=== PATIENT | male | born 1935 | race Caucasian/White ===

== ENCOUNTER 2016-12-10 09:38 | Observation (INO) ==
[2016-12-10] MEDS ORDERED: methylPREDNISolone 125 MG/2 ML VIAL IVP ONE (10:28)
[2016-12-10] MEDS ORDERED: Ipratropium/Albuterol Neb 3 ML IH ONE (10:29)
[2016-12-10] MEDS ORDERED: Ipratropium/Albuterol Neb 3 ML ONE (10:45)
[2016-12-10 11:00] LABS: Basophils % 0.2 %; Eosinophils # 0.2 K/mcL (0.0-0.6); Eosinophils % 2.2 %; Hematocrit 35.9 % (37.5-50.1); Immature Granulocytes % 0.2 % (0-4); Lymphocytes # 1.4 K/mcL (0.6-4.6); Lymphocytes % 15.9 %; Mean Corpuscular HGB Conc 30.6 g/dL (31.6-35.5); Mean Corpuscular Hemoglobin 25.8 pg (28.0-33.3); Mean Corpuscular Volume 84.1 fL (83.0-100.0); Mean Platelet Volume 10.1 fL (9.4-12.4); Monocytes # 0.9 K/mcL (0.0-1.3); Monocytes % 10.9 %; Platelet Count 250 K/mcL (140-400); Red Blood Count 4.27 M/mcL (4.19-5.50); Red Cell Distribution Width 15.4 % (11.5-14.5); Segmented Neutrophils % 70.6 %
[2016-12-10 11:14] LABS: BUN/Creatinine Ratio 16 (6-26); Blood Urea Nitrogen 20 mg/dL (8-26); Calcium 9.1 mg/dL (8.6-10.8); Carbon Dioxide 26 mEq/L (19-29); Chloride 107 mEq/L (98-109); Glucose 90 mg/dL (70-99); Osmolality,Calculated 292 (280-300); Potassium 4.1 mEq/L (3.5-4.5); Sodium 140 mEq/L (136-145); eGFR For African Americans > 60 (> 60); eGFR For Non-African Americans 57 (> 60)
[2016-12-10] MEDS ORDERED: Furosemide 40 MG/4 ML VIAL IVP ONE (13:14)
[2016-12-10] MEDS ORDERED: Acetaminophen 325 MG TABLET PO PRN (14:21)
[2016-12-10] MEDS ORDERED: Naloxone 0.4 MG/ML INJ IVP PRN (14:21)
--- NOTE | 2016-12-10 14:27 | Internal Med History&Physical ---
Date of Encounter: 12/10/16 Time of Encounter: 14:25 Assessment and Plan (1) Acute exacerbation of CHF (congestive heart failure) Current visit: No Status: Acute IV lasix, I/Os Qualifiers: Congestive heart failure type: diastolic Qualified Code(s): I50.33 - Acute on chronic diastolic (congestive) heart failure (2) Atrial fibrillation Current visit: No Status: Chronic on eliquis, continue rate agent. Paroxysmal Qualifiers: Atrial fibrillation type: paroxysmal Qualified Code(s): I48.0 - Paroxysmal atrial fibrillation (3) COPD (chronic obstructive pulmonary disease) Current visit: No Status: Chronic stable. duonebs Qualifiers: COPD type: emphysema Emphysema type: unspecified Qualified Code(s): J43.9 - Emphysema, unspecified (4) CKD (chronic kidney disease) Current visit: No Status: Chronic Qualifiers: Chronic kidney disease stage: stage 3 (moderate) Qualified Code(s): N18.3 - Chronic kidney disease, stage 3 (moderate) Internal Medicine - H&P: HPI Chief complaint: SOB History of present illness: Mr. Abraham is a 81 year old male with hx of P.AFib opon eliquis, CHF, CKD, emphysema who presents with acute onset SOB. SOB reported onset in the last few days. Unable to perform house hold chores such as feeding the chicken or walking around the neighborhood. At baseline, he is on RA. He uses prn lasix as he gain weights. EKG personally reviewed with rate 50, sinus guillaume HISTORY: ORDERING SYSTEM PROVIDED HISTORY: dyspnea Additional tech notes: 1...LAB/IV/RN @[id number] TREATMENT FINDINGS: Cardiac silhouette is enlarged. Small bilateral pleural effusions, greater on the left. Interstitial prominence in the mid and lower lungs. No pneumothorax. Mild wedge compression deformities of the mid thoracic spine. XR/XR chest 2V IMPRESSION: Findings as above likely related to congestive heart failure and mild edema. Past Med Surg Social Fam HX - Past Medical History Medical history: atrial fibrillation, CHF, COPD, GERD, renal disease Psychiatric history: no psych history - Past Surgical History Surgical History: no surgical history - Social History Smoking Status: Former smoker Smokeless Tobacco Status: No Alcohol use: none Drug use: none - Family History Brother Hx Family Cardiac Disorders: Yes (multiple family members with atrial fibrillation) Internal Medicine - H&P: Meds Acetaminophen [Tylenol] 650 mg PO Q6HR PRN 11/10/16 [History] Aspirin [Lo-Dose Aspirin EC] 81 mg PO DAILY 11/10/16 [History] Ergocalciferol (VITAMIN D2) [Vitamin D2] 50,000 unit PO QWEEK 11/10/16 [History] Metoprolol [Lopressor] 50 mg PO BID 11/10/16 [History] Montelukast [Singulair] 10 mg PO DAILY 11/10/16 [History] Ranitidine HCl [Zantac] 150 mg PO BID 11/10/16 [History] Tamsulosin [Flomax] 0.4 mg PO DAILY 11/10/16 [History] Tiotropium Br/Olodaterol HCl [Stiolto Respimat Inhal [place]] 2 puff IH DAILY 11/18 [History] Apixaban [Eliquis] 2.5 mg PO BID #30 tab 11/12/16 [Rx] Furosemide [Lasix] 20 mg PO DAILY #30 tab 11/12/16 [Rx] 3 Allergy/AdvReac Type Severity Reaction Status Date / Time prednisone Allergy See Verified 11/10/16 08:53 Comments All Systems PM: A 10-system review of systems was performed and is negative for pertinent findings except as documented above in the HPI. Review of systems: ROS 14 point review of systems reviewed as best as possible given presentation. Pertinent positive or negative as per HPI or otherwise reviewed as negative - Constitutional Vitals: Temp Pulse Resp BP Pulse Ox 97.9 F 123 15 126/67 95 12/10/16 09:58 12/10/16 13:57 12/10/16 14:21 12/10/16 14:21 12/10/16 13:57 Exam: General - AAO x 3 Psych - Appropriate affect/speech. No agitation Eyes - LOU. Eye lids intact. No scleral icterus Heart - Sinus. RRR. S1 and S2 present. No added HS/murmurs appreciated. No elevated JVD appreciated. Lung - Adequate air entry b/l, and crackles throughout GI - Soft, non-tender. No hepatosplenomegaly/ascites. BS+ - No CVA/suprapubic tenderness or palpable bladder distension Skin - Intact. No rash/petechiae/ecchymosis. Warm extremities. Trace lower extremity edema Internal Med - H&P Results - Labs CBC & Chem 7: 12/10/16 10:50 12/10/16 10:50
--- NOTE | 2016-12-10 14:29 | Emergency Department Note ---
Disposition Clinical Impression: Congestive heart failure Qualifiers: Congestive heart failure type: unspecified congestive heart failure type Congestive heart failure chronicity: acute on chronic Qualified Code(s): I50.9 - Heart failure, unspecified COPD (chronic obstructive pulmonary disease) Qualifiers: COPD type: emphysema Emphysema type: unspecified Qualified Code(s): J43.9 - Emphysema, unspecified Disposition: Admitted As Inpatient Condition: Good Referrals: Jadiel Almodovar MD [Primary Care Provider] - Time of Disposition: 14:35 SOB HPI - General Chief Complaint: ED Shortness of Breath/Dyspnea Stated Complaint: ROGELIO Time Seen by Provider: 12/10/16 10:06 Source: patient Mode of arrival: ambulatory Limitations: no limitations Nursing Notes Reviewed: Yes Vital Signs Reviewed: Yes - History of Present Illness Patient presents to emergency room with increased work of breathing chest heaviness and shortness of breath. He has a history congestive heart failure, paroxysmal A. fib, emphysema. He denies any trauma or injuries. He denies any chest pain fevers chills nausea vomiting or diarrhea. His main complaint is chest pressure. He follows up closely with his housefellow and takes eliquis at home. His atrial fibrillation Pt Subjective Complaint: shortness of breath Onset (ago): day(s) Severity: moderate Consistency/Duration: constant Improves with: rest Worsens with: lying flat, exertion Known history of: COPD, congestive heart failure Associated symptoms: Reports: denies other symptoms Treatment prior to arrival: oxygen Cough present: No Cough Frequency: Intermittent Sputum production: No - Related Data Home oxygen amount: none Home Medications Medication Instructions Recorded Confirmed Acetaminophen [Tylenol] 650 mg PO Q6HR PRN 11/10/16 12/10/16 Aspirin [Lo-Dose Aspirin EC] 81 mg PO DAILY 11/10/16 12/10/16 Ergocalciferol (VITAMIN D2) 50,000 unit PO QWEEK 11/10/16 12/10/16 [Vitamin D2] Metoprolol [Lopressor] 50 mg PO BID 11/10/16 12/10/16 Montelukast [Singulair] 10 mg PO DAILY 11/10/16 12/10/16 Ranitidine HCl [Zantac] 150 mg PO BID 11/10/16 12/10/16 Tamsulosin [Flomax] 0.4 mg PO DAILY 11/10/16 12/10/16 Tiotropium Br/Olodaterol HCl 2 puff IH DAILY 11/10/16 12/10/16 [Stiolto Respimat Inhal [place]] Previous Rx's Medication Instructions Recorded Apixaban [Eliquis] 2.5 mg PO BID #30 tab 11/12/16 Furosemide [Lasix] 20 mg PO DAILY #30 tab 11/12/16 Allergies Allergy/AdvReac Type Severity Reaction Status Date / Time prednisone Allergy See Verified 11/10/16 08:53 Comments All systems ED: reviewed and negative except as stated. Review of Systems: As Per HPI Constitutional: Denies: fever, chills, weakness Cardiovascular: Reports: dyspnea on exertion, orthopnea. Denies: chest pain, palpitations, edema Respiratory: Reports: dyspnea. Denies: cough, wheezes, hemoptysis Gastrointestinal: Denies: abdominal pain, nausea, vomiting, diarrhea Genitourinary: Denies: dysuria, frequency Musculoskeletal: Denies: back pain, neck pain Neurological: Denies: headache, weakness Past Medical History - Past Medical History Attestation: Yes The following information was validated with the patient. Source: patient Medical history: Reports: atrial fibrillation, CHF, COPD, GERD, renal disease Surgical history: Reports: no surgical history Psychiatric history: Reports: no psych history - Social History Smoking Status: Former smoker Smokeless Tobacco Status: No Alcohol use: Reports: none Drug use: Reports: none Physical Exam - General Limitations: no limitations General appearance: alert, in no apparent distress - Head Head exam: atraumatic, normocephalic, normal inspection - ENT ENT exam: normal exam, normal oropharynx, mucous membranes moist - Neck Neck exam: Present: normal inspection, full ROM, trachea midline - Chest Chest inspection: Present: normal inspection, symmetric chest wall rise - Respiratory Respiratory exam: Present: respiratory distress, wheezes, accessory muscle use. Absent: stridor - Cardiovascular Cardiovascular exam: Present: regular rate, normal rhythm, normal heart sounds - Abdominal Exam Abdominal exam: Present: soft, Non-Tender, normal bowel sounds. Absent: tenderness, distention, guarding, rebound, rigidity - Extremities Exam Extremities exam: Present: normal inspection, full ROM, normal capillary refill. Absent: tenderness - Back Exam Back exam: Present: normal inspection, full ROM. Absent: tenderness - Neurological Exam Neurological exam: Present: alert, oriented X3, CN II-XII intact, normal gait - Skin Skin exam: Present: warm, dry, intact, normal color Course Course Narrative: Patient seen and examined the time of arrival. See history of present illness. 81-year-old male presents emergency room for evaluation of chest heaviness and shortness of breath. Has a long-standing history of emphysema, congestive heart failure, paroxysmal atrial fibrillation. Denies any recent medication changes, denies any fevers or chills nausea vomiting or diarrhea. Denies chest pain shortness of breath headache or vision change. No other new symptoms at this time excess for the chest heaviness and feeling like he cannot get a full breath in. Physical exam is relatively unremarkable. Patient has no acute signs of infectious etiology. Trach is midline no stridor noted. Lungs are clear but he does have accessory muscle use and does not take full inspiration. Heart rate is regular with no other issues. Abdomen is soft nontender nondistended. No signs of pitting edema and evaluation. Patient speaking in full sentences alert oriented and in no apparent distress. Vital signs reviewed on presentation patient is otherwise stable. Evaluation be completed for cardiac related issues as well as congestive heart failure presentation. Patient will have present treatments and steroids given here as needed for symptom control of what appears to be emphysema. Lasix to be provided as needed. EKG and troponin labs otherwise going to be ordered. Symptom control will be provided. She will most likely need admission for further evaluate - Reevaluation(s) Reevaluation #1: Patient has negative laboratory workup this time except for elevated BNP. Kidney function is stable at this time. Laboratory workup was otherwise unremarkable. First dose of Lasix given here secondary to what appears to be congestive presentation on chest x-ray. Patient's symptoms have resolved since being provided with a breathing treatment. EKG showed sinus rhythm bradycardia with normal intervals and normal axis. No acute signs of ST segment elevation or concern. Patient to be admitted for what appears to be congestive heart failure. Detailed conversation with the accepting physician Dr. junior was completed. No other recommendations or concerns noted at this time. Patient is otherwise stable and in no distress at the time of admission. Time: 14:34 Vital Signs Temperature 97.9 F 12/10/16 09:58 Pulse Rate 60 12/10/16 09:58 Respiratory Rate 18 12/10/16 09:58 Blood Pressure 142/51 12/10/16 09:58 O2 Sat by Pulse Oximetry 94 12/10/16 09:58 Temperature 97.9 F 12/10/16 09:58 Pulse Rate 123 12/10/16 13:57 Respiratory Rate 15 12/10/16 14:21 Blood Pressure 126/67 12/10/16 14:21 O2 Sat by Pulse Oximetry 95 12/10/16 13:57 Oxygen Delivery Oxygen Delivery Nasal Cannula Shortness of Breath/Dyspnea - MDM Narrative Medical decision making narrative: Congestive heart failure, exertional dyspnea, chest pressure - Medical Records Medical records reviewed: Yes I reviewed the patient's medical records. - Lab Data Lab results reviewed: Yes I reviewed the patient's lab results. Result diagrams: 12/10/16 10:50 12/10/16 10:50 Lab Results 12/10/16 12/10/16 12/10/16 Range/Units 10:50 10:50 10:50 WBC 8.5 (4.3-11.1) K/mcL RBC 4.27 (4.19-5.50) M/mcL Hgb 11.0 L (12.9-16.9) g/dL Hct 35.9 L (37.5-50.1) % MCV 84.1 (83.0-100.0) fL MCH 25.8 L (28.0-33.3) pg MCHC 30.6 L (31.6-35.5) g/dL RDW 15.4 H (11.5-14.5) % Plt Count 250 (140-400) K/mcL MPV 10.1 (9.4-12.4) fL Immature Gran % 0.2 (0-4) % Seg Neutrophils % 70.6 % Lymphocytes % 15.9 % Monocytes % 10.9 % Eosinophils % 2.2 % Basophils % 0.2 % Neutrophils # 6.0 (1.6-8.9) K/mcL Lymphocytes # 1.4 (0.6-4.6) K/mcL Monocytes # 0.9 (0.0-1.3) K/mcL Eosinophils # 0.2 (0.0-0.6) K/mcL Basophils # 0.0 (0.0-0.2) K/mcL Sodium 140 (136-145) mEq/L Potassium 4.1 (3.5-4.5) mEq/L Chloride 107 (98-109) mEq/L Carbon Dioxide 26 (19-29) mEq/L BUN 20 (8-26) mg/dL Creatinine 1.23 (0.72-1.25) mg/dL Est GFR ( Amer) > 60 (> 60) Est GFR (Non-Af Amer) 57 L (> 60) BUN/Creatinine Ratio 16 (6-26) Glucose 90 (70-99) mg/dL Calculated Osmolality 292 (280-300) Lactic Acid 0.7 (0.5-2.2) mmol/L Calcium 9.1 (8.6-10.8) mg/dL Troponin I (0-0.03) ng/mL B-Natriuretic Peptide (0-100) pg/mL 12/10/16 12/10/16 Range/Units 10:50 10:50 WBC (4.3-11.1) K/mcL RBC (4.19-5.50) M/mcL Hgb (12.9-16.9) g/dL Hct (37.5-50.1) % MCV (83.0-100.0) fL MCH (28.0-33.3) pg MCHC (31.6-35.5) g/dL RDW (11.5-14.5) % Plt Count (140-400) K/mcL MPV (9.4-12.4) fL Immature Gran % (0-4) % Seg Neutrophils % % Lymphocytes % % Monocytes % % Eosinophils % % Basophils % % Neutrophils # (1.6-8.9) K/mcL Lymphocytes # (0.6-4.6) K/mcL Monocytes # (0.0-1.3) K/mcL Eosinophils # (0.0-0.6) K/mcL Basophils # (0.0-0.2) K/mcL Sodium (136-145) mEq/L Potassium (3.5-4.5) mEq/L Chloride (98-109) mEq/L Carbon Dioxide (19-29) mEq/L BUN (8-26) mg/dL Creatinine (0.72-1.25) mg/dL Est GFR ( Amer) (> 60) Est GFR (Non-Af Amer) (> 60) BUN/Creatinine Ratio (6-26) Glucose (70-99) mg/dL Calculated Osmolality (280-300) Lactic Acid (0.5-2.2) mmol/L Calcium (8.6-10.8) mg/dL Troponin I 0.01 (0-0.03) ng/mL B-Natriuretic Peptide 1718 H (0-100) pg/mL - Radiology Data Radiology results reviewed: Yes I reviewed the patient's radiology results. Chest x-ray shows pulmonary congestion otherwise no signs of infiltrate - EKG Data EKG attestation: Yes I reviewed and interpreted this EKG. EKG shows normal: Reports: sinus rhythm, axis, intervals, QRS complexes, ST-T waves Rate: Reports: bradycardia Rhythm: Reports: NSR When compared to previous EKG there are: no significant changes Interpretation: Reports: no acute changes, unchanged when compared to prior tracing (date)
[2016-12-10] MEDS: Furosemide 40 MG/4 ML VIAL IVP SCH (18:26)
[2016-12-10] MEDS: APIXABAN 5 MG TABLET PO SCH (20:33)
[2016-12-10] MEDS: Famotidine 20 MG TABLET PO SCH (20:33)
[2016-12-11 05:05] LABS: Calcium 9.1 mg/dL (8.6-10.8); Magnesium 1.7 mg/dL (1.6-2.6); Potassium 3.6 mEq/L (3.5-4.5)
[2016-12-11] MEDS: Aspirin Enteric Coated 81 MG Tablet PO SCH (08:30)
[2016-12-11] MEDS: APIXABAN 5 MG TABLET PO SCH ×2 (08:30→22:28)
[2016-12-11] MEDS: Furosemide 40 MG/4 ML VIAL IVP SCH (08:31)
[2016-12-11] MEDS: Famotidine 20 MG TABLET PO SCH (08:31)
[2016-12-11] MEDS ORDERED: Tiotropium Br/Olodaterol Hcl [Stiolto Respimat Inhal IH SCH (09:00)
[2016-12-11] MEDS ORDERED: Potassium Chloride Elixir 20 MEQ/15 ML UDC PO ONE (09:38)
[2016-12-11] MEDS ORDERED: Magnesium Sulfate 2 GM in D5% in Water 100 ML IVPB ONE (09:39)
[2016-12-11] MEDS ORDERED: Levalbuterol Neb 0.63 MG/3 ML IH PRN (11:57)
--- NOTE | 2016-12-11 14:03 | Internal Med Progress Note ---
<RocaelflowerKanchan - Last Filed: 12/11/16 13:59> Date of Encounter: 12/11/16 Time of Encounter: 09:45 - Assessment and plan (1) Acute exacerbation of CHF (congestive heart failure) Current Visit: Yes Status: Acute Assessment and plan: Patient with physical exam findings, chest x-ray, and BNP value of 1700 also suggestive of acute exacerbation of congestive heart failure. -Monitor I's and O's. -IV Lasix was dropped to 20 mg a day today as patient had a bump in his creatinine overnight from 1.23-1.41. -Echocardiogram on 08-18-16 shows an ejection fraction of 60%. Mild to moderate mitral regurgitation and moderate to severe aortic stenosis. Qualifiers: Congestive heart failure type: diastolic Qualified Code(s): I50.33 - Acute on chronic diastolic (congestive) heart failure (2) COPD (chronic obstructive pulmonary disease) Current Visit: No Status: Chronic Assessment and plan: Patient has been tachycardic overnight to the low 100s. -We will give him Xopenex instead of albuterol containing meds. -Spiriva inhaler once a day. -This does not appear to be a COPD exacerbation as patient does not have any wheezes on physical exam. Qualifiers: COPD type: emphysema Emphysema type: unspecified Qualified Code(s): J43.9 - Emphysema, unspecified (3) Atrial fibrillation Current Visit: No Status: Chronic Assessment and plan: Patient on Eliquis for anticoagulation and metoprolol for rate control. Qualifiers: Atrial fibrillation type: paroxysmal Qualified Code(s): I48.0 - Paroxysmal atrial fibrillation (4) CKD (chronic kidney disease) Current Visit: No Status: Chronic Assessment and plan: Patient's creatinine elevated to 1.41 from 1.23 yesterday which is his baseline. -We will continue to encourage oral intake. Decrease the amount of Lasix to 20 mg IV daily. -Avoid nephrotoxic agents. - Qualifiers: Chronic kidney disease stage: stage 3 (moderate) Qualified Code(s): N18.3 - Chronic kidney disease, stage 3 (moderate) (5) Aortic stenosis Current Visit: No Status: Chronic Assessment and plan: Patient has close cardiology follow-up for his aortic stenosis which is moderate to severe. Qualifiers: Cardiac valve disease etiology: etiology unspecified Qualified Code(s): I35.0 - Nonrheumatic aortic (valve) stenosis (6) DVT prophylaxis Current Visit: Yes Status: Acute Assessment and plan: Patient taking Eliquis. - Subjective Interval history: Mr. Eric Rushing is a 81-year-old male with past medical history of atrial fibrillation on request, CHF, CAD and COPD who presented to the emergency department with acute onset of shortness of breath. Patient said chest x-ray and physical exam suggestive of congestive heart failure acute exacerbation. Patient was started on Lasix upon admission to the hospital. This morning, patient says he feels great and he is ready to be discharged from the hospital. He denies any shortness of breath, dizziness, or lightheadedness. He does state he has orthopnea for the first 5 minutes of laying down at night. This is normally resolved by sitting in his chair. He stated he was able to sleep laying flat last night. Patient's is next to him at the bedside and is able to fill in on all of his history. She is very inquisitive and involved in his medical decision making. - Constitutional Vitals: Temp Pulse Resp BP Pulse Ox 97.4 F L 81 14 115/54 92 12/11/16 11:33 12/11/16 11:33 12/11/16 11:33 12/11/16 11:33 12/11/16 11:33 General appearance: Present: cooperative, A&O X 3, pleasant, answers questions appropriately - Respiratory Respiratory exam: Present: rales (Bilateral lower lobes.). Absent: respiratory distress, rhonchi, wheezes, tachypnea - Cardiovascular Cardiovascular exam: Present: RRR, +S1, +S2. Absent: diastolic murmur, systolic murmur - GI/Abdominal GI/Abdominal exam: Present: normal bowel sounds, soft, no peritoneal signs. Absent: distended, tenderness - Extremities Exam Extremities exam: Present: warm, radial pulses palpable and symmetrical. Absent : calf tenderness, cyanotic, pedal edema Internal Medicine: Result - Labs CBC & Chem 7: 12/10/16 10:50 12/11/16 04:22 Labs: BMP 12/11/16 04:22 Sodium 138 Potassium 3.6 Chloride 103 Carbon Dioxide 26 BUN 27 H Creatinine 1.41 H Glucose 152 H Calcium 9.1 Cardiac Enzymes 12/10/16 12/10/16 12/11/16 Range/Units 15:00 19:41 04:22 Troponin I 0.01 0.00 0.02 (0-0.03) ng/mL Consult Discharge Plan - Plan Referrals: Jadiel Almodovar MD [Primary Care Provider] - <Marianna Mcbride - Last Filed: 12/11/16 15:52> Date of Encounter: 12/11/16 - Constitutional Vitals: Temp Pulse Resp BP Pulse Ox 97.4 F L 81 14 115/54 92 12/11/16 11:33 12/11/16 11:33 12/11/16 11:33 12/11/16 11:33 12/11/16 11:33 Internal Medicine: Result - Labs CBC & Chem 7: 12/10/16 10:50 12/11/16 04:22 Labs: BMP 12/11/16 04:22 Sodium 138 Potassium 3.6 Chloride 103 Carbon Dioxide 26 BUN 27 H Creatinine 1.41 H Glucose 152 H Calcium 9.1 Cardiac Enzymes 12/10/16 12/11/16 Range/Units 19:41 04:22 Troponin I 0.00 0.02 (0-0.03) ng/mL - Attending Attestation I saw and examined patient independently. I have discussed with the resident Dr Hernandez regarding management plan. I agree with the documentation. Patient has history of multiple valve disease and CHF. Has limitation of using diuretics because of CKD. Presented with shortness of breath, elevated BNP, and chest x-ray shows pulmonary edema. Diagnosed as CHF exacerbation. Patient said shortness of breath as improved. Cumulative I/O -1815ml. We will continue diuretics but to decrease the dose with consent of kidney injury. Closely follow up renal function
[2016-12-12 05:50] LABS: Basophils % 0.1 %; Eosinophils % 0.1 %; Hematocrit 36.5 % (37.5-50.1); Hemoglobin 11.6 g/dL (12.9-16.9); Immature Granulocytes % 0.4 % (0-4); Lymphocytes # 2.6 K/mcL (0.6-4.6); Lymphocytes % 16.3 %; Mean Corpuscular HGB Conc 31.8 g/dL (31.6-35.5); Mean Corpuscular Hemoglobin 27.2 pg (28.0-33.3); Mean Corpuscular Volume 85.5 fL (83.0-100.0); Mean Platelet Volume 10.8 fL (9.4-12.4); Monocytes # 1.3 K/mcL (0.0-1.3); Platelet Count 316 K/mcL (140-400); Red Blood Count 4.27 M/mcL (4.19-5.50); Red Cell Distribution Width 15.9 % (11.5-14.5); Segmented Neutrophils % 75.1 %
[2016-12-12 06:04] LABS: Calcium 8.7 mg/dL (8.6-10.8); Magnesium 2.2 mg/dL (1.6-2.6); Potassium 3.8 mEq/L (3.5-4.5)
[2016-12-12] MEDS: Tiotropium 18 MCG inhalation IH SCH (08:09)
[2016-12-12] MEDS: APIXABAN 5 MG TABLET PO SCH ×2 (08:46→20:00)
[2016-12-12] MEDS: Aspirin Enteric Coated 81 MG Tablet PO SCH (08:47)
[2016-12-12] MEDS ORDERED: Furosemide 20 MG/2 ML VIAL IVP SCH (09:00)
[2016-12-12] MEDS ORDERED: Furosemide 40 MG/4 ML VIAL IVP SCH (09:00)
[2016-12-12] MEDS ORDERED: Famotidine 20 MG TABLET PO SCH (09:00)
[2016-12-12] MEDS ORDERED: Furosemide 20 MG TABLET PO SCH (10:30)
--- NOTE | 2016-12-12 11:20 | Electrocardiograph Report ---
[facility] Test Date: 2016-12-10 Pat Name: Jaspreet Abraham Department: 103 Room: 3A36 Gender: M Salon Coordinator: JAYRO : 1935 Requested By: Willie Durant Order Number: [id number] Reading MD: Norman Powell MD Measurements Intervals [place] Rate: 50 P: 28 HI: 156 QRS: -15 QRSD: 88 T: 15 QT: 457 QTc: 432 Interpretive Statements SINUS BRADYCARDIA Electronically Signed On 12-12-2016 11:19:19 EDT by Norman Powell MD
--- NOTE | 2016-12-12 16:09 | Internal Med Progress Note ---
<RocaeljonathanKanchan pozo - Last Filed: 12/12/16 16:06> Date of Encounter: 12/12/16 Time of Encounter: 11:00 - Assessment and plan (1) Leukocytosis Current Visit: Yes Status: Acute Assessment and plan: Patient with a white blood cell count from 8.5-16 overnight. -Patient received steroids in the emergency department. This is likely secondary to steroid. -Repeat chest x-ray normal. -We will monitor to make sure trending down tomorrow. -If trending down, we will discharge the patient home with follow-up with Dr. Carr and Dr. Rausch. Qualifiers: Leukocytosis type: unspecified Qualified Code(s): D72.829 - Elevated white blood cell count, unspecified (2) Acute exacerbation of CHF (congestive heart failure) Current Visit: Yes Status: Acute Assessment and plan: Patient with physical exam findings, chest x-ray, and BNP value of 1700 also suggestive of acute exacerbation of congestive heart failure. -Monitor I's and O's. -IV Lasix was held today as his creatinine continues to trend up from 1.4 yesterday to 1.54 today. -Echocardiogram on 08-18-16 shows an ejection fraction of 60%. Mild to moderate mitral regurgitation and moderate to severe aortic stenosis. -Patient will follow up with Dr. Carr in cardiology within 3 days being discharge from hospital. Qualifiers: Congestive heart failure type: diastolic Qualified Code(s): I50.33 - Acute on chronic diastolic (congestive) heart failure (3) COPD (chronic obstructive pulmonary disease) Current Visit: No Status: Chronic Assessment and plan: Patient's tachycardia has resolved. We will continue current treatment for COPD. -We will give him Xopenex instead of albuterol containing meds. -Spiriva inhaler once a day. -This does not appear to be a COPD exacerbation as patient does not have any wheezes on physical exam. Qualifiers: COPD type: emphysema Emphysema type: unspecified Qualified Code(s): J43.9 - Emphysema, unspecified (4) Atrial fibrillation Current Visit: No Status: Chronic Assessment and plan: Patient on Eliquis for anticoagulation and metoprolol for rate control. Qualifiers: Atrial fibrillation type: paroxysmal Qualified Code(s): I48.0 - Paroxysmal atrial fibrillation (5) CKD (chronic kidney disease) Current Visit: No Status: Chronic Assessment and plan: Patient's creatinine trending upwards. -We will continue to encourage oral intake. Hold Lasix today. -Avoid nephrotoxic agents. -Follow-up with Dr. Martell in nephrology upon discharge. - Qualifiers: Chronic kidney disease stage: stage 3 (moderate) Qualified Code(s): N18.3 - Chronic kidney disease, stage 3 (moderate) (6) Aortic stenosis Current Visit: No Status: Chronic Qualifiers: Cardiac valve disease etiology: etiology unspecified Qualified Code(s): I35.0 - Nonrheumatic aortic (valve) stenosis (7) DVT prophylaxis Current Visit: Yes Status: Acute Assessment and plan: Patient taking Eliquis. - Subjective Interval history: Mr. Eric Rushing is a 81-year-old male with past medical history of atrial fibrillation on request, CHF, CAD and COPD who presented to the emergency department with acute onset of shortness of breath. Patient said chest x-ray and physical exam suggestive of congestive heart failure acute exacerbation. Patient was started on Lasix upon admission to the hospital. He denies any shortness of breath, dizziness, or lightheadedness. He does state he has orthopnea for the first 5 minutes of laying down at night. This is normally resolved by sitting in his chair. He stated he was able to sleep laying flat last night. Patient's is next to him at the bedside and is able to fill in on all of his history. She is very inquisitive and involved in his medical decision making. Patient feels comfortable to be discharged as he is feeling well with no complaints. - Constitutional Vitals: Temp Pulse Resp BP Pulse Ox 97.6 F 63 16 138/57 94 12/12/16 14:42 12/12/16 14:42 12/12/16 14:42 12/12/16 14:42 12/12/16 14:42 General appearance: Present: cooperative, A&O X 3, pleasant, answers questions appropriately - Respiratory Respiratory exam: Present: CTAB, rales (mild and improved from yesterday), rhonchi (mild). Absent: accessory muscle use, respiratory distress, wheezes - Cardiovascular Cardiovascular exam: Present: RRR, +S1, +S2. Absent: diastolic murmur, gallop, rubs, systolic murmur - GI/Abdominal GI/Abdominal exam: Present: normal bowel sounds, soft, no peritoneal signs. Absent: distended, tenderness - Extremities Exam Extremities exam: Present: warm, radial pulses palpable and symmetrical. Absent : calf tenderness, cyanotic, pedal edema Internal Medicine: Result - Labs CBC & Chem 7: 12/12/16 04:40 12/12/16 04:40 Labs: Short CBC 12/12/16 Range/Units 04:40 WBC 16.0 H D (4.3-11.1) K/mcL Hgb 11.6 L (12.9-16.9) g/dL Hct 36.5 L (37.5-50.1) % Plt Count 316 (140-400) K/mcL Neutrophils # 12.0 H (1.6-8.9) K/mcL BMP 12/12/16 04:40 Sodium 140 Potassium 3.8 Chloride 104 Carbon Dioxide 28 BUN 39 H D Creatinine 1.54 H Glucose 125 H Calcium 8.7 - Impressions Impressions Chest X-Ray 12/12/16 10:28 IMPRESSION: COPD. No acute cardiopulmonary process. D/ / 12/12/2016 11:38:03 Vianney Soriano MD / [email or web address] Interpreting Provider: Vianney Soriano MD Consult Discharge Plan - Plan Referrals: Jadiel Almodovar MD [Primary Care Provider] - 12/17/16 11:15 am <ReedRayhernán - Last Filed: 12/12/16 16:38> Date of Encounter: 12/12/16 - Constitutional Vitals: Temp Pulse Resp BP Pulse Ox 97.6 F 63 16 138/57 94 12/12/16 14:42 12/12/16 14:42 12/12/16 14:42 12/12/16 14:42 12/12/16 14:42 Internal Medicine: Result - Labs CBC & Chem 7: 12/12/16 04:40 12/12/16 04:40 Labs: Short CBC 12/12/16 Range/Units 04:40 WBC 16.0 H D (4.3-11.1) K/mcL Hgb 11.6 L (12.9-16.9) g/dL Hct 36.5 L (37.5-50.1) % Plt Count 316 (140-400) K/mcL Neutrophils # 12.0 H (1.6-8.9) K/mcL BMP 12/12/16 04:40 Sodium 140 Potassium 3.8 Chloride 104 Carbon Dioxide 28 BUN 39 H D Creatinine 1.54 H Glucose 125 H Calcium 8.7 - Impressions Impressions Chest X-Ray 12/12/16 10:28 IMPRESSION: COPD. No acute cardiopulmonary process. D/ / 12/12/2016 11:38:03 Vianney Soriano MD / bcarter Interpreting Provider: Vianney Soriano MD - Attending Attestation I saw and examined the patient independently. I have discussed with resident Dr Victoria regarding the management plan, agree with the documentation. Patient has elevated WBC. Denies sore throat, cough, abdominal pain, nausea vomiting, diarrhea, urination symptoms, any wound in body. No fever, no signs of infection. Review his medication, patient has received Solu-Medrol 125 mg IV once in emergency room, which probably contributed to leukocytosis. Patient has a mild elevated creatinine level. We will hold Lasix for today and a follow -up renal function and CBC in a.m.
[2016-12-13 03:54] LABS: Basophils % 0.2 %; Eosinophils # 0.2 K/mcL (0.0-0.6); Eosinophils % 1.6 %; Hematocrit 36.3 % (37.5-50.1); Hemoglobin 11.3 g/dL (12.9-16.9); Immature Granulocytes % 0.6 % (0-4); Lymphocytes # 2.7 K/mcL (0.6-4.6); Lymphocytes % 22.1 %; Mean Corpuscular HGB Conc 31.1 g/dL (31.6-35.5); Mean Corpuscular Hemoglobin 27.1 pg (28.0-33.3); Mean Corpuscular Volume 87.1 fL (83.0-100.0); Mean Platelet Volume 10.2 fL (9.4-12.4); Monocytes # 1.6 K/mcL (0.0-1.3); Monocytes % 12.8 %; Neutrophils # 7.6 K/mcL (1.6-8.9); Platelet Count 316 K/mcL (140-400); Red Blood Count 4.17 M/mcL (4.19-5.50); Red Cell Distribution Width 15.9 % (11.5-14.5); Segmented Neutrophils % 62.7 %
[2016-12-13 04:12] LABS: Calcium 8.6 mg/dL (8.6-10.8); Potassium 3.9 mEq/L (3.5-4.5)
[2016-12-13 06:54] VITALS: BP 146/55
[2016-12-13] MEDS: APIXABAN 5 MG TABLET PO SCH (08:52)
[2016-12-13] MEDS: Aspirin Enteric Coated 81 MG Tablet PO SCH (08:52)
[2016-12-13] MEDS: Tiotropium 18 MCG inhalation IH SCH (11:00)
--- NOTE | 2016-12-13 12:03 | Discharge Summary ---
Addendum entered and electronically signed by Kanchan Hernandez MD 12/13/16 16 :25: The first line of the hospital course was entered incorrectly. The patient was admitted for an acute exacerbation of CHF not COPD. Original Note: <Kanchan Hernandez - Last Filed: 12/13/16 16:10> Date of Encounter: 12/13/16 Time of Encounter: 11:00 - Discharge Diagnosis (1) Acute exacerbation of CHF (congestive heart failure) Priority: Primary Status: Acute Qualifiers: Congestive heart failure type: diastolic Qualified Code(s): I50.33 - Acute on chronic diastolic (congestive) heart failure (2) Leukocytosis Priority: Secondary Status: Acute Qualifiers: Leukocytosis type: unspecified Qualified Code(s): D72.829 - Elevated white blood cell count, unspecified (3) COPD (chronic obstructive pulmonary disease) Priority: Secondary Status: Chronic Qualifiers: COPD type: emphysema Emphysema type: unspecified Qualified Code(s): J43.9 - Emphysema, unspecified (4) Atrial fibrillation Priority: Secondary Status: Chronic Qualifiers: Atrial fibrillation type: paroxysmal Qualified Code(s): I48.0 - Paroxysmal atrial fibrillation (5) CKD (chronic kidney disease) Priority: Secondary Status: Chronic Qualifiers: Chronic kidney disease stage: stage 3 (moderate) Qualified Code(s): N18.3 - Chronic kidney disease, stage 3 (moderate) (6) Aortic stenosis Priority: Secondary Status: Chronic Qualifiers: Cardiac valve disease etiology: etiology unspecified Qualified Code(s): I35.0 - Nonrheumatic aortic (valve) stenosis (7) DVT prophylaxis Priority: Secondary Status: Acute - Discharge Medications Home Medications: Acetaminophen [Tylenol] 650 mg PO Q6HR PRN 11/10/16 [History] Aspirin [Lo-Dose Aspirin EC] 81 mg PO DAILY 11/10/16 [History] Ergocalciferol (VITAMIN D2) [Vitamin D2] 50,000 unit PO QWEEK 11/10/16 [History] Metoprolol [Lopressor] 50 mg PO BID 11/10/16 [History] Montelukast [Singulair] 10 mg PO DAILY 11/10/16 [History] Ranitidine HCl [Zantac] 150 mg PO BID 11/10/16 [History] Tamsulosin [Flomax] 0.4 mg PO DAILY 11/10/16 [History] Tiotropium Br/Olodaterol HCl [Stiolto Respimat Inhal [place]] 2 puff IH DAILY 11/18 [History] Apixaban [Eliquis] 2.5 mg PO BID #30 tab 11/12/16 [Rx] Furosemide [Lasix] 20 mg PO DAILY #30 tab 11/12/16 [Rx] Allergies/Adverse Reactions: 3 Allergy/AdvReac Type Severity Reaction Status Date / Time prednisone Allergy See Verified 11/10/16 08:53 Comments Date of admission: 12/10/16 13:54 Primary care physician: Jadiel Almodovar, Consults: 12/10/16 15:33 Consult to Nutrition [CONS] Routine Comment: Consulting Provider: NUTRITION Reason for Dietary Consult: MST Score - Patient Status Disposition: Home, Self-Care Condition: Good Functional capacity at discharge: independent ambulation Overall status at discharge: patient is back to baseline - Discharge Instructions Instructions: Heart Failure (DC) Follow Up With: Crow Hinkle DO [Partnered Physician] - 01/03/17 2:40 pm Jadiel Almodovar MD [Primary Care Provider] - 12/17/16 11:15 am Edgar Carr MD [Partnered Physician] - (Office will call patient at home with appointment.) Forms: ED Satisfaction Letter Additional Instructions: Please follow-up with Dr. Carr your resistor coater within the next week. You also need to follow-up with Dr. Hinkle, a face cleaner, at the above provided information. Also, please follow up with your PCP in the next 1-2 weeks. - Diet and Activity Activity: increase activity as tolerated Diet: low fat, low cholesterol, low salt diet Hospital course: Mr. Abraham is a 81 year old male wiht PMHX of afib on eliquis, CHF, CKD, and COPD admitted for acute COPD exacerbation. Patient was started on IV Lasix and strict I&O monitoring. Patient's IV Lasix was initially started at 40 mg a day however the patient had a bump in his creatinine from 1.23-1.41, therefore, we decreased it initially to 20 mg a day. Patient was very sensitive to IV lasix. We held his dose yesterday altogether as his symptoms had fully resolved, and we wanted to reduce the nephrotoxic affects to the kidney. Patient had some tachycardia during his stay for which we treated him with Xopenex instead of albuterol. This was different from his at-home medication. Patient's physical exam findings, chest x-ray and BNP were suggestive of an acute exacerbation. There were no wheezes heard on exam, therefore, we had minimal suspicion of a COPD exacerbation. Patient received his home medications of eliquis for anticoagulation for atrial fibrillation, as well as metoprolol for rate control. Patient did receive a dose of Solu-Medrol in the emergency department , which we believe led to a transient leukocytosis on hospital day 2. Patient had a white blood cell count elevation from 8.5-16 overnight. This trended down to 12.2 today. Patient was very eager to be discharged home. Patient and his were very engaged in the patient's medical care. They expressed explicit understanding of all of the findings and plan for discharge. Patient will have follow-up with Dr. Carr in cardiology within the next week as well as Dr. Hinkle in nephrology within the next 2 weeks. We have discharged the patient home with instructions to take his Lasix at his already prescribed regimen which is 20 mg twice a week. He has follow-up with his resistor coater already scheduled to make whatever adjustments are recommended at that time. Patient was counseled on dietary modifications including low salt and watching his fluid intake for management of his congestive heart failure. All questions were answered. - Time Spent with Patient Total time spent providing and/or coordinating discharge services: - Constitutional Vitals: Temp Pulse Resp BP Pulse Ox 98.1 F 57 16 146/55 96 12/13/16 06:50 12/13/16 06:50 12/13/16 11:01 12/13/16 06:50 12/13/16 11:01 General appearance: Present: cooperative, A&O X 3, pleasant, answers questions appropriately - Respiratory Respiratory exam: Present: CTAB. Absent: accessory muscle use, rales, respiratory distress, rhonchi, wheezes - Cardiovascular Cardiovascular exam: Present: RRR, +S1, +S2. Absent: diastolic murmur, gallop, rubs, systolic murmur - GI/Abdominal GI/Abdominal exam: Present: normal bowel sounds, soft, no peritoneal signs. Absent: distended, tenderness - Extremities Exam Extremities exam: Present: warm, radial pulses palpable and symmetrical. Absent : calf tenderness, cyanotic, pedal edema <Marianna Mcbride - Last Filed: 12/13/16 16:29> Date of Encounter: 12/13/16 Date of admission: 12/10/16 13:54 Primary care physician: Jadiel Almodovar, Consults: 12/10/16 15:33 Consult to Nutrition [CONS] Routine Comment: Consulting Provider: NUTRITION Reason for Dietary Consult: MST Score Hospital course: Mr. Abraham is a 81 year old male - Time Spent with Patient Total time spent providing and/or coordinating discharge services: - Constitutional Vitals: Temp Pulse Resp BP Pulse Ox 98.1 F 57 16 146/55 96 12/13/16 06:50 12/13/16 06:50 12/13/16 11:01 12/13/16 06:50 12/13/16 11:01 - Attending Attestation I have seen and examined the patient independently. I have discussed with the resident Dr Hernandez regarding the discharge plan, agreed with the documentation. Patient was admitted for CHF exacerbation. He was treated with IV Lasix. After treatment, his symptoms has improved, back to his baseline. Patient will discharge home, continue by mouth Lasix, closely follow up with PCP, cardiology , and the nephrology as outpatient. Patient will see PCP within one week.
== END 2016-12-13 12:17 | disposition home or self-care (01) ==
LOC: EMEROO 09:38 → 3ANU 09:38 → SUATTDRO 13:54 → 3ANU 14:30
PROVIDERS: ADMIT Internal Medicine; ATTEND Internal Medicine

== ENCOUNTER 2017-02-17 08:53 | Inpatient (IN) ==
--- NOTE | 2017-02-17 09:01 | Emergency Department Note ---
Disposition Clinical Impression: Acute exacerbation of chronic obstructive airways disease, Elevated troponin, Atrial fibrillation with rapid ventricular response, Influenza A, Hypoxia Acute exacerbation of CHF (congestive heart failure) Qualifiers: Congestive heart failure type: unspecified congestive heart failure type Qualified Code(s): I50.9 - Heart failure, unspecified Disposition: Admitted As Inpatient Condition: Fair Time of Disposition: 10:35 SOB HPI - General Chief Complaint: ED Shortness of Breath/Dyspnea Stated Complaint: ROGELIO Time Seen by Provider: 02/17/17 08:59 Source: patient, family () Limitations: no limitations Nursing Notes Reviewed: Yes Vital Signs Reviewed: Yes - History of Present Illness 81-year-old male history of congestive heart failure, atrial fibrillation on eloquence and metoprolol, COPD no oxygen supplementation presents to the ED for difficulty breathing. Why states earlier this morning around 330 patient woke up with increase worker breathing, shortness of breath with a chest tightness radiation up to the shoulder. This lasted about 30 minutes. Improved with rest. He denied any diaphoresis or nausea. He did a breathing treatment this morning with some minimal relief. He reports allergy to prednisone as it increases his heart rate. Since then he has had a hard time catching his breath and requested to be seen and evaluated. Reports over the past 5 days he has been having a nonproductive cough, no rhinorrhea. had similar symptoms. Denies any fever or chills. He recently saw his boat canvas maker installer Dr. Bernal and was reportedly only 40% lung function. They did a walk test and he did not require home oxygen supplementation. A few weeks ago he also saw his metal cnc operator Dr. Frias who adjusted his Metoprolol decreasing it down to 25 mg once a day instead of twice. Currently patient is in atrial fibrillation with a heart rate of 130. He denies any palpitations states in the past he never feels it. He does not know when he goes in and out. His last EKG 2 months ago shows sinus rhythm. Oxygen saturation 93%. At this time chest pain workup initiated. We will give him a dose of his home Lopressor to bring his heart rate down and treat them for possible COPD exacerbation. Also obtain flu swab. Pt Subjective Complaint: shortness of breath - Related Data Home Medications Medication Instructions Recorded Confirmed Acetaminophen [Tylenol] 650 mg PO Q6HR PRN 11/10/16 02/17/17 Aspirin [Lo-Dose Aspirin EC] 81 mg PO DAILY 11/10/16 02/17/17 Ergocalciferol (VITAMIN D2) 50,000 unit PO WE 11/10/16 02/17/17 [Vitamin D2] Montelukast [Singulair] 10 mg PO QAM 11/10/16 02/17/17 Tamsulosin [Flomax] 0.4 mg PO QPM 11/10/16 02/17/17 Albuterol Neb [Proventil Neb] 2.5 mg IH TID PRN 02/17/17 02/17/17 Albuterol Sulfate [Ventolin Hfa] 2 puff IH Q6H PRN 02/17/17 02/17/17 Budesonide/Formoterol 160/4.5 2 puff IH BIDR 02/17/17 02/17/17 [Symbicort 160/4.5] Furosemide [Lasix] 20 mg PO Q48H 02/17/17 02/17/17 Metoprolol Succinate 25 mg PO DAILY 02/17/17 02/17/17 Omeprazole [PriLOSEC] 40 mg PO QAM 02/17/17 02/17/17 Previous Rx's Medication Instructions Recorded Apixaban [Eliquis] 2.5 mg PO BID #30 tab 11/12/16 Allergies Allergy/AdvReac Type Severity Reaction Status Date / Time prednisone Allergy rash/sweats Verified 02/17/17 10:51 All systems ED: reviewed and negative except as stated. Review of Systems: As Per HPI Constitutional: Denies: fever, chills ENT ED: Reports: congestion. Denies: dysphagia Cardiovascular: Reports: chest pain, dyspnea on exertion. Denies: palpitations Respiratory: Reports: cough, dyspnea, wheezes Gastrointestinal: Denies: abdominal pain, nausea, vomiting Genitourinary: Denies: urgency, dysuria Musculoskeletal: Denies: back pain Integumentary: Denies: rash, abrasion, lesions Neurological: Denies: headache Past Medical History - Past Medical History Attestation: Yes The following information was validated with the patient. Source: patient Medical history: Reports: atrial fibrillation, CHF, COPD, GERD, renal disease Surgical history: Reports: no surgical history Psychiatric history: Reports: no psych history - Social History Smoking Status: Former smoker Smokeless Tobacco Status: No Alcohol use: Reports: none Drug use: Reports: none Physical Exam - General Limitations: no limitations General appearance: alert, in no apparent distress - Head Head exam: atraumatic, normocephalic, normal inspection - Eye Eye exam: Present: normal appearance, PERRL, EOMI - ENT ENT exam: normal exam, normal oropharynx, mucous membranes moist - Neck Neck exam: Present: normal inspection, full ROM, trachea midline - Chest Chest inspection: Present: normal inspection, symmetric chest wall rise. Absent : tenderness - Respiratory Respiratory exam: Present: wheezes, other (Tight with diminished aeration bilaterally). Absent: respiratory distress - Expanded Respiratory Exam Location: wheezes: Right, decreased breath sounds: Left, Right - Cardiovascular Cardiovascular exam: Present: tachycardia, irregular rhythm, normal heart sounds - Abdominal Exam Abdominal exam: Present: soft, Non-Tender, normal bowel sounds. Absent: tenderness, distention, guarding, rebound, rigidity - Extremities Exam Extremities exam: Present: normal inspection, full ROM, normal capillary refill. Absent: tenderness, pedal edema, calf tenderness - Back Exam Back exam: Present: normal inspection, full ROM. Absent: tenderness, CVA tenderness (R), CVA tenderness (L), vertebral tenderness - Neurological Exam Neurological exam: Present: alert, oriented X3 - Psychiatric Psychiatric exam: Present: normal affect, normal mood - Skin Skin exam: Present: warm, dry, intact, normal color. Absent: rash, cyanosis, diaphoresis Course - Reevaluation(s) Reevaluation #1: Patient does not have any pedal edema. He has diminished breath sounds bilaterally with some wheezing. Breathing treatment in progress with some minimal improvement he reports. His oxygen saturation is improving. He continues to be tachycardic he was given initial dose of 5 mg Lopressor. He had a critical lab troponin 0.34. His last troponin about a month or 2 were within normal limits. Patient has been given a dose of aspirin here. He had multiple other lab abnormalities including elevated BNP 2400. Chest x-ray does not show signs of pulmonary edema. He does take Lasix 20 mg every other day. His creatinine level appears at baseline as he has underlying chronic kidney disease stage III. His anemia is stable. It appears he also is influenza a positive. It is possible this is the reason for his atrial fibrillation. I spoke to the cardiologists he agrees with aspirin, since the patient is on Eliquis does not recommend starting heparin at this time. Despite the elevation in the BNP, his blood pressure remains stable systolic 130s, recommend a dose of Cardizem and placed on a maintenance. Patient will be admitted for his atrial fibrillation with rapid ventricular response, elevated troponin, CHF exacerbation, influenza infection. Time: 09:40 - Consultations Consultation #1: Spoke to the metal cnc operator Dr. Kraft. With the patient's presentation today there is concern possible ACS versus CHF exacerbation versus the atrial fibrillation possibly from his flu infection. Patient is non-septic appearing. His lactate was normal. At this time it appears he is likely fluid overloaded will give him a dose of 20 mg IV Lasix. To try to bring his heart rate down recommended Cardizem 10 mg bolus with the maintenance drip despite his elevation and BNP 2400. Since patient took Eliquis this morning will not need to heparinize at this moment. Will consult on the floor. Time: 10:26 Consultation #2: Spoke with on-call hospitalist tommy Paige to admit for afib c RVR, elevated trop, influenza A, CHF exacerbation. No further orders at this time. Patient's heart rate has come down to 94 after Cardizem. Time: 11:02 Vital Signs Temperature 98.1 F 02/17/17 08:55 Pulse Rate 121 02/17/17 08:55 Respiratory Rate 20 02/17/17 08:55 Blood Pressure 110/56 02/17/17 08:55 O2 Sat by Pulse Oximetry 92 02/17/17 08:55 Temperature 98.1 F 02/17/17 08:55 Pulse Rate 119 02/17/17 11:13 Respiratory Rate 18 02/17/17 11:13 Blood Pressure 107/68 02/17/17 11:13 O2 Sat by Pulse Oximetry 95 02/17/17 11:13 Oxygen Delivery Oxygen Delivery Nasal Cannula Shortness of Breath/Dyspnea - MDM Narrative Medical decision making narrative: Patient was discussed with my attending physician who agrees with ED management and final disposition. They independently evaluated the patient. Please refer to their attestation to this encounter for additional information. This note was generated by [employer] voice recognition software and as a result grammatical or spelling errors may occur using this program. - Medical Records Medical records reviewed: Yes I reviewed the patient's medical records. - Lab Data Lab results reviewed: Yes I reviewed the patient's lab results. Result diagrams: 02/17/17 09:18 02/17/17 09:18 Lab Results 02/17/17 02/17/17 02/17/17 Range/Units 09:18 09:18 09:18 WBC 8.1 (4.3-11.1) K/mcL RBC 4.01 L (4.19-5.50) M/mcL Hgb 10.9 L (12.9-16.9) g/dL Hct 34.5 L (37.5-50.1) % MCV 86.0 (83.0-100.0) fL MCH 27.2 L (28.0-33.3) pg MCHC 31.6 (31.6-35.5) g/dL RDW 15.7 H (11.5-14.5) % Plt Count 254 (140-400) K/mcL MPV 9.8 (9.4-12.4) fL Immature Gran % 0.4 (0-4) % Seg Neutrophils % 70.2 % Lymphocytes % 12.5 % Monocytes % 16.7 % Eosinophils % 0.1 % Basophils % 0.1 % Neutrophils # 5.7 (1.6-8.9) K/mcL Lymphocytes # 1.0 (0.6-4.6) K/mcL Monocytes # 1.4 H (0.0-1.3) K/mcL Eosinophils # 0.0 (0.0-0.6) K/mcL Basophils # 0.0 (0.0-0.2) K/mcL Immature Plt Fraction 2.2 (1.1-6.1) % Sodium 141 (136-145) mEq/L Potassium 3.7 (3.5-4.5) mEq/L Chloride 106 (98-109) mEq/L Carbon Dioxide 25 (19-29) mEq/L BUN 30 H (8-26) mg/dL Creatinine 1.42 H (0.72-1.25) mg/dL Est GFR ( Amer) 58 L (> 60) Est GFR (Non-Af Amer) 48 L (> 60) BUN/Creatinine Ratio 21 (6-26) Glucose 103 H (70-99) mg/dL Calculated Osmolality 298 (280-300) Lactic Acid (0.5-2.2) mmol/L Calcium 9.0 (8.6-10.8) mg/dL Troponin I 0.34 H* (0-0.03) ng/mL B-Natriuretic Peptide (0-100) pg/mL TSH 0.658 (0.350-4.840) mcIU/mL 02/17/17 02/17/17 02/17/17 Range/Units 09:18 09:18 11:01 WBC (4.3-11.1) K/mcL RBC (4.19-5.50) M/mcL Hgb (12.9-16.9) g/dL Hct (37.5-50.1) % MCV (83.0-100.0) fL MCH (28.0-33.3) pg MCHC (31.6-35.5) g/dL RDW (11.5-14.5) % Plt Count (140-400) K/mcL MPV (9.4-12.4) fL Immature Gran % (0-4) % Seg Neutrophils % % Lymphocytes % % Monocytes % % Eosinophils % % Basophils % % Neutrophils # (1.6-8.9) K/mcL Lymphocytes # (0.6-4.6) K/mcL Monocytes # (0.0-1.3) K/mcL Eosinophils # (0.0-0.6) K/mcL Basophils # (0.0-0.2) K/mcL Immature Plt Fraction (1.1-6.1) % Sodium (136-145) mEq/L Potassium (3.5-4.5) mEq/L Chloride (98-109) mEq/L Carbon Dioxide (19-29) mEq/L BUN (8-26) mg/dL Creatinine (0.72-1.25) mg/dL Est GFR ( Amer) (> 60) Est GFR (Non-Af Amer) (> 60) BUN/Creatinine Ratio (6-26) Glucose (70-99) mg/dL Calculated Osmolality (280-300) Lactic Acid 1.3 1.1 (0.5-2.2) mmol/L Calcium (8.6-10.8) mg/dL Troponin I (0-0.03) ng/mL B-Natriuretic Peptide 2404 H (0-100) pg/mL TSH (0.350-4.840) mcIU/mL - Radiology Data Radiology results reviewed: Yes I reviewed the patient's radiology results. Chest X-Ray 02/17/17 09:00 IMPRESSION: No acute process. D/ / 02/17/2017 09:39:13 Ant Haines MD / karie Interpreting Provider: Ant Haines MD - EKG Data EKG attestation: Yes I reviewed and interpreted this EKG. EKG results narrative: EKG performed 914 atrial fibrillation with rapid ventricular response 1 31 bpm , there is a PVC, QRS 84, normal axis, good R wave progression, no ST elevation, , there are ST depressions in V3 and V4 possibly related to rate. Compared to old EKG performed 12/10/2016 shows sinus bradycardia 50 bpm with a prominent P waves IN interval 156. Critical Care Time Critical Care Time: Yes Total Critical Care Time: 35 Attestation: Critical care time managing patient's elevated troponin 35 minutes. Attestation Statement - Attestation Attestation: Patient was seen with resident physician. I reviewed the history, physical, assessment and plan, and agree with the findings. I also personally evaluated this patient and had [id number] time with this patient. 81-year-old male presents to emergency department with chief complaint shortness of breath and rapid heart rate. Patient is a history of A. fib intermittently he does take an oral blood thinner for this. He has not had chest pain he said but that shortness of breath has gotten worse the last day or so. Denies swelling in his lower extremities. 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 He has gotten more short of breath with exertion over the last 24 -48 hours. He also has a history of respiratory problems including COPD On examination vital signs patient is tachycardic. He is mildly hypoxic with O2 sat 92. Blood pressure stable. ENT is unremarkable. Heart tachycardic regular rhythm. Lungs mild wheezing in the right side. Generalized poor air exchange. No accessory muscle use. Abdomen is soft and nontender. Extremities no swelling. Neurologically intact. ED course EKG shows A. fib with rapid ventricular response. Chest x-ray did not show ulnar edema. Influenza test was positive. Troponin ended up coming back positive as well. We discussed the case with cardiology. Treatments included Lasix and rate control as well as breathing treatments. Patient's Amelie blood thinner and no other blood thinners were started. We discussed case with the hospitalist service to arrange for admission. Critical care time 35 minutes. Agree with resident physician assessment and plan.
[2017-02-17] MEDS ORDERED: Ipratropium/Albuterol Neb 3 ML IH ONE (09:17)
[2017-02-17 09:25] LABS: Basophils % 0.1 %; Eosinophils % 0.1 %; Hematocrit 34.5 % (37.5-50.1); Hemoglobin 10.9 g/dL (12.9-16.9); Immature Granulocytes % 0.4 % (0-4); Immature Platelets 2.2 % (1.1-6.1); Lymphocytes % 12.5 %; Mean Corpuscular HGB Conc 31.6 g/dL (31.6-35.5); Mean Corpuscular Hemoglobin 27.2 pg (28.0-33.3); Mean Platelet Volume 9.8 fL (9.4-12.4); Monocytes # 1.4 K/mcL (0.0-1.3); Monocytes % 16.7 %; Neutrophils # 5.7 K/mcL (1.6-8.9); Platelet Count 254 K/mcL (140-400); Red Blood Count 4.01 M/mcL (4.19-5.50); Red Cell Distribution Width 15.7 % (11.5-14.5); Segmented Neutrophils % 70.2 %
[2017-02-17] MEDS ORDERED: *HR* Metoprolol 5 MG/5 ML VIAL IVP ONE (09:34)
[2017-02-17 09:37] LABS: Potassium 3.7 mEq/L (3.5-4.5)
[2017-02-17] MEDS ORDERED: Aspirin 81 MG TAB.CHEW PO STA (09:50)
[2017-02-17] MEDS ORDERED: Furosemide 20 MG/2 ML VIAL IVP ONE (10:28)
[2017-02-17] MEDS ORDERED: dilTIAZem HCl 100 MG in D5% in Water 50 ML IVC SCH (10:30)
[2017-02-17 11:26] LABS: Thyroid Stimulating Hormone 0.658 mcIU/mL (0.350-4.840)
[2017-02-17] MEDS ORDERED: Ondansetron 4 MG/2 ML VIAL IVP PRN (12:32)
[2017-02-17] MEDS ORDERED: *HR* Morphine 2 MG/ML SYRINGE IVP PRN (12:32)
[2017-02-17] MEDS ORDERED: *HR* HYDROcodone/Acet 5/325 mg TABLET PO PRN (12:32)
[2017-02-17] MEDS ORDERED: Naloxone 0.4 MG/ML INJ IVP PRN (12:32)
[2017-02-17] MEDS ORDERED: Acetaminophen 325 MG TABLET PO PRN (12:32)
[2017-02-17] MEDS ORDERED: Albuterol 2.5 MG/3 ML NEBULIZER IH PRN (12:39)
[2017-02-17 14:25] LABS: INR 1.4; Prothrombin Time 15.4 Seconds (9.4-12.1)
[2017-02-17 14:28] LABS: Activated Partial Thrombo Time 33.6 Seconds (26.0-36.0)
--- NOTE | 2017-02-17 14:53 | Internal Med History&Physical ---
<Malick Heredia - Last Filed: 02/17/17 15:17> Date of Encounter: 02/17/17 Time of Encounter: 11:30 Assessment and Plan (1) Acute exacerbation of CHF (congestive heart failure) Current visit: Yes Status: Acute Acute exacerbation of CHF. Pt. reports SOB/dyspnea since Saturday and which worsened this morning at 3:30 a.m. No pedal edema on exam. Diminished lung sounds and wheezes on auscultation. Pt. is also currently in Afib w/RVR. BNP 2404 on admission. Pt. takes PO lasix 20 mg Q48. Will hold PO and administer 20 mg IVP lasix BID. 1.5L daily fluid restriction. Monitor I&O and daily weight. Supplemental O2 w/titration and SpO2 monitoring. DuoNebs Q4 scheduled. Cardizem drip started for current Afib. Continuous cardiac telemetry. Pt. and f/u labs to be monitored closely. Pt. discussed w/Dr. Gary who agrees w/plan of care. Pt. is at high risk for respiratory distress and further morbidity based on current exacerbation of CHF, current Afib w/RVR, elevated troponin and hx. Inpatient. Qualifiers: Congestive heart failure type: unspecified congestive heart failure type Qualified Code(s): I50.9 - Heart failure, unspecified (2) Influenza A Current visit: Yes Status: Acute Pt. reports SOB since Saturday which worsened this morning at 3:30 a.m. Pt. swabbed for flu which showed positive for influenza A. Tamiflu ordered 30 mg. BID d/t pts. current renal dysfunction. Supplemental O2 w/titration and SpO2 monitoring. (3) Elevated troponin Current visit: Yes Status: Acute Acutely elevated troponin of 0.34 on admission. Pt. denies chest pain but states he had pressure accompanying his SOB this morning. Will continue pts. aspirin therapy, Eliquis, and HTN medications. Administer Lipitor 80 mg now. Cardiology consulted in ED who will see pt. Trend troponins x2. Echocardiogram ordered. (4) Atrial fibrillation with rapid ventricular response Current visit: Yes Status: Acute Acute atrial fibrillation with rapid ventricular response on admission. Continue patient's Eliquis. Continuous cardiac telemetry. Cardizem drip w/ titration. Repeat EKG. (5) Anemia Current visit: Yes Status: Chronic Hx of chronic anemia. Pts. current Hgb is 10.9 and Hct is 34.5 on admission which is at or near pts. recent baseline since November. Will monitor H/H in f/ u labs. Qualifiers: Anemia type: unspecified type Qualified Code(s): D64.9 - Anemia, unspecified (6) GERD (gastroesophageal reflux disease) Current visit: Yes Status: Chronic Hx of chronic GERD. IVP Zofran 4 mg Q8 for N/V. Continue pts. Prilosec. Qualifiers: Esophagitis presence: esophagitis presence not specified Qualified Code(s) : K21.9 - Gastro-esophageal reflux disease without esophagitis (7) CKD (chronic kidney disease) stage 3, GFR 30-59 ml/min Current visit: Yes Status: Chronic Chronic kidney disease, stage 3 w/current GFR of 48 and creatinine of 1.42 on admission. Will avoid IV fluids d/t pts. current acute exacerbation of CHF and order 1.5L daily fluid restriction. Monitor I&O and avoid nephrotoxins. (8) DVT prophylaxis Current visit: Yes Status: Acute Continue pts. Eliquis for DVT prophylaxis. Monitor pt. for signs of bleeding. Internal Medicine - H&P: HPI Chief complaint: SOB/Dyspnea Admitted From: Emergency Dept Plans for Post Hospital Care: Home History of present illness: Mr. Abraham is a 81 year old male with medical hx of chronic atrial fibrillation, CHF, COPD, GERD, and renal disease presents from the ED with chief complaint of shortness of breath and dyspnea which began Saturday and became much worse early this morning at 3:30 a.m. Pt. experienced chest tightness w/his SOB which radiated to his shoulder and lasted approximately 30 minutes. Pt. reports he did a breathing tx this morning w/o much relief. Pt. also reports non-productive cough and dizziness but denies recent illness, fever , chills, nausea, vomiting, palpitations, headache, changes in vision, abdominal pain, diarrhea, constipation, numbness, tingling, lightheadedness, pre -syncope, or syncope. Past Med Surg Social Fam HX - Past Medical History Source: patient, old records reviewed, obtained from family Medical history: atrial fibrillation, CHF, COPD, GERD, renal disease Psychiatric history: no psych history - Past Surgical History Surgical History: no surgical history - Social History Smoking Status: Former smoker Packs per day: 1 PPD - Reports quitting in 1992 Smokeless Tobacco Status: No Alcohol use: none Drug use: none Current living situation: Home, With Family Activity Level: Independent ambulation, Very active Recent Out of Country Travel Within the Last 8 Weeks: No Exposure or Possible Exposure to Illness During Travel: No - Family History Brother Race: Family Member Ethnicity: Non- Living Status: Still Living Hx Family Cardiac Disorders: Yes (Afib) Sister Race: Family Member Ethnicity: Non- Living Status: Still Living Hx Family Cardiac Disorders: Yes (Afib) Father Race: Family Member Ethnicity: Non- Living Status: Age at : 70 Cause of : HD Hx Family Cardiac Disorders: Yes (HD) Mother Race: Family Member Ethnicity: Non- Living Status: Age at : 91 Cause of : Old age Hx Family Medical Disorders: No Internal Medicine - H&P: Meds Acetaminophen [Tylenol] 650 mg PO Q6HR PRN 11/10/16 [History] Aspirin [Lo-Dose Aspirin EC] 81 mg PO DAILY 11/10/16 [History] Ergocalciferol (VITAMIN D2) [Vitamin D2] 50,000 unit PO WE 11/10/16 [History] Montelukast [Singulair] 10 mg PO QAM 11/10/16 [History] Tamsulosin [Flomax] 0.4 mg PO QPM 11/10/16 [History] Apixaban [Eliquis] 2.5 mg PO BID #30 tab 11/12/16 [Rx] Albuterol Neb [Proventil Neb] 2.5 mg IH TID PRN 02/17/17 [History] Albuterol Sulfate [Ventolin Hfa] 2 puff IH Q6H PRN 02/17/17 [History] Budesonide/Formoterol 160/4.5 [Symbicort 160/4.5] 2 puff IH BIDR 02/17/17 [ History] Furosemide [Lasix] 20 mg PO Q48H 02/17/17 [History] Metoprolol Succinate 25 mg PO DAILY 02/17/17 [History] Omeprazole [PriLOSEC] 40 mg PO QAM 02/17/17 [History] 3 Allergy/AdvReac Type Severity Reaction Status Date / Time prednisone Allergy rash/sweats Verified 02/17/17 10:51 All Systems PM: A 10-system review of systems was performed and is negative for pertinent findings except as documented above in the HPI. - Constitutional Constitutional: no chills, no fever(s), no night sweats - EENT Eyes: no change in vision, no discharge, no pain, no photophobia Ears: no ear discharge, no ear pain, no tinnitus Nose, mouth and throat: no dysphagia, no nasal discharge, no neck pain, no sore throat - Breasts Breasts: as per HPI - Cardiovascular Cardiovascular ROS IM: as per HPI, chest pain, dyspnea, dyspnea on exertion, irregular heart rhythm - Respiratory Respiratory: as per HPI, cough, dyspnea, dyspnea on exertion, no wheezing, no excessive phlegm production - Gastrointestinal Gastrointestinal: no abdominal pain, no diarrhea, no hematemesis, no hematochezia, no melena, no nausea, no vomiting - Genitourinary Genitourinary ROS male: as per HPI - Musculoskeletal Musculoskeletal ROS IM: no numbness, no tingling - Integumentary Integumentary IM: no rash, no unusual bruising - Neurological Neurological ROS: as per HPI, dizziness, no confusion, no convulsions, no focal weakness, no numbness, no tingling, no tremor(s) - Psychiatric Psychiatric: as per HPI - Endocrine Endocrine IM: as per HPI - Hematologic/Lymphatic Hematologic/Lymphatic: no easy bruising - Allergic/Immunologic Allergic/Immunologic: as per HPI - Constitutional Vitals: Temp Pulse Resp BP Pulse Ox 98.2 F 111 16 108/59 2 02/17/17 12:19 02/17/17 12:19 02/17/17 12:19 02/17/17 12:19 02/17/17 12:19 General appearance: Present: cooperative, A&O X 3, pleasant, no acute distress, answers questions appropriately - Head Head exam: Present: atraumatic, normal inspection, normocephalic - Eye Eye exam: Present: PERRL, conjuntiva pink, sclera anicteric Pupils: Present: PERRL - ENT ENT exam: Present: normal exam, normal external ear exam - Neck Neck exam general surgery: Present: normal inspection, supple, trachea midline. Absent: lymphadenopathy - Respiratory Respiratory exam: Present: accessory muscle use, decreased breath sounds. Absent: rales, rhonchi, wheezes - Cardiovascular Cardiovascular exam: Present: irregular rhythm - GI/Abdominal GI/Abdominal exam: Present: normal bowel sounds, soft, no peritoneal signs. Absent: distended, tenderness - Rectal Rectal exam: Present: deferred - Additional comments: exam deferred. - Extremities Exam Extremities exam: Present: warm, radial pulses palpable and symmetrical. Absent : calf tenderness, cyanotic, pedal edema - Back Exam Back exam: Present: normal inspection - Neurological Exam Neurological exam: Present: CN II-XII intact, oriented X3, no focal deficits. Absent: pronater drift, facial droop, speech deficit - Psychiatric Psychiatric exam: Present: normal affect, normal mood - Skin Skin exam: Present: dry, intact Internal Med - H&P Results - Labs CBC & Chem 7: 02/17/17 09:18 02/17/17 09:18 - EKG Data Prior EKG available for review: yes When compared to previous EKG: there are significant changes EKG comments: 02/17/17 14:57 EKG dated 12/10/16 shows sinus bradycardia. EKG dated 02/17/17 shows atrial fibrillation with rapid ventricular response with aberrant conduction or ventricular premature complexes and moderate ST depression. - Diagnostic Studies Chest x-ray Additional comments: Impressions Chest X-Ray 02/17/17 09:00 IMPRESSION: No acute process. D/ / 02/17/2017 09:39:13 Ant Haines MD / [facility] Interpreting Provider: Ant Haines MD <Yves Gary T - Last Filed: 02/17/17 15:29> Date of Encounter: 02/17/17 Internal Medicine - H&P: HPI History of present illness: Mr. Abraham is a 81 year old male All Systems PM: A 10-system review of systems was performed and is negative for pertinent findings except as documented above in the HPI. - Constitutional Vitals: Temp Pulse Resp BP Pulse Ox 98.2 F 111 16 108/59 2 02/17/17 12:19 02/17/17 12:19 02/17/17 12:19 02/17/17 12:19 02/17/17 12:19 Internal Med - H&P Results - Labs CBC & Chem 7: 02/17/17 09:18 02/17/17 09:18 - Attending Attestation Seen and examined independently and discussed with patient at the bedside Plan of care discussed with LETICIA Heredia, whose documentation reflect our plan of care. 81 M with Influ A URI, CHFE, Afib with RVR, Elevated trops. Patient denies any chest pain, but did experience some chest tightness VSS, NAD at time of review, Chest is CTAB without wheezing or rhonchi, HS S1, S2 , Fib, Murmur, Abdomen is soft and not tender, no pedal edema Labs and Imaging reviewed. Agree with lasix/tamiflu/Cycle trops, obtain ECHO. Cardio eval Rest of plan isl as detailed in documentation as above
[2017-02-17] MEDS: Furosemide 20 MG/2 ML VIAL IVP SCH (16:27)
[2017-02-17] MEDS: Ipratropium/Albuterol Neb 3 ML IH SCH ×3 (16:39→23:48)
[2017-02-17] MEDS: APIXABAN 5 MG TABLET PO SCH (20:41)
[2017-02-17] MEDS: dilTIAZem HCl 100 MG in D5% in Water 50 ML IVC SCH (20:49)
[2017-02-17] MEDS: Oseltamivir Phosphate 30 MG CAPSULE PO SCH (21:32)
[2017-02-18] MEDS: dilTIAZem HCl 100 MG in D5% in Water 50 ML IVC SCH ×2 (00:29→12:03)
[2017-02-18] MEDS: Ipratropium/Albuterol Neb 3 ML IH SCH ×3 (03:36→11:01)
[2017-02-18 04:15] LABS: Hematocrit 32.2 % (37.5-50.1); Hemoglobin 10.2 g/dL (12.9-16.9); Immature Granulocytes % 0.3 % (0-4); Lymphocytes # 0.6 K/mcL (0.6-4.6); Lymphocytes % 10.2 %; Mean Corpuscular HGB Conc 31.7 g/dL (31.6-35.5); Mean Corpuscular Hemoglobin 26.8 pg (28.0-33.3); Mean Corpuscular Volume 84.5 fL (83.0-100.0); Mean Platelet Volume 10.5 fL (9.4-12.4); Monocytes # 0.9 K/mcL (0.0-1.3); Monocytes % 14.1 %; Neutrophils # 4.7 K/mcL (1.6-8.9); Platelet Count 245 K/mcL (140-400); Red Blood Count 3.81 M/mcL (4.19-5.50); Red Cell Distribution Width 15.7 % (11.5-14.5); Segmented Neutrophils % 75.4 %
[2017-02-18 04:29] LABS: Alanine Aminotransferase 21 Units/L (0-55); Albumin 2.7 g/dL (3.5-5.0); Albumin/Globulin Ratio 0.7 (1.1-2.2); Alkaline Phosphatase 73 Units/L (38-126); Aspartate Amino Transferase 23 Units/L (5-34); BUN/Creatinine Ratio 22 (6-26); Bilirubin,Total 0.4 mg/dL (0.2-1.2); Blood Urea Nitrogen 29 mg/dL (8-26); Calcium 8.4 mg/dL (8.6-10.8); Carbon Dioxide 24 mEq/L (19-29); Chloride 103 mEq/L (98-109); Chol/HDL Ratio 4.9 (0-4.9); Cholesterol 142 mg/dL (< 200); Globulin 3.8 g/dL (2.4-3.5); Glucose 115 mg/dL (70-99); HDL Cholesterol 29 mg/dL (40-59); LDL Cholesterol,Calculated 102 mg/dL (0-99); Magnesium 1.7 mg/dL (1.6-2.6); Osmolality,Calculated 297 (280-300); Potassium 3.2 mEq/L (3.5-4.5); Sodium 140 mEq/L (136-145); Total Protein 6.5 g/dL (6.0-8.3); Triglycerides 56 mg/dL (< 150); eGFR For African Americans > 60 (> 60); eGFR For Non-African Americans 53 (> 60)
[2017-02-18] MEDS: Aspirin Enteric Coated 81 MG Tablet PO SCH (08:45)
[2017-02-18] MEDS: Metoprolol XL (24 HR) Succ 50 MG TAB.ER.24H PO SCH (08:45)
[2017-02-18] MEDS: Furosemide 20 MG/2 ML VIAL IVP SCH (08:45)
[2017-02-18] MEDS: Oseltamivir Phosphate 30 MG CAPSULE PO SCH ×2 (08:46→20:35)
[2017-02-18] MEDS: APIXABAN 5 MG TABLET PO SCH ×2 (08:46→20:34)
[2017-02-18] MEDS ORDERED: Metoprolol XL (24 HR) Succ 25 MG TAB.ER.24H PO SCH (09:00)
--- NOTE | 2017-02-18 09:43 | Internal Med Progress Note ---
Date of Encounter: 02/18/17 Time of Encounter: 09:00 - Assessment and plan (1) Atrial fibrillation with rapid ventricular response Current Visit: Yes Status: Acute Assessment and plan: HR mostly controlled Increase toprol to 50mg po daily and wean off cardizem drip Continue Apixaban (2) Urinary retention Current Visit: Yes Status: Acute Assessment and plan: Patient has known history of benign prostatic hyperplasia and is on Flomax. Spouse reports previous incidents in April dysuria. We will keep the Jane catheter in for now, we will attempt a voiding after patient has become more stable. Consider urology evaluation, patient is unable to void after catheter removal. Continue Flomax. (3) Acute exacerbation of CHF (congestive heart failure) Current Visit: Yes Status: Acute Assessment and plan: Patient with known CHF with preserved ejection fraction. Echocardiogram noted from August 2015. Continue Lasix IV twice a day. Continue 1.5 L daily fluid restriction. Monitor intake and output. Today patient is -4.3 L. Monitor daily weight. Qualifiers: Congestive heart failure type: unspecified congestive heart failure type Qualified Code(s): I50.9 - Heart failure, unspecified (4) Elevated troponin Current Visit: Yes Status: Acute Assessment and plan: Possibly secondary to demand ischemia from atrial fibrillation with rapid ventricular response. Troponin is down trending. Follow echocardiogram. Cardiology was consulted by the ED, awaiting review. Patient denied and still denies chest pain. Continue ASA, Eliquis, Lipitor (5) COPD (chronic obstructive pulmonary disease) Current Visit: Yes Status: Chronic Assessment and plan: Not in exacerbation at this time Qualifiers: COPD type: emphysema Emphysema type: unspecified Qualified Code(s): J43.9 - Emphysema, unspecified (6) CKD (chronic kidney disease) Current Visit: Yes Status: Chronic Assessment and plan: Renal function is stable and at baseline, continue to monitor Qualifiers: Chronic kidney disease stage: stage 3 (moderate) Qualified Code(s): N18.3 - Chronic kidney disease, stage 3 (moderate) (7) Influenza A Current Visit: Yes Status: Acute Assessment and plan: Continue Tamilfu-Day 2/5 - Subjective Interval history: 81-year-old male admitted being managed for acute exacerbation of CHF, influenza A infection, atrial fibrillation with rapid ventricular response. Patient is seen and evaluated at the bedside with his spouse. Overnight, patient developed acute urinary retention, necessitating placement of a urinary catheter with 900 mL of urine output. His heart rate has remained uncontrolled, he is otherwise denying any new complaints. Troponin peaked at 0.34, troponin is 0.7 this morning. He is awaiting cardiology review, and echocardiogram. - Constitutional Vitals: Temp Pulse Resp BP Pulse Ox 97.7 F 72 16 102/49 96 02/18/17 07:42 02/18/17 07:42 02/18/17 07:52 02/18/17 07:42 02/18/17 07:52 General appearance: Present: cooperative, A&O X 3, pleasant, no acute distress, answers questions appropriately - Head Head exam: Present: atraumatic, normocephalic - Eye Eye exam: Present: PERRL, conjuntiva pink, sclera anicteric Pupils: Present: PERRL - Neck Neck exam general surgery: Present: supple, trachea midline. Absent: lymphadenopathy - Respiratory Respiratory exam: Present: CTAB. Absent: accessory muscle use, rales, rhonchi, wheezes - Cardiovascular Cardiovascular exam: Present: irregular rhythm, +S1, +S2. Absent: diastolic murmur, gallop, rubs, systolic murmur - GI/Abdominal GI/Abdominal exam: Present: normal bowel sounds, soft, no peritoneal signs. Absent: distended, tenderness - Rectal Additional comments: Jane catheter with clear urine. - Extremities Exam Extremities exam: Present: warm, radial pulses palpable and symmetrical. Absent : calf tenderness, cyanotic, pedal edema - Neurological Exam Neurological exam: Present: alert, CN II-XII intact, oriented X3, no focal deficits. Absent: pronater drift, facial droop, speech deficit - Skin Skin exam: Present: dry, intact Internal Medicine: Result - Labs CBC & Chem 7: 02/18/17 03:23 02/18/17 03:23 Labs: Short CBC 02/18/17 Range/Units 03:23 WBC 6.3 (4.3-11.1) K/mcL Hgb 10.2 L (12.9-16.9) g/dL Hct 32.2 L (37.5-50.1) % Plt Count 245 (140-400) K/mcL Neutrophils # 4.7 (1.6-8.9) K/mcL BMP 02/18/17 03:23 Sodium 140 Potassium 3.2 L Chloride 103 Carbon Dioxide 24 BUN 29 H Creatinine 1.31 H Glucose 115 H Calcium 8.4 L Cardiac Enzymes 02/17/17 12 Range/Units 15:03 21:17 Troponin I 0.34 H* 0.27 H* (0-0.03) ng/mL Liver Function 02/18/17 Range/Units 03:23 Total Bilirubin 0.4 (0.2-1.2) mg/dL AST 23 (5-34) Units/L ALT 21 (0-55) Units/L Alkaline Phosphatase 73 (38-126) Units/L Albumin 2.7 L (3.5-5.0) g/dL - ABG Interpretation ABG results: PT/INR, D-dimer PT 15.4 Seconds (9.4-12.1) H 02/17/17 13:17 Consult Discharge Plan - Plan Referrals: Jadiel Almodovar MD [Primary Care Provider] -
--- NOTE | 2017-02-18 10:43 | Electrocardiograph Report ---
[place] [id number] Test Date: 2017-02-17 Pat Name: Jaspreet Abraham Department: 103 Room: 2A24 Gender: M Grazing Aide: : 1935 Requested By: Chano Rios Order Number: [id number] Reading MD: Narinder Guaman MD Measurements Intervals Inez Rate: 131 P: MN: 0 QRS: -4 QRSD: 84 T: 2 QT: 300 QTc: 377 Interpretive Statements ATRIAL FIBRILLATION WITH RAPID VENTRICULAR RESPONSE WITH ABERRANT CONDUCTION OR VENTRICULAR PREMATURE COMPLEXES Electronically Signed On 02-18-2017 10:41:51 EST by Narinder Guaman MD
[2017-02-18] MEDS ORDERED: Albuterol 2.5 MG/3 ML NEBULIZER IH PRN (11:13)
[2017-02-18] MEDS ORDERED: *HR* HYDROcodone/Acet 5/325 mg TABLET PO PRN (11:14)
--- NOTE | 2017-02-18 12:30 | Cardiology Consult Note ---
<Winsome Pearl - Last Filed: 02/18/17 12:24> Date of Encounter: 02/18/17 Time of Encounter: 09:30 Assessment and Plan (1) Influenza A Current Visit: Yes Status: Acute Per cardiology: -Influenza A positive. -On tamiflu. -Management per primary service. (2) Acute exacerbation of CHF (congestive heart failure) Current Visit: Yes Status: Acute Per cardiology: -Known history of CHF, presumes diastolic. -BNP on admission 2404. -Chest x-ray with no acute process. -Baseline weight 66kg, weight today 66. -Euvolemic on exam. -On lasix 20mg IV BID. -Strict i/os, fluid restriction, daily weights. -Will switch lasix to po. Qualifiers: Congestive heart failure type: diastolic Qualified Code(s): I50.33 - Acute on chronic diastolic (congestive) heart failure (3) Elevated troponin Current Visit: Yes Status: Acute Per cardiology: -Troponins 0.34, 0.34, 0.27. -Troponins flat and adynamic in the setting of CHF, a.fib RVR, influenza A. -Denies chest pain. -ECG with no acute ishcemic changes. -TTE with LVEF 55%, no segmental wall motion abnormalities. -On asa, beta mariel. -Do not suspect NSTEMI, suspect demand ischemia related to above. No cardiac rehab warranted. (4) Atrial fibrillation Current Visit: No Status: Chronic Per cardiology: -Known history of PAF. -A.fib RVR on admission. -Currently on cardizem drip at 10mg/hour. -Average HR previous 12 hours noted to be 106, atrial fibrillation. -On eliquis for anticoagulation. -Will continue to monitor. Qualifiers: Atrial fibrillation type: paroxysmal Qualified Code(s): I48.0 - Paroxysmal atrial fibrillation (5) Aortic stenosis Current Visit: No Status: Chronic Per cardiology: -Known aortic stenosis. -TTE 08/2016 with moderate-severe . -TTE this admission with moderate with peak velocity 3.17m/s, mean gradiant 22mmHG. -Will continue to monitor. Qualifiers: Cardiac valve disease etiology: etiology unspecified Qualified Code(s): I35.0 - Nonrheumatic aortic (valve) stenosis Discussion w patient/family: The assessment and plan as outlined above was discussed with the patient and/or family members who expressed understanding and agreement. All questions were answered. Thank you for involving us in the care of your patient. Please call with any questions. Discussed and reviewed with . History of Present Illness Consult date: 02/17/17 Requesting physician: Chano Rios Consult reason: a.fib, CHF, elevated troponin Chief complaint: shortness of breath History of present illness: Mr. Abraham is a 81 year old male with a relevant past medical history of COPD , GERD, PAF, moderate , chronic diastolic CHF. Patient presented to [facility] with complaints of difficulty in breathing. Patient reports his had been sick also. Patient denies chest pain, however states had some bilateral chest pressure when coughing. Reports increased shortness of breath. Denies palpitations or fluttering. Patient denies increased edema, denies weight gain. Past Med Surg Social Fam HX - Past Medical History Attestation: Yes The following information was validated with the patient. Source: patient, old records reviewed Medical history: atrial fibrillation, CHF, COPD, GERD, renal disease Psychiatric history: no psych history - Past Surgical History Surgical History: no surgical history - Social History Smoking Status: Former smoker Packs per day: 1 PPD - Reports quitting in 1992 Smokeless Tobacco Status: No Alcohol use: none Drug use: none - Family History Brother Race: Family Member Ethnicity: Non- Living Status: Still Living Hx Family Cardiac Disorders: Yes (Afib) Sister Race: Family Member Ethnicity: Non- Living Status: Still Living Hx Family Cardiac Disorders: Yes (Afib) Father Race: Family Member Ethnicity: Non- Living Status: Age at : 70 Cause of : HD Hx Family Cardiac Disorders: Yes (HD) Mother Race: Family Member Ethnicity: Non- Living Status: Age at : 91 Cause of : Old age Hx Family Medical Disorders: No Medications and Allergies Acetaminophen [Tylenol] 650 mg PO Q6HR PRN 11/10/16 [History] Aspirin [Lo-Dose Aspirin EC] 81 mg PO DAILY 11/10/16 [History] Ergocalciferol (VITAMIN D2) [Vitamin D2] 50,000 unit PO WE 11/10/16 [History] Montelukast [Singulair] 10 mg PO QAM 11/10/16 [History] Tamsulosin [Flomax] 0.4 mg PO QPM 11/10/16 [History] Apixaban [Eliquis] 2.5 mg PO BID #30 tab 11/12/16 [Rx] Albuterol Neb [Proventil Neb] 2.5 mg IH TID PRN 02/17/17 [History] Albuterol Sulfate [Ventolin Hfa] 2 puff IH Q6H PRN 02/17/17 [History] Budesonide/Formoterol 160/4.5 [Symbicort 160/4.5] 2 puff IH BIDR 02/17/17 [ History] Furosemide [Lasix] 20 mg PO Q48H 02/17/17 [History] Metoprolol Succinate 25 mg PO DAILY 02/17/17 [History] Omeprazole [PriLOSEC] 40 mg PO QAM 02/17/17 [History] 3 Allergy/AdvReac Type Severity Reaction Status Date / Time prednisone Allergy rash/sweats Verified 02/17/17 10:51 All Systems Review: A 10-system review of systems was performed and is negative for pertinent findings except as documented above in the HPI. - Cardiovascular Cardiovascular: as per HPI, dyspnea at rest, dyspnea on exertion - Respiratory Respiratory: cough, dyspnea Physical Examination Vital Signs, Last 4 Hours Temp Pulse Resp BP Pulse Ox 02/18/17 12:03 98.1 F 91 17 115/47 90 02/18/17 11:01 16 90 General: Conversant, No Apparent Distress HEENT: Atraumatic, Normocephaly, Mucus Membranes Moist Neck: No JVD, Normal carotid pulses Cardiac: Other (Irregularly irregular. Systolic mumur noted. ) Lungs: Other (Lung sounds diminished to bilateral bases. ) Neuro: Alert and responsive, No focal deficits noted Abdomen: Soft, Non-Tender Skin: No rashes noted on visualized skin Musculoskeletal: No Chest Wall Tenderness Extremities: No Clubbing, No Cyanosis, No Edema, Normal Pulses Results 02/18/17 03:23 02/18/17 03:23 Lab Results Impressions Chest X-Ray 02/17/17 09:00 IMPRESSION: No acute process. D/ / 02/17/2017 09:39:13 Ant Haines MD / karie Interpreting Provider: Ant Haines MD Echocardiogram 02/17/17 12:47 Impressions: LVEF 55%. Normal LV chamber size and function. Mild concentric left ventricular hypertrophy. Indeterminate diastolic function. Normal right ventricular structure and function. Severely dilated left atrium. Severely calcified aortic valve leaflets. The number of leaflets cannot be determined. Mild aortic regurgitation. Moderate aortic stenosis by Doppler. Peak velocity 3.17 m/s. Mean gradient 22 mmHg. Mild-moderate mitral regurgitation. Mild tricuspid regurgitation. Mild pulmonary hypertension. Left Ventricular Wall Motion: Rest Echo Findings All wall segments showed normal motion. Findings: Study Quality * Technically adequate exam. ECG Findings * Atrial fibrillation. Left Ventricle * LVEF 55%. * Normal LV chamber size and function. * Mild concentric left ventricular hypertrophy. * Indeterminate diastolic function. Right Ventricle * Normal right ventricular structure and function. Left Atrium * Severely dilated left atrium. Right Atrium * Moderately dilated right atrium. Aortic Valve * Severely calcified aortic valve leaflets. The number of leaflets cannot be determined. * Mild aortic regurgitation. * Moderate aortic stenosis by Doppler. Peak velocity 3.17 m/s. Mean gradient 22 mmHg. Mitral Valve * Mildly thickened mitral valve leaflets. * Mild mitral annular calcification * Mild-moderate mitral regurgitation. * No mitral stenosis. Tricuspid Valve * Normal tricuspid valve structure. * Mild tricuspid regurgitation. * Mild pulmonary hypertension. Pulmonic Valve * Normal pulmonic valve structure and function. * No pulmonic regurgitation. Aorta * Normally sized aortic root. Pericardium * The pericardium appears normal. IVC * The IVC is not well evaluated. Pulmonary Artery * Normal visualized portions of the main pulmonary artery. Active Medications Acetaminophen (Tylenol) 650 mg PO Q6HR PRN PRN Reason: Mild Pain (1-3) Stop: 08/19/17 12:33 Hydrocodone Bitart/Acetaminophen (Camino 5-325 Mg) 1 tab PO Q4HR PRN PRN Reason: Moderate to Severe Pain (4-10) Stop: 08/19/17 12:33 Albuterol Sulfate (Proventil Neb) 2.5 mg IH Q2HR PRN; Protocol PRN Reason: Shortness Of Breath Stop: 08/19/17 12:40 Apixaban (Eliquis) 2.5 mg PO BID EDUIN Stop: 08/19/17 21:01 Last Admin: 02/18/17 08:46 Dose: 2.5 mg Aspirin (Aspirin Ec) 81 mg PO DAILY [facility] Stop: 08/20/17 09:01 Last Admin: 02/18/17 08:45 Dose: 81 mg Budesonide/Formoterol Fumarate (Symbicort) 2 puff IH BIDR EDUIN PRN Reason: Protocol Stop: 08/20/17 22:01 Furosemide (Lasix) 20 mg IVP BIDDIURETIC [facility] Stop: 08/19/17 17:01 Last Admin: 02/18/17 08:45 Dose: 20 mg Diltiazem HCl 100 mg/ Dextrose 50 mls @ 2.5 mls/hr IVC .Q20H EDUIN; 5 MG/HR PRN Reason: Protocol Stop: 08/19/17 10:31 Last Admin: 02/18/17 12:03 Dose: 10 mg/hr, 5 mls/hr Metoprolol Succinate (Toprol Xl) 50 mg PO DAILY [facility] Stop: 08/20/17 09:01 Last Admin: 02/18/17 08:45 Dose: 50 mg Montelukast Sodium (Singulair) 10 mg PO QAM [facility] Stop: 08/20/17 09:01 Last Admin: 02/18/17 08:45 Dose: 10 mg Naloxone HCl (Narcan) 0.4 mg IVP Q2MIN PRN PRN Reason: Opioid Reversal Stop: 08/19/17 12:33 Omeprazole (Prilosec) 40 mg PO QAM@0630 [facility] Stop: 08/20/17 06:31 Last Admin: 02/18/17 05:28 Dose: 40 mg Ondansetron HCl (Zofran) 4 mg IVP Q8HR PRN PRN Reason: Nausea And Vomiting Stop: 08/19/17 12:33 Oseltamivir Phosphate (Tamiflu) 30 mg PO BID [facility] Stop: 02/22/17 09:01 Last Admin: 02/18/17 08:46 Dose: 30 mg Tamsulosin HCl (Flomax) 0.4 mg PO QPM EDUIN PRN Reason: Protocol Stop: 08/19/17 18:01 Last Admin: 02/17/17 16:26 Dose: 0.4 mg Laboratory Tests 02/17/17 02/17/17 02/17/17 09:18 09:18 09:18 Hgb Potassium Creatinine Magnesium Troponin I 0.34 H* B-Natriuretic Peptide 2404 H TSH 0.658 02/17/17 02/17/17 02/18/17 15:03 21:17 03:23 Hgb 10.2 L Potassium Creatinine Magnesium Troponin I 0.34 H* 0.27 H* B-Natriuretic Peptide TSH 02/18/17 03:23 Hgb Potassium 3.2 L Creatinine 1.31 H Magnesium 1.7 Troponin I B-Natriuretic Peptide TSH - Imaging and Cardiology Chest Xray: report reviewed Echo: report reviewed - EKG Interpretation EKG results cardiology: personally reviewed (ECG with atrial fibrillation with RVR, HR 131.), other (Telemetry reviewed with average HR previous 12 hours noted to be 106, atrial fibrillation. PVCs and couplets noted.) Consult Discharge Plan - Plan Referrals: Jadiel Almodovar MD [Primary Care Provider] - 02/27/17 11:15 am <Roseanne Askew - Last Filed: 02/18/17 14:34> Date of Encounter: 02/18/17 - Attending Attestation I have personally performed a face to face evaluation on this patient. I have reviewed and agree with the care plan, history and exam by SECURITY COMPLIANCE ENGINEER: Mr. Abraham presents with complaints of difficulty breathing. He was found to be positive for Influenza A. Incidentally discovered were elevated troponins in the setting of CKD and Flu suspicious for demand ischemia. Echo was performed demonstrating no new wall motion abnormalities and normal LVEF. We did discuss consideration for LHC. However, patient is interested in recovering from Flu and expressed interest in going home. He declines invasive workup at this time. Recommend outpatient follow up. Continue asa, statin BB. He is on low dose Eliquis for history of AF. Recommend stopping cardizem and continuing Toprol which can be uptitrated. Assessment and Plan Discussion w patient/family: The assessment and plan as outlined above was discussed with the patient and/or family members who expressed understanding and agreement. All questions were answered. Thank you for involving us in the care of your patient. Please call with any questions. History of Present Illness History of present illness: Mr. Abraham is a 81 year old male All Systems Review: A 10-system review of systems was performed and is negative for pertinent findings except as documented above in the HPI. Physical Examination Vital Signs, Last 4 Hours Temp Pulse Resp BP Pulse Ox 02/18/17 12:03 98.1 F 91 17 115/47 90 02/18/17 11:01 16 90 Results 02/18/17 03:23 02/18/17 03:23 Lab Results 02/17/17 02/17/17 02/18/17 15:03 21:17 03:23 WBC 6.3 Hgb 10.2 L Hct 32.2 L Plt Count 245 Sodium Potassium Chloride Carbon Dioxide BUN Creatinine Glucose Calcium Magnesium Total Bilirubin AST ALT Alkaline Phosphatase Troponin I 0.34 H* 0.27 H* 02/18/17 03:23 WBC Hgb Hct Plt Count Sodium 140 Potassium 3.2 L Chloride 103 Carbon Dioxide 24 BUN 29 H Creatinine 1.31 H Glucose 115 H Calcium 8.4 L Magnesium 1.7 Total Bilirubin 0.4 AST 23 ALT 21 Alkaline Phosphatase 73 Troponin I
[2017-02-18] MEDS ORDERED: Furosemide 20 MG TABLET PO SCH (17:00)
[2017-02-18] MEDS: Budesonide/Formoterol 160/4.5 MDI IH SCH (20:41)
[2017-02-19] MEDS: dilTIAZem HCl 100 MG in D5% in Water 50 ML IVC SCH (00:03)
[2017-02-19 05:05] LABS: Basophils % 0.1 %; Eosinophils % 0.1 %; Hematocrit 32.9 % (37.5-50.1); Hemoglobin 10.4 g/dL (12.9-16.9); Immature Granulocytes % 0.4 % (0-4); Lymphocytes # 1.8 K/mcL (0.6-4.6); Lymphocytes % 23.9 %; Mean Corpuscular HGB Conc 31.6 g/dL (31.6-35.5); Mean Corpuscular Hemoglobin 26.7 pg (28.0-33.3); Mean Corpuscular Volume 84.4 fL (83.0-100.0); Mean Platelet Volume 10.6 fL (9.4-12.4); Monocytes # 1.1 K/mcL (0.0-1.3); Monocytes % 15.3 %; Neutrophils # 4.4 K/mcL (1.6-8.9); Platelet Count 268 K/mcL (140-400); Red Cell Distribution Width 15.6 % (11.5-14.5); Segmented Neutrophils % 60.2 %
[2017-02-19 05:08] LABS: Alanine Aminotransferase 15 Units/L (0-55); Albumin 2.5 g/dL (3.5-5.0); Albumin/Globulin Ratio 0.7 (1.1-2.2); Alkaline Phosphatase 66 Units/L (38-126); Aspartate Amino Transferase 19 Units/L (5-34); BUN/Creatinine Ratio 19 (6-26); Bilirubin,Total 0.5 mg/dL (0.2-1.2); Blood Urea Nitrogen 26 mg/dL (8-26); Calcium 8.3 mg/dL (8.6-10.8); Carbon Dioxide 25 mEq/L (19-29); Chloride 103 mEq/L (98-109); Globulin 3.6 g/dL (2.4-3.5); Glucose 98 mg/dL (70-99); Osmolality,Calculated 289 (280-300); Potassium 3.8 mEq/L (3.5-4.5); Sodium 137 mEq/L (136-145); Total Protein 6.1 g/dL (6.0-8.3); eGFR For African Americans > 60 (> 60); eGFR For Non-African Americans 51 (> 60)
[2017-02-19] MEDS: Furosemide 40 MG TABLET PO SCH (09:22)
[2017-02-19] MEDS: Aspirin Enteric Coated 81 MG Tablet PO SCH (09:22)
[2017-02-19] MEDS: APIXABAN 5 MG TABLET PO SCH ×2 (09:22→21:13)
[2017-02-19] MEDS: Oseltamivir Phosphate 30 MG CAPSULE PO SCH ×2 (09:23→21:13)
[2017-02-19] MEDS: Metoprolol XL (24 HR) Succ 50 MG TAB.ER.24H PO SCH (09:23)
[2017-02-19] MEDS: Budesonide/Formoterol 160/4.5 MDI IH SCH ×2 (10:10→22:32)
--- NOTE | 2017-02-19 13:15 | Internal Med Progress Note ---
<Dontrell So - Last Filed: 02/19/17 13:12> Date of Encounter: 02/19/17 Time of Encounter: 13:12 - Assessment and plan (1) Acute respiratory failure with hypoxia Current Visit: Yes Status: Acute Assessment and plan: 2nd to acute CHF exacerbation in setting of influenza A patient has hx of COPD as well improving with supplemental oxygen, nebulizer treatments, lasix Plan: Wean off oxygen. Continue nebulizer treatments. Continue Lasix continue symbicort (2) Influenza A Current Visit: Yes Status: Acute Assessment and plan: Continue Tamilfu-Day 05/06 Patient denies body aches, fatigue, chills. Afebrile (3) Acute exacerbation of CHF (congestive heart failure) Current Visit: Yes Status: Acute Assessment and plan: Secondary to influenza. Agent has bibasilar crackles Report shortness of breath improved compared to admission. Echocardiogram shows moderate aortic stenosis which is stable. Daily weight has decreased by 2 kg since admission. Continue negative fluid balance. Continue Lasix 40 daily. Fluid restricted diet of 2000 mL. Salt restricted diet. Qualifiers: Congestive heart failure type: diastolic Qualified Code(s): I50.33 - Acute on chronic diastolic (congestive) heart failure (4) Atrial fibrillation Current Visit: Yes Status: Chronic Assessment and plan: Patient on Cardizem drip for atrial fibrillation with RVR. Anticoagulated on Eliquis Plan: Wean off Cardizem drip. Continue Toprol-XL 50 mg daily. If patient becomes tachycardic with an increase this dosage. Qualifiers: Atrial fibrillation type: paroxysmal Qualified Code(s): I48.0 - Paroxysmal atrial fibrillation (5) Aortic stenosis Current Visit: Yes Status: Chronic Assessment and plan: Patient has known aortic stenosis. According to echocardiogram is moderate to severe. Currently is followed by cardiology outpatient. Qualifiers: Cardiac valve disease etiology: etiology unspecified Qualified Code(s): I35.0 - Nonrheumatic aortic (valve) stenosis - Subjective Interval history: Reports shortness of breath but states it has improved. Denies chest pain, palpitations, abdominal pain, nausea, vomiting. Denies fatigue, chills, muscle aches. - Constitutional Vitals: Temp Pulse Resp BP Pulse Ox 97.6 F 56 18 97/49 93 02/19/17 11:44 02/19/17 11:44 02/19/17 11:44 02/19/17 11:44 02/19/17 11:44 General appearance: Present: cooperative, A&O X 3, pleasant, no acute distress, answers questions appropriately - Other Additional findings: General: Pleasant without distress Heart: Irregularly irregular Lungs: Bibasilar crackles otherwise clear Abdomen: Soft nontender, nondistended positive bowel sounds Skin: warm and dry Extremities: Absent pedal edema, Neuro: Alert oriented 3 Vascular: Pedal and radial pulses 2 out of 4 Internal Medicine: Result - Labs CBC & Chem 7: 02/19/17 04:28 02/19/17 04:28 Labs: Short CBC 02/19/17 Range/Units 04:28 WBC 7.3 (4.3-11.1) K/mcL Hgb 10.4 L (12.9-16.9) g/dL Hct 32.9 L (37.5-50.1) % Plt Count 268 (140-400) K/mcL Neutrophils # 4.4 (1.6-8.9) K/mcL BMP 02/19/17 04:28 Sodium 137 Potassium 3.8 Chloride 103 Carbon Dioxide 25 BUN 26 Creatinine 1.35 H Glucose 98 Calcium 8.3 L Liver Function 02/19/17 Range/Units 04:28 Total Bilirubin 0.5 (0.2-1.2) mg/dL AST 19 (5-34) Units/L ALT 15 (0-55) Units/L Alkaline Phosphatase 66 (38-126) Units/L Albumin 2.5 L (3.5-5.0) g/dL - ABG Interpretation ABG results: PT/INR, D-dimer PT 15.4 Seconds (9.4-12.1) H 02/17/17 13:17 Consult Discharge Plan - Plan Referrals: Jadiel Almodovar MD [Primary Care Provider] - 02/27/17 11:15 am <Pawel Mendez - Last Filed: 02/19/17 15:21> Date of Encounter: 02/19/17 - Constitutional Vitals: Temp Pulse Resp BP Pulse Ox 97.6 F 56 18 97/49 93 02/19/17 11:44 02/19/17 11:44 02/19/17 11:44 02/19/17 11:44 02/19/17 11:44 Internal Medicine: Result - Labs CBC & Chem 7: 02/19/17 04:28 02/19/17 04:28 Labs: Short CBC 02/19/17 Range/Units 04:28 WBC 7.3 (4.3-11.1) K/mcL Hgb 10.4 L (12.9-16.9) g/dL Hct 32.9 L (37.5-50.1) % Plt Count 268 (140-400) K/mcL Neutrophils # 4.4 (1.6-8.9) K/mcL BMP 02/19/17 04:28 Sodium 137 Potassium 3.8 Chloride 103 Carbon Dioxide 25 BUN 26 Creatinine 1.35 H Glucose 98 Calcium 8.3 L Liver Function 02/19/17 Range/Units 04:28 Total Bilirubin 0.5 (0.2-1.2) mg/dL AST 19 (5-34) Units/L ALT 15 (0-55) Units/L Alkaline Phosphatase 66 (38-126) Units/L Albumin 2.5 L (3.5-5.0) g/dL - ABG Interpretation ABG results: PT/INR, D-dimer PT 15.4 Seconds (9.4-12.1) H 02/17/17 13:17 - Attending Attestation I examined this patient and my medical decision-making was reviewed with the Resident Physician. I agree with the documented findings, disposition and treatment plan as described except to the extent set forth below. I have seen and examined the patient. Patient is a 81-year-old male with past medical history of atrial fibrillation, aortic stenosis, CHF, COPD and GERD. Admitted for CHF exacerbation. Patient also has elevated troponin. Also being treated for influenza. No other acute events or complaints.
[2017-02-19] MEDS: Ipratropium/Albuterol Neb 3 ML IH SCH ×2 (16:03→22:32)
[2017-02-20] MEDS ORDERED: *HR* Metoprolol 5 MG/5 ML VIAL IVP ONE ×2 (00:51→04:57)
[2017-02-20] MEDS: *HR* Metoprolol 5 MG/5 ML VIAL IVP ONE ×2 (00:54→00:58)
[2017-02-20] MEDS: Ipratropium/Albuterol Neb 3 ML IH SCH ×2 (03:20→10:45)
[2017-02-20 04:17] LABS: Basophils % 0.1 %; Eosinophils % 0.3 %; Immature Granulocytes % 0.5 % (0-4); Lymphocytes # 1.5 K/mcL (0.6-4.6); Lymphocytes % 19.4 %; Mean Corpuscular HGB Conc 31.4 g/dL (31.6-35.5); Mean Corpuscular Hemoglobin 26.4 pg (28.0-33.3); Mean Corpuscular Volume 83.9 fL (83.0-100.0); Mean Platelet Volume 10.6 fL (9.4-12.4); Monocytes # 1.1 K/mcL (0.0-1.3); Monocytes % 14.3 %; Neutrophils # 5.2 K/mcL (1.6-8.9); Platelet Count 286 K/mcL (140-400); Red Blood Count 4.17 M/mcL (4.19-5.50); Red Cell Distribution Width 15.5 % (11.5-14.5); Segmented Neutrophils % 65.4 %
[2017-02-20 04:39] LABS: Alanine Aminotransferase 12 Units/L (7-52); Albumin 3.1 g/dL (3.5-5.7); Alkaline Phosphatase 63 Units/L (34-104); Aspartate Amino Transferase 13 Units/L (13-39); BUN/Creatinine Ratio 23 (6-26); Bilirubin,Total 0.4 mg/dL (0.3-1.0); Blood Urea Nitrogen 30 mg/dL (8-23); Calcium 8.3 mg/dL (8.6-10.3); Carbon Dioxide 28 mEq/L (23-29); Chloride 102 mEq/L (98-107); Glucose 100 mg/dL (70-105); Osmolality,Calculated 290 (280-300); Potassium 3.5 mEq/L (3.5-5.1); Sodium 137 mEq/L (136-145); Total Protein 6.1 g/dL (6.4-8.9); eGFR For African Americans > 60 (> 60); eGFR For Non-African Americans 52 (> 60)
[2017-02-20 07:39] VITALS: BP 132/59
[2017-02-20] MEDS: APIXABAN 5 MG TABLET PO SCH (08:22)
[2017-02-20] MEDS: Metoprolol XL (24 HR) Succ 50 MG TAB.ER.24H PO SCH (08:22)
[2017-02-20] MEDS: Aspirin Enteric Coated 81 MG Tablet PO SCH (08:22)
[2017-02-20] MEDS: Furosemide 40 MG TABLET PO SCH (08:22)
[2017-02-20] MEDS: Oseltamivir Phosphate 30 MG CAPSULE PO SCH (08:23)
[2017-02-20] MEDS ORDERED: Metoprolol XL (24 HR) Succ 25 MG TAB.ER.24H PO ONE (09:19)
--- NOTE | 2017-02-20 10:00 | Discharge Summary ---
<Dontrell So - Last Filed: 02/20/17 10:50> Date of Encounter: 02/20/17 Time of Encounter: 09:56 - Discharge Diagnosis (1) Acute respiratory failure with hypoxia Priority: Primary Status: Acute (2) Influenza A Priority: Secondary Status: Acute (3) Acute exacerbation of CHF (congestive heart failure) Priority: Secondary Status: Acute Qualifiers: Congestive heart failure type: diastolic Qualified Code(s): I50.33 - Acute on chronic diastolic (congestive) heart failure (4) Atrial fibrillation Priority: Secondary Status: Chronic Qualifiers: Atrial fibrillation type: paroxysmal Qualified Code(s): I48.0 - Paroxysmal atrial fibrillation (5) Aortic stenosis Priority: Secondary Status: Chronic Qualifiers: Cardiac valve disease etiology: etiology unspecified Qualified Code(s): I35.0 - Nonrheumatic aortic (valve) stenosis - Discharge Medications Prescriptions: Atorvastatin [Lipitor] 20 mg PO HS #30 tablet Furosemide [Lasix] 20 mg PO DAILY #30 tablet Metoprolol XL (24 HR) Succ [Toprol Xl] 75 mg PO DAILY #30 tab.er.24h Oseltamivir Phosphate [Tamiflu] 30 mg PO BID #6 capsule Home Medications: Acetaminophen [Tylenol] 650 mg PO Q6HR PRN 11/10/16 [History] Aspirin [Lo-Dose Aspirin EC] 81 mg PO DAILY 11/10/16 [History] Ergocalciferol (VITAMIN D2) [Vitamin D2] 50,000 unit PO WE 11/10/16 [History] Montelukast [Singulair] 10 mg PO QAM 11/10/16 [History] Tamsulosin [Flomax] 0.4 mg PO QPM 11/10/16 [History] Apixaban [Eliquis] 2.5 mg PO BID #30 tab 11/12/16 [Rx] Albuterol Neb [Proventil Neb] 2.5 mg IH TID PRN 02/17/17 [History] Albuterol Sulfate [Ventolin Hfa] 2 puff IH Q6H PRN 02/17/17 [History] Budesonide/Formoterol 160/4.5 [Symbicort 160/4.5] 2 puff IH BIDR 02/17/17 [ History] Omeprazole [PriLOSEC] 40 mg PO QAM 02/17/17 [History] Atorvastatin [Lipitor] 20 mg PO HS #30 tablet 02/20/17 [Rx] Furosemide [Lasix] 20 mg PO DAILY #30 tablet 02/20/17 [Rx] Metoprolol XL (24 HR) Succ [Toprol Xl] 75 mg PO DAILY #30 tab.er.24h 02/20/17 [ Rx] Oseltamivir Phosphate [Tamiflu] 30 mg PO BID #6 capsule 02/20/17 [Rx] Allergies/Adverse Reactions: 3 Allergy/AdvReac Type Severity Reaction Status Date / Time prednisone Allergy rash/sweats Verified 02/17/17 10:51 Date of admission: 02/17/17 13:58 Primary care physician: Jadiel Almodovar, Consults: cardiology Discharging clinician: Dontrell So Anticipated date of discharge: 02/20/17 - Patient Status Disposition: Home, Self-Care Condition: Fair Functional capacity at discharge: independent ambulation Overall status at discharge: patient is progressing back to baseline - Discharge Instructions Follow Up With: Jadiel Almodovar MD [Primary Care Provider] - 02/27/17 11:15 am (rust for influenza A, acute CHF exacerbation, afib rvr. lasix increased to 20 daily. ) - Diet and Activity Activity: increase activity as tolerated Diet: low salt diet, other (cardiac diet fluid restrict to 1500 cc) Hospital course: Mr. Abraham is a 81 year old male who presented with chief complaint of shortness of breath which became progressively worse within 24 hours. Patient reported having chest tightness for 30 minutes as well. Patient tried to use his breathing treatments at home but did not find much relief. Patient was found to have Influenza A. Physician more EKG showed A. fib RVR and he was started on Cardizem drip. Patient has a history of atrial fibrillation and is on Eliquis Patient was in acute respiratory failure secondary to acute exacerbation of CHF. BNP was 2404 on admission. Patient also had elevated troponins. He was given IV Lasix, started on a fluid restriction diet and supplemental oxygen. Cardiology was consulted for recommendations. Over the course of the hospital stay patient was diuresed and has respiratory status improved. He was started on oseltamivir. Patient had a history of urinary retention secondary to BPH and had a Jane catheter inserted due to urinary retention. However this was removed and patient was able to produce urine without difficulty. Patient's home Flomax was continued. Patient was transitioned off the Cardizem drip as his rate was controlled and his Toprol-XL dose was increased to 75 mg daily. Patient was able to be weaned off oxygen. Patient went echocardiogram which showed left ventricular ejection fraction 55% and moderate aortic stenosis which has been known in the past. Plan: Continue Toprol-XL. Follow-up with PCP. Finish course of oseltamivir. - Time Spent with Patient Total time spent providing and/or coordinating discharge services: - Constitutional Vitals: Temp Pulse Resp BP Pulse Ox 98.3 F 118 17 132/59 94 02/20/17 07:37 02/20/17 07:37 02/20/17 07:37 02/20/17 07:37 02/20/17 07:37 General appearance: Present: cooperative, A&O X 3, pleasant, no acute distress, answers questions appropriately - Other Additional findings: General: Pleasant without distress HEENT: Head atraumatic, normocephalic, EOMI, PERRL, neck nontender to palpation , absent lymphadenopathy, Moist Mucous Membranes, Heart: Regular rate and rhythm with no murmur Lungs: Clear to auscultation bilaterally Abdomen: Soft nontender, nondistended positive bowel sounds Skin: warm and dry Extremities: Absent pedal edema, Neuro: Cranial nerves II through XII intact, UE and LE sensation equal bilaterally, UE and LEstrength 5/5, alert oriented 3, Vascular: Pedal and radial pulses 2 out of 4 <Pawel Mendez - Last Filed: 02/20/17 13:04> Date of Encounter: 02/20/17 Date of admission: 02/17/17 13:58 Primary care physician: Jadiel Almodovar, [facility] course: Mr. Abraham is a 81 year old male - Time Spent with Patient Total time spent providing and/or coordinating discharge services: - Constitutional Vitals: Temp Pulse Resp BP Pulse Ox 98.3 F 118 17 132/59 94 02/20/17 07:37 02/20/17 07:37 02/20/17 10:46 02/20/17 07:37 02/20/17 10:46 - Attending Attestation I examined this patient and my medical decision-making was reviewed with the Resident Physician. I agree with the documented findings, disposition and treatment plan as described except to the extent set forth below.
[2017-02-20] MEDS: Budesonide/Formoterol 160/4.5 MDI IH SCH (10:46)
[2017-02-21] MEDS ORDERED: Metoprolol XL (24 HR) Succ 50 MG TAB.ER.24H PO SCH (09:00)
== END 2017-02-20 11:10 | disposition home or self-care (01) | DRG 291 ==
LOC: EMEROO 08:53 → 2ANU 08:53 → SUATTDRO 11:11 → 2ANU 12:03
PROVIDERS: ADMIT Internal Medicine; ATTEND Internal Medicine

== ENCOUNTER 2019-04-29 04:11 | Observation (INO) ==
[2019-04-29] MEDS ORDERED: Isovue-370 500 ML BOTTLE IVP ONE (04:34)
[2019-04-29 04:48] LABS: Basophils % 0.2 %; Eosinophils # 0.1 K/mcL (0.0-0.6); Eosinophils % 0.6 %; Hematocrit 41.4 % (37.5-50.1); Hemoglobin 12.7 g/dL (12.9-16.9); Immature Granulocytes % 1.1 % (0-4); Lymphocytes # 1.5 K/mcL (0.6-4.6); Lymphocytes % 14.7 %; Mean Corpuscular HGB Conc 30.7 g/dL (31.6-35.5); Mean Corpuscular Hemoglobin 27.7 pg (28.0-33.3); Mean Corpuscular Volume 90.2 fL (83.0-100.0); Mean Platelet Volume 10.1 fL (9.4-12.4); Monocytes % 9.8 %; Neutrophils # 7.5 K/mcL (1.6-8.9); Platelet Count 196 K/mcL (140-400); Red Blood Count 4.59 M/mcL (4.19-5.50); Red Cell Distribution Width 16.1 % (11.5-14.5); Segmented Neutrophils % 73.6 %; White Blood Count 10.1 K/mcL (4.3-11.1)
[2019-04-29 04:53] LABS: INR 1.2; Prothrombin Time 13.9 Seconds (9.4-12.1)
[2019-04-29] MEDS ORDERED: Morphine Sulfate 2 MG/ML SYRINGE IVP ONE (04:54)
[2019-04-29 04:55] LABS: Activated Partial Thrombo Time 24.5 Seconds (26.0-36.0)
[2019-04-29 05:10] LABS: Alanine Aminotransferase 14 Units/L (7-52); Albumin 3.5 g/dL (3.5-5.7); Albumin/Globulin Ratio 1.2 (1.1-2.2); Alkaline Phosphatase 63 Units/L (34-104); Aspartate Amino Transferase 15 Units/L (13-39); BUN/Creatinine Ratio 22 (6-26); Bilirubin,Direct 0.2 mg/dL (0.0-0.2); Bilirubin,Indirect 0.6 mg/dL (0.0-1.0); Bilirubin,Total 0.8 mg/dL (0.3-1.0); Blood Urea Nitrogen 28 mg/dL (8-23); Calcium 8.9 mg/dL (8.6-10.3); Carbon Dioxide 28 mEq/L (23-29); Chloride 106 mEq/L (98-107); Glucose 111 mg/dL (70-105); Lipase 15 Units/L (11-82); Osmolality,Calculated 298 (280-300); Sodium 141 mEq/L (136-145); Total Protein 6.5 g/dL (6.4-8.9); Troponin I < 0.03 ng/mL (< 0.04); eGFR For African Americans > 60 (> 60); eGFR For Non-African Americans 53 (> 60)
[2019-04-29] MEDS ORDERED: 0.9 % Sodium Chloride 1,000 ML IVC SCH (05:30)
[2019-04-29] MEDS ORDERED: Ondansetron 4 MG/2 ML VIAL IVP PRN (07:57)
[2019-04-29] MEDS ORDERED: Naloxone 0.4 MG/ML INJ IVP PRN (07:57)
[2019-04-29 08:09] LABS: Bilirubin,Urine Negative (Negative); Blood,Urine Moderate (Negative); Clarity,Urine Clear (Clear); Color,Urine Yellow (Yellow); Glucose,Urine (UA) Normal (Normal); Ketones,Urine Negative (Negative); Leukocyte Esterase,Urine Negative (Negative); Nitrite,Urine Negative (Negative); PH,Urine 6.5 pH Units (5.0-8.0); Protein,Urine Negative (Neg-Trace); Specific Gravity,Urine > 1.030 (1.010-1.025); Urobilinogen,Urine Normal (Normal)
[2019-04-29 08:11] LABS: Bacteria,Urine None Seen per hpf (None-Few); Hyaline Casts,Urine None Seen per lpf (None-Few); RBC,Urine 15-30 per hpf (0-3); Squamous Epithelial Cell,Urine Many per lpf (None-Few); WBC,Urine 0-3 per hpf (0-3)
[2019-04-29] MEDS ORDERED: Furosemide 40 MG/4 ML VIAL IVP ONE (08:31)
[2019-04-29] MEDS ORDERED: Ipratropium/Albuterol Neb 3 ML IH PRN (08:31)
[2019-04-29] MEDS: Budesonide/Formoterol 160/4.5 1 PUFF INH IH SCH (09:37)
[2019-04-29] MEDS: Metoprolol XL (24 HR) Succ 50 MG TAB.ER.24H PO SCH ×2 (10:23→21:53)
[2019-04-29] MEDS: Apixaban 5 MG TABLET PO SCH ×2 (10:24→21:53)
[2019-04-29 23:15] LABS: Adenovirus Not Detected (Not Detect); Bordetella Pertussis Not Detected (Not Detect); Chlamydophila pneumoniae Not Detected (Not Detect); Coronavirus 229E Not Detected (Not Detect); Coronavirus HKU1 Not Detected (Not Detect); Coronavirus NL63 Not Detected (Not Detect); Coronavirus OC43 Not Detected (Not Detect); Human Metapneumovirus Not Detected (Not Detect); Human Rhinovirus/Enterovirus Not Detected (Not Detect); Influenza A Subtype 2009 H1 Not Detected (Not Detect); Influenza B Not Detected (Not Detect); Mycoplasma pneumoniae Not Detected (Not Detect); Parainfluenza Virus 1 Not Detected (Not Detect); Parainfluenza Virus 2 Not Detected (Not Detect); Parainfluenza Virus 3 Not Detected (Not Detect); Parainfluenza Virus 4 Not Detected (Not Detect); Respiratory Syncytial Virus Not Detected (Not Detect)
[2019-04-30 07:06] LABS: Basophils % 0.3 %; Eosinophils # 0.1 K/mcL (0.0-0.6); Eosinophils % 1.2 %; Hematocrit 39.1 % (37.5-50.1); Hemoglobin 12.5 g/dL (12.9-16.9); Immature Granulocytes % 1.1 % (0-4); Lymphocytes # 1.5 K/mcL (0.6-4.6); Mean Corpuscular Hemoglobin 28.4 pg (28.0-33.3); Mean Corpuscular Volume 88.9 fL (83.0-100.0); Mean Platelet Volume 10.6 fL (9.4-12.4); Monocytes # 0.9 K/mcL (0.0-1.3); Monocytes % 10.1 %; Neutrophils # 6.6 K/mcL (1.6-8.9); Platelet Count 181 K/mcL (140-400); Segmented Neutrophils % 71.3 %; White Blood Count 9.3 K/mcL (4.3-11.1)
[2019-04-30] MEDS: Budesonide/Formoterol 160/4.5 1 PUFF INH IH SCH (07:14)
[2019-04-30 07:26] LABS: BUN/Creatinine Ratio 24 (6-26); Blood Urea Nitrogen 28 mg/dL (8-23); Calcium 8.8 mg/dL (8.6-10.3); Carbon Dioxide 25 mEq/L (23-29); Chloride 101 mEq/L (98-107); Glucose 60 mg/dL (70-105); Osmolality,Calculated 295 (280-300); Potassium 3.6 mEq/L (3.5-5.1); Sodium 141 mEq/L (136-145); eGFR For African Americans > 60 (> 60); eGFR For Non-African Americans > 60 (> 60)
[2019-04-30] MEDS: Apixaban 5 MG TABLET PO SCH ×2 (09:29→20:25)
[2019-04-30] MEDS: Metoprolol XL (24 HR) Succ 50 MG TAB.ER.24H PO SCH ×2 (09:30→20:26)
[2019-04-30] MEDS ORDERED: Acetaminophen IV 500 MG/50 ML INFUS..BTL IVPB ONE (13:37)
[2019-05-01 02:41] LABS: Hematocrit 40.1 % (37.5-50.1); Hemoglobin 12.6 g/dL (12.9-16.9); Mean Corpuscular HGB Conc 31.4 g/dL (31.6-35.5); Mean Corpuscular Hemoglobin 27.3 pg (28.0-33.3); Mean Corpuscular Volume 86.8 fL (83.0-100.0); Mean Platelet Volume 9.5 fL (9.4-12.4); Platelet Count 180 K/mcL (140-400); Red Blood Count 4.62 M/mcL (4.19-5.50); Red Cell Distribution Width 15.9 % (11.5-14.5); White Blood Count 9.4 K/mcL (4.3-11.1)
[2019-05-01 02:56] LABS: BUN/Creatinine Ratio 28 (6-26); Blood Urea Nitrogen 29 mg/dL (8-23); Calcium 8.7 mg/dL (8.6-10.3); Carbon Dioxide 25 mEq/L (23-29); Chloride 99 mEq/L (98-107); Glucose 74 mg/dL (70-105); Osmolality,Calculated 286 (280-300); Potassium 3.2 mEq/L (3.5-5.1); Sodium 136 mEq/L (136-145); eGFR For African Americans > 60 (> 60); eGFR For Non-African Americans > 60 (> 60)
[2019-05-01] MEDS: Budesonide/Formoterol 160/4.5 1 PUFF INH IH SCH (07:54)
[2019-05-01] MEDS: Metoprolol XL (24 HR) Succ 50 MG TAB.ER.24H PO SCH ×2 (09:33→20:41)
[2019-05-01] MEDS: Apixaban 5 MG TABLET PO SCH ×2 (09:33→20:42)
[2019-05-01] MEDS ORDERED: Acetaminophen IV 500 MG/50 ML INFUS..BTL IVPB ONE ×2 (09:35→14:00)
[2019-05-01] MEDS: 0.9 % Sodium Chloride 500 ML IVC SCH ×2 (13:03→20:38)
[2019-05-01] MEDS ORDERED: Lidocaine -MPF 2% 2 ML VIAL ONE (13:15)
[2019-05-01] MEDS ORDERED: *HR* Propofol 200 MG/20 ML VIAL IVP ONE (13:16)
[2019-05-02 05:44] LABS: Hematocrit 41.7 % (37.5-50.1); Hemoglobin 13.1 g/dL (12.9-16.9); Mean Corpuscular HGB Conc 31.4 g/dL (31.6-35.5); Mean Corpuscular Hemoglobin 27.5 pg (28.0-33.3); Mean Corpuscular Volume 87.4 fL (83.0-100.0); Mean Platelet Volume 9.7 fL (9.4-12.4); Platelet Count 184 K/mcL (140-400); Red Blood Count 4.77 M/mcL (4.19-5.50); Red Cell Distribution Width 15.9 % (11.5-14.5)
[2019-05-02 06:05] LABS: BUN/Creatinine Ratio 26 (6-26); Blood Urea Nitrogen 30 mg/dL (8-23); Calcium 8.6 mg/dL (8.6-10.3); Carbon Dioxide 22 mEq/L (23-29); Chloride 103 mEq/L (98-107); Glucose 66 mg/dL (70-105); Osmolality,Calculated 288 (280-300); Potassium 3.8 mEq/L (3.5-5.1); Sodium 137 mEq/L (136-145); eGFR For African Americans > 60 (> 60); eGFR For Non-African Americans > 60 (> 60)
[2019-05-02] MEDS: Apixaban 5 MG TABLET PO SCH ×2 (07:34→21:12)
[2019-05-02] MEDS: Metoprolol XL (24 HR) Succ 50 MG TAB.ER.24H PO SCH ×2 (07:34→21:15)
[2019-05-02] MEDS: Furosemide 20 MG TABLET PO SCH (07:34)
[2019-05-02] MEDS: Budesonide/Formoterol 160/4.5 1 PUFF INH IH SCH (07:40)
[2019-05-02] MEDS: 0.9 % Sodium Chloride 500 ML IVC SCH (13:30)
[2019-05-02] MEDS ORDERED: Acetaminophen IV 500 MG/50 ML INFUS..BTL IVPB ONE ×2 (13:55→23:00)
[2019-05-02] MEDS ORDERED: Artificial Tears SOLN 15 ML BOTTLE BOTH EYES PRN (17:39)
[2019-05-02] MEDS ORDERED: 0.9 % Sodium Chloride 500 ML IVC SCH (17:45)
[2019-05-03 07:21] VITALS: BP 104/65
[2019-05-03] MEDS: Apixaban 5 MG TABLET PO SCH (07:48)
[2019-05-03] MEDS: Furosemide 20 MG TABLET PO SCH (07:48)
[2019-05-03] MEDS: Metoprolol XL (24 HR) Succ 50 MG TAB.ER.24H PO SCH (07:54)
[2019-05-03] MEDS ORDERED: Acetaminophen IV 500 MG/50 ML INFUS..BTL IVPB ONE (07:57)
[2019-05-03 09:08] LABS: Hematocrit 42.9 % (37.5-50.1); Hemoglobin 13.4 g/dL (12.9-16.9); Mean Corpuscular HGB Conc 31.2 g/dL (31.6-35.5); Mean Corpuscular Hemoglobin 27.5 pg (28.0-33.3); Mean Corpuscular Volume 88.1 fL (83.0-100.0); Platelet Count 198 K/mcL (140-400); Red Blood Count 4.87 M/mcL (4.19-5.50); Red Cell Distribution Width 15.8 % (11.5-14.5)
[2019-05-03 09:23] LABS: Calcium 8.5 mg/dL (8.6-10.3); Potassium 3.4 mEq/L (3.5-5.1)
[2019-05-03] MEDS: Budesonide/Formoterol 160/4.5 1 PUFF INH IH SCH (09:44)
== END 2019-05-03 12:20 | disposition home or self-care (01) ==
LOC: 3BNU 04:11 → EMEROOARM 04:11 → 3BNU 09:02
PROVIDERS: ADMIT Internal Medicine; ATTEND Internal Medicine
PROC: ENDOEBX (2019-05-01 13:00)

== ENCOUNTER 2019-07-19 10:25 | Observation (INO) ==
[2019-07-19] MEDS ORDERED: Isovue-370 500 ML BOTTLE IVP ONE (10:48)
[2019-07-19] MEDS ORDERED: *HR* Metoprolol 5 MG/5 ML VIAL IVP ONE (11:00)
[2019-07-19 11:16] LABS: Basophils # 0.1 K/mcL (0.0-0.2); Basophils % 0.5 %; Eosinophils % 0.2 %; Hematocrit 46.8 % (37.5-50.1); Hemoglobin 14.6 g/dL (12.9-16.9); Immature Granulocytes % 2.8 % (0-4); Lymphocytes # 1.2 K/mcL (0.6-4.6); Lymphocytes % 9.2 %; Mean Corpuscular HGB Conc 31.2 g/dL (31.6-35.5); Mean Corpuscular Hemoglobin 28.9 pg (28.0-33.3); Mean Corpuscular Volume 92.7 fL (83.0-100.0); Mean Platelet Volume 10.3 fL (9.4-12.4); Monocytes # 1.1 K/mcL (0.0-1.3); Monocytes % 8.4 %; Neutrophils # 10.1 K/mcL (1.6-8.9); Nucleated Red Blood Cells 0.2 /100 WBC (0); Platelet Count 204 K/mcL (140-400); Red Blood Count 5.05 M/mcL (4.19-5.50); Red Cell Distribution Width 15.8 % (11.5-14.5); Segmented Neutrophils % 78.9 %; White Blood Count 12.8 K/mcL (4.3-11.1)
[2019-07-19 11:18] LABS: INR 1.2; Prothrombin Time 13.9 Seconds (9.4-12.1)
[2019-07-19 11:20] LABS: Activated Partial Thrombo Time 22.9 Seconds (26.0-36.0)
[2019-07-19 11:29] LABS: Alanine Aminotransferase 18 Units/L (7-52); Albumin 3.3 g/dL (3.5-5.7); Albumin/Globulin Ratio 1.2 (1.1-2.2); Alkaline Phosphatase 68 Units/L (34-104); Aspartate Amino Transferase 11 Units/L (13-39); BUN/Creatinine Ratio 35 (6-26); Bilirubin,Total 0.7 mg/dL (0.3-1.0); Blood Urea Nitrogen 41 mg/dL (8-23); Calcium 8.7 mg/dL (8.6-10.3); Carbon Dioxide 29 mEq/L (23-29); Chloride 104 mEq/L (98-107); Globulin 2.7 g/dL (2.4-3.5); Glucose 111 mg/dL (70-105); Osmolality,Calculated 303 (280-300); Potassium 4.1 mEq/L (3.5-5.1); Sodium 141 mEq/L (136-145); eGFR For African Americans > 60 (> 60); eGFR For Non-African Americans > 60 (> 60)
[2019-07-19 11:30] LABS: Troponin I 0.03 ng/mL (< 0.04)
[2019-07-19 11:44] LABS: Lipase 9 Units/L (11-82)
[2019-07-19] MEDS ORDERED: Aspirin 325 MG TABLET PO STA (12:27)
[2019-07-19] MEDS ORDERED: Aspirin 81 MG TAB.CHEW PO STA (12:28)
[2019-07-19] MEDS ORDERED: Pantoprazole 40 MG VIAL IVP ONE (12:28)
[2019-07-19 12:59] LABS: Bilirubin,Urine Negative (Negative); Blood,Urine Moderate (Negative); Clarity,Urine Clear (Clear); Color,Urine Yellow (Yellow); Glucose,Urine (UA) Normal (Normal); Ketones,Urine Negative (Negative); Leukocyte Esterase,Urine Negative (Negative); Nitrite,Urine Negative (Negative); Protein,Urine Trace mg/dL (Neg-Trace); Specific Gravity,Urine 1.021 (1.010-1.025); Urobilinogen,Urine Normal (Normal)
[2019-07-19 13:02] LABS: Bacteria,Urine None Seen per hpf (None-Few); Hyaline Casts,Urine None Seen per lpf (None-Few); RBC,Urine 15-30 per hpf (0-3); Squamous Epithelial Cell,Urine Moderate per lpf (None-Few); WBC,Urine 0-3 per hpf (0-3)
[2019-07-19] MEDS ORDERED: Acetaminophen 325 MG TABLET PO PRN (13:06)
[2019-07-19] MEDS ORDERED: Naloxone 0.4 MG/ML INJ IVP PRN (13:06)
[2019-07-19] MEDS ORDERED: Ondansetron 4 MG/2 ML VIAL IVP PRN (13:06)
[2019-07-19] MEDS: predniSONE 10 MG TABLET PO SCH (19:46)
[2019-07-19] MEDS: Metoprolol XL (24 HR) Succ 50 MG TAB.ER.24H PO SCH (19:46)
[2019-07-19] MEDS ORDERED: Apixaban 2.5 MG TABLET PO SCH (21:00)
[2019-07-20 06:23] LABS: Basophils % 0.3 %; Eosinophils % 0.2 %; Hematocrit 43.5 % (37.5-50.1); Hemoglobin 13.6 g/dL (12.9-16.9); Immature Granulocytes % 1.5 % (0-4); Lymphocytes # 0.9 K/mcL (0.6-4.6); Lymphocytes % 7.8 %; Mean Corpuscular HGB Conc 31.3 g/dL (31.6-35.5); Mean Corpuscular Hemoglobin 29.2 pg (28.0-33.3); Mean Corpuscular Volume 93.5 fL (83.0-100.0); Mean Platelet Volume 10.5 fL (9.4-12.4); Monocytes # 0.8 K/mcL (0.0-1.3); Monocytes % 7.3 %; Neutrophils # 9.2 K/mcL (1.6-8.9); Platelet Count 162 K/mcL (140-400); Red Blood Count 4.65 M/mcL (4.19-5.50); Red Cell Distribution Width 15.7 % (11.5-14.5); Segmented Neutrophils % 82.9 %; White Blood Count 11.1 K/mcL (4.3-11.1)
[2019-07-20 06:44] LABS: BUN/Creatinine Ratio 39 (6-26); Blood Urea Nitrogen 39 mg/dL (8-23); Calcium 8.5 mg/dL (8.6-10.3); Carbon Dioxide 31 mEq/L (23-29); Chloride 104 mEq/L (98-107); Glucose 93 mg/dL (70-105); Magnesium 1.9 mg/dL (1.6-2.6); Osmolality,Calculated 299 (280-300); Potassium 4.3 mEq/L (3.5-5.1); Sodium 140 mEq/L (136-145); eGFR For African Americans > 60 (> 60); eGFR For Non-African Americans > 60 (> 60)
[2019-07-20] MEDS ORDERED: Pantoprazole 40 MG VIAL IVP SCH (09:00)
[2019-07-20] MEDS ORDERED: *HR* Heparin 5,000 UNIT/ML VIAL IVP PRN ×2 (10:13)
[2019-07-20] MEDS ORDERED: *HR* Heparin 5,000 UNIT/ML VIAL IVP ONE (10:13)
[2019-07-20] MEDS ORDERED: Heparin 25,000 UNIT/250 ML D5W 25,000 UNIT/250 ML IV.SOLN IVC SCH ×2 (10:15→10:45)
[2019-07-20] MEDS: Metoprolol XL (24 HR) Succ 50 MG TAB.ER.24H PO SCH (11:12)
[2019-07-20] MEDS: predniSONE 10 MG TABLET PO SCH (11:12)
[2019-07-20 11:27] LABS: Hematocrit 47.7 % (37.5-50.1); Hemoglobin 14.7 g/dL (12.9-16.9); Mean Corpuscular HGB Conc 30.8 g/dL (31.6-35.5); Mean Corpuscular Hemoglobin 28.8 pg (28.0-33.3); Mean Corpuscular Volume 93.5 fL (83.0-100.0); Mean Platelet Volume 10.3 fL (9.4-12.4); Platelet Count 180 K/mcL (140-400); Red Cell Distribution Width 15.6 % (11.5-14.5); White Blood Count 11.7 K/mcL (4.3-11.1)
[2019-07-20 11:30] LABS: Heparin anti-factor XA UFH 0.22 IU/mL (0.30-0.70)
[2019-07-20 11:31] LABS: Prothrombin Time 11.4 Seconds (9.4-12.1)
[2019-07-20] MEDS ORDERED: Lidocaine HCL 4 ML Topical Solution (Laryng-O-Jet Kit Sterile Pak) TP ONE (19:42)
[2019-07-20] MEDS ORDERED: *HR* FentaNYL (PF) 100 MCG/2 ML VIAL ONE (19:44)
[2019-07-20] MEDS ORDERED: *HR* Propofol 200 MG/20 ML VIAL IVP ONE (19:44)
[2019-07-20] MEDS ORDERED: *HR* Succinylcholine 200 MG/10 ML VIAL IVP ONE (19:47)
[2019-07-20] MEDS ORDERED: Lidocaine -MPF 2% 2 ML VIAL ONE (19:47)
[2019-07-20] MEDS ORDERED: Dexamethasone 4 MG/ML VIAL ONE (19:48)
[2019-07-20] MEDS ORDERED: Ondansetron 4 MG/2 ML VIAL ONE (19:48)
[2019-07-20] MEDS ORDERED: *HR* FentaNYL (PF) 100 MCG/2 ML VIAL IVP PRN (20:31)
[2019-07-20] MEDS ORDERED: Ondansetron 4 MG/2 ML VIAL IVP ONE (20:31)
[2019-07-20] MEDS ORDERED: CeFAZolin Syr 2,000MG/20 ML 2,000 MG/20 ML SYRINGE IVPB ONE (22:11)
[2019-07-20] MEDS ORDERED: *HR* PHENYLEPHRINE 1,000 MCG/10 ML SYRINGE IVP ONE (22:14)
[2019-07-20] MEDS ORDERED: EPHEDrine 50 MG/ML VIAL ONE (22:21)
[2019-07-21] MEDS ORDERED: Ondansetron 4 MG/2 ML VIAL IVP ONE (00:15)
[2019-07-21] MEDS ORDERED: Ondansetron 4 MG/2 ML VIAL IVP PRN (00:15)
[2019-07-21] MEDS ORDERED: Acetaminophen 325 MG TABLET PO PRN (00:15)
[2019-07-21] MEDS ORDERED: Naloxone 0.4 MG/ML INJ IVP PRN (00:15)
[2019-07-21] MEDS: Metoprolol XL (24 HR) Succ 50 MG TAB.ER.24H PO SCH (02:46)
[2019-07-21] MEDS: predniSONE 10 MG TABLET PO SCH (02:46)
[2019-07-21 07:18] LABS: Basophils % 0.2 %; Hematocrit 43.7 % (37.5-50.1); Hemoglobin 13.6 g/dL (12.9-16.9); Immature Granulocytes % 1.3 % (0-4); Lymphocytes # 0.7 K/mcL (0.6-4.6); Lymphocytes % 5.8 %; Mean Corpuscular HGB Conc 31.1 g/dL (31.6-35.5); Mean Corpuscular Hemoglobin 28.9 pg (28.0-33.3); Mean Corpuscular Volume 92.8 fL (83.0-100.0); Mean Platelet Volume 10.7 fL (9.4-12.4); Monocytes # 0.6 K/mcL (0.0-1.3); Monocytes % 5.1 %; Neutrophils # 9.8 K/mcL (1.6-8.9); Platelet Count 182 K/mcL (140-400); Red Blood Count 4.71 M/mcL (4.19-5.50); Red Cell Distribution Width 15.3 % (11.5-14.5); Segmented Neutrophils % 87.6 %; White Blood Count 11.2 K/mcL (4.3-11.1)
[2019-07-21 07:30] VITALS: BP 133/82
[2019-07-21 07:40] LABS: Alanine Aminotransferase 42 Units/L (7-52); Albumin/Globulin Ratio 1.4 (1.1-2.2); Alkaline Phosphatase 62 Units/L (34-104); Aspartate Amino Transferase 39 Units/L (13-39); BUN/Creatinine Ratio 39 (6-26); Bilirubin,Total 0.7 mg/dL (0.3-1.0); Blood Urea Nitrogen 40 mg/dL (8-23); Calcium 8.5 mg/dL (8.6-10.3); Carbon Dioxide 26 mEq/L (23-29); Chloride 101 mEq/L (98-107); Globulin 2.2 g/dL (2.4-3.5); Glucose 87 mg/dL (70-105); Magnesium 1.8 mg/dL (1.6-2.6); Osmolality,Calculated 295 (280-300); Phosphorous 4.7 mg/dL (2.7-4.5); Potassium 4.5 mEq/L (3.5-5.1); Sodium 138 mEq/L (136-145); Total Protein 5.2 g/dL (6.4-8.9); eGFR For African Americans > 60 (> 60); eGFR For Non-African Americans > 60 (> 60)
[2019-07-21] MEDS ORDERED: Metoprolol XL (24 HR) Succ 50 MG TAB.ER.24H PO SCH (09:00)
[2019-07-21] MEDS ORDERED: Pantoprazole 40 MG VIAL IVP SCH (09:00)
[2019-07-21] MEDS ORDERED: Apixaban 5 MG TABLET PO SCH (09:00)
[2019-07-21] MEDS ORDERED: predniSONE 10 MG TABLET PO SCH (09:00)
== END 2019-07-21 11:55 | disposition home or self-care (01) ==
LOC: 3BNU 10:25 → EMEROOARM 10:25 → SUATTDRO 12:54 → 3BNU 13:50
PROVIDERS: ADMIT Internal Medicine; ATTEND Internal Medicine

== ENCOUNTER 2019-09-06 15:51 | Inpatient (IN) ==
[2019-09-06 17:31] LABS: Basophils # 0.1 K/mcL (0.0-0.2); Basophils % 0.6 %; Eosinophils % 0.3 %; Hematocrit 35.8 % (37.5-50.1); Hemoglobin 11.6 g/dL (12.9-16.9); Immature Granulocytes % 3.7 % (0-4); Lymphocytes # 0.9 K/mcL (0.6-4.6); Mean Corpuscular HGB Conc 32.4 g/dL (31.6-35.5); Mean Corpuscular Hemoglobin 29.8 pg (28.0-33.3); Mean Platelet Volume 10.2 fL (9.4-12.4); Neutrophils # 7.9 K/mcL (1.6-8.9); Nucleated Red Blood Cells 0.2 /100 WBC (0); Platelet Count 210 K/mcL (140-400); Red Blood Count 3.89 M/mcL (4.19-5.50); Red Cell Distribution Width 16.1 % (11.5-14.5); Segmented Neutrophils % 76.4 %; White Blood Count 10.4 K/mcL (4.3-11.1)
[2019-09-06 17:46] LABS: Activated Partial Thrombo Time 34.9 Seconds (26.0-36.0)
[2019-09-06 17:47] LABS: INR 2.8; Prothrombin Time 31.5 Seconds (9.4-12.1)
[2019-09-06 17:53] LABS: Albumin/Globulin Ratio 1.1 (1.1-2.2); Bilirubin,Total 1.8 mg/dL (0.3-1.0); Calcium 8.5 mg/dL (8.6-10.3); Globulin 2.7 g/dL (2.4-3.5); Potassium 3.7 mEq/L (3.5-5.1); Total Protein 5.7 g/dL (6.4-8.9)
[2019-09-06 17:57] LABS: Troponin I 0.05 ng/mL (< 0.04)
[2019-09-06 18:04] LABS: Bilirubin,Urine Negative (Negative); Blood,Urine Small (Negative); Clarity,Urine Clear (Clear); Color,Urine Yellow (Yellow); Glucose,Urine (UA) Normal (Normal); Hyaline Casts,Urine Few per lpf (None Seen); Ketones,Urine Negative (Negative); Leukocyte Esterase,Urine Negative (Negative); Mucus,Urine Few per lpf (None-Few); Nitrite,Urine Negative (Negative); PH,Urine 5.5 pH Units (5.0-8.0); Protein,Urine Negative (Neg-Trace); Specific Gravity,Urine 1.013 (1.010-1.025); Squamous Epithelial Cell,Urine Few per hpf (None-Few); Urobilinogen,Urine Normal (Normal); WBC,Urine 0-3 per hpf (0-3)
[2019-09-06] MEDS ORDERED: 0.9 % Sodium Chloride 500 ML IVC ONE (20:10)
[2019-09-06] MEDS ORDERED: Aspirin 81 MG TAB.CHEW PO ONE (20:15)
[2019-09-06] MEDS ORDERED: *HR* OxyCODONE/APAP 5/325 TABLET PO PRN (21:58)
[2019-09-06] MEDS ORDERED: Naloxone 0.4 MG/ML INJ IVP PRN (21:59)
[2019-09-06] MEDS ORDERED: *HR* Promethazine 25 MG/ML VIAL IVP PRN (21:59)
[2019-09-06] MEDS ORDERED: Acetaminophen 325 MG TABLET PO PRN (21:59)
[2019-09-07 01:04] LABS: Hemoglobin 10.4 g/dL (12.9-16.9); Mean Corpuscular HGB Conc 32.5 g/dL (31.6-35.5); Mean Corpuscular Hemoglobin 29.3 pg (28.0-33.3); Mean Corpuscular Volume 90.1 fL (83.0-100.0); Mean Platelet Volume 10.4 fL (9.4-12.4); Platelet Count 174 K/mcL (140-400); Red Blood Count 3.55 M/mcL (4.19-5.50); Red Cell Distribution Width 15.9 % (11.5-14.5); White Blood Count 10.1 K/mcL (4.3-11.1)
[2019-09-07 01:05] LABS: INR 2.3; Prothrombin Time 26.7 Seconds (9.4-12.1)
[2019-09-07 01:13] LABS: BUN/Creatinine Ratio 22 (6-26); Blood Urea Nitrogen 26 mg/dL (8-23); Calcium 7.6 mg/dL (8.6-10.3); Carbon Dioxide 26 mEq/L (23-29); Chloride 100 mEq/L (98-107); Glucose 83 mg/dL (70-105); Magnesium 1.2 mg/dL (1.6-2.6); Osmolality,Calculated 282 (280-300); Phosphorous 3.2 mg/dL (2.7-4.5); Potassium 3.3 mEq/L (3.5-5.1); Sodium 134 mEq/L (136-145); eGFR For African Americans > 60 (> 60); eGFR For Non-African Americans 59 (> 60)
[2019-09-07 01:17] LABS: Troponin I 0.04 ng/mL (< 0.04)
[2019-09-07] MEDS ORDERED: Levalbuterol 1 PUFF INHALER IH PRN ×2 (05:29→06:00)
[2019-09-07] MEDS ORDERED: Furosemide 20 MG/2 ML VIAL IVP ONE (05:29)
[2019-09-07] MEDS ORDERED: Isovue-370 500 ML BOTTLE IVP ONE (09:39)
[2019-09-07] MEDS: Budesonide/Formoterol 160/4.5 1 PUFF INH IH SCH ×2 (11:02→20:20)
[2019-09-07] MEDS ORDERED: Aminoglycoside Consult 1 EACH MC ONE (11:56)
[2019-09-07] MEDS ORDERED: methylPREDNISolone 125 MG/2 ML VIAL IVP ONE (12:01)
[2019-09-07 13:56] LABS: Adenovirus Not Detected (Not Detect); Bordetella Pertussis Not Detected (Not Detect); Chlamydophila pneumoniae Not Detected (Not Detect); Coronavirus 229E Not Detected (Not Detect); Coronavirus HKU1 Not Detected (Not Detect); Coronavirus NL63 Not Detected (Not Detect); Coronavirus OC43 Not Detected (Not Detect); Human Metapneumovirus Not Detected (Not Detect); Human Rhinovirus/Enterovirus Not Detected (Not Detect); Influenza A Subtype 2009 H1 Not Detected (Not Detect); Influenza B Not Detected (Not Detect); Mycoplasma pneumoniae Not Detected (Not Detect); Parainfluenza Virus 1 Not Detected (Not Detect); Parainfluenza Virus 2 Not Detected (Not Detect); Parainfluenza Virus 3 Not Detected (Not Detect); Parainfluenza Virus 4 Not Detected (Not Detect); Respiratory Syncytial Virus Not Detected (Not Detect)
[2019-09-07] MEDS: Dexamethasone 4 MG/ML VIAL IVP SCH (15:21)
[2019-09-07] MEDS: Piperacillin/Tazobactam 3.375 GM in 0.9 % Sodium Chloride Mini Bag 100 ML IVPB SCH (15:22)
[2019-09-07] MEDS ORDERED: MethylPREDNISolone 40 MG/ML VIAL IVP SCH ×2 (16:00→22:00)
[2019-09-07 16:25] LABS: ABG Base Excess 1 mEq/L (-2 to 3); ABG HCO3 25 mEq/L (21-27); ABG Oxygen Saturation 98 % (95-98); ABG PCO2 40 mmHg (35-45); ABG PH 7.41 pH Units (7.32-7.45); ABG PO2 96 mmHg (85-104); ABG TCO2 27 mEq/L (20-26)
[2019-09-08] MEDS: Piperacillin/Tazobactam 3.375 GM in 0.9 % Sodium Chloride Mini Bag 100 ML IVPB SCH ×2 (01:11→08:35)
[2019-09-08 07:19] LABS: Albumin 2.5 g/dL (3.5-5.7); Albumin/Globulin Ratio 0.9 (1.1-2.2); Bilirubin,Direct 0.3 mg/dL (0.0-0.2); Bilirubin,Indirect 0.7 mg/dL (0.0-1.0); Globulin 2.7 g/dL (2.4-3.5); Total Protein 5.2 g/dL (6.4-8.9)
[2019-09-08] MEDS: Budesonide/Formoterol 160/4.5 1 PUFF INH IH SCH ×2 (08:12→21:04)
[2019-09-08] MEDS: Dexamethasone 4 MG/ML VIAL IVP SCH (08:35)
[2019-09-08] MEDS ORDERED: *HR* Heparin 5,000 UNIT/ML VIAL IVP PRN (08:43)
[2019-09-08] MEDS ORDERED: Heparin 25,000 UNIT/250 ML D5W 25,000 UNIT/250 ML IV.SOLN IVC SCH (08:45)
[2019-09-08 09:48] LABS: Basophils % 0.1 %; Hematocrit 33.8 % (37.5-50.1); Hemoglobin 10.7 g/dL (12.9-16.9); Immature Granulocytes % 1.1 % (0-4); Lymphocytes # 0.8 K/mcL (0.6-4.6); Mean Corpuscular HGB Conc 31.7 g/dL (31.6-35.5); Mean Corpuscular Hemoglobin 28.6 pg (28.0-33.3); Mean Corpuscular Volume 90.4 fL (83.0-100.0); Mean Platelet Volume 10.4 fL (9.4-12.4); Monocytes # 0.6 K/mcL (0.0-1.3); Monocytes % 4.6 %; Platelet Count 221 K/mcL (140-400); Red Blood Count 3.74 M/mcL (4.19-5.50); Red Cell Distribution Width 15.9 % (11.5-14.5); Segmented Neutrophils % 88.2 %; White Blood Count 12.5 K/mcL (4.3-11.1)
[2019-09-08 09:52] LABS: INR 1.5; Prothrombin Time 17.5 Seconds (9.4-12.1)
[2019-09-08 10:05] LABS: BUN/Creatinine Ratio 23 (6-26); Blood Urea Nitrogen 28 mg/dL (8-23); Calcium 8.2 mg/dL (8.6-10.3); Carbon Dioxide 26 mEq/L (23-29); Chloride 97 mEq/L (98-107); Glucose 183 mg/dL (70-105); Osmolality,Calculated 284 (280-300); Potassium 3.7 mEq/L (3.5-5.1); Sodium 132 mEq/L (136-145); eGFR For African Americans > 60 (> 60); eGFR For Non-African Americans 58 (> 60)
[2019-09-08] MEDS: Heparin 25,000 UNIT/250 ML D5W 25,000 UNIT/250 ML IV.SOLN IVC SCH (10:38)
[2019-09-08] MEDS: *HR* Heparin 5,000 UNIT/ML VIAL IVP PRN (10:38)
[2019-09-08] MEDS ORDERED: Sennosides/Docusate Sodium TABLET PO PRN (11:34)
[2019-09-08] MEDS ORDERED: polyethylene glycoL 3350 17 GM POWD.PACK PO PRN (11:35)
[2019-09-08] MEDS ORDERED: Metoprolol 100 MG TABLET PO SCH (13:30)
[2019-09-08] MEDS ORDERED: *HR* Metoprolol 5 MG/5 ML VIAL IVP PRN (13:39)
[2019-09-09 01:46] LABS: Albumin 2.5 g/dL (3.5-5.7); Bilirubin,Direct 0.2 mg/dL (0.0-0.2); Bilirubin,Indirect 0.5 mg/dL (0.0-1.0); Bilirubin,Total 0.7 mg/dL (0.3-1.0); Globulin 2.6 g/dL (2.4-3.5); Total Protein 5.1 g/dL (6.4-8.9)
[2019-09-09] MEDS: Budesonide/Formoterol 160/4.5 1 PUFF INH IH SCH ×2 (07:30→20:57)
[2019-09-09] MEDS: Dexamethasone 4 MG/ML VIAL IVP SCH (11:23)
[2019-09-09] MEDS: *HR* Heparin 5,000 UNIT/ML VIAL IVP PRN (11:25)
[2019-09-09] MEDS: Piperacillin/Tazobactam 3.375 GM in 0.9 % Sodium Chloride Mini Bag 100 ML IVPB SCH ×2 (17:14→23:35)
[2019-09-09] MEDS: Metoprolol XL (24 HR) Succ 50 MG TAB.ER.24H PO SCH (19:42)
[2019-09-09] MEDS: Heparin 25,000 UNIT/250 ML D5W 25,000 UNIT/250 ML IV.SOLN IVC SCH (19:45)
[2019-09-10 02:33] LABS: Basophils % 0.2 %; Hematocrit 29.1 % (37.5-50.1); Hemoglobin 9.3 g/dL (12.9-16.9); Immature Granulocytes % 2.5 % (0-4); Lymphocytes # 0.6 K/mcL (0.6-4.6); Lymphocytes % 5.5 %; Mean Corpuscular Hemoglobin 29.4 pg (28.0-33.3); Mean Corpuscular Volume 92.1 fL (83.0-100.0); Mean Platelet Volume 10.4 fL (9.4-12.4); Monocytes % 8.4 %; Neutrophils # 9.6 K/mcL (1.6-8.9); Platelet Count 233 K/mcL (140-400); Red Blood Count 3.16 M/mcL (4.19-5.50); Red Cell Distribution Width 15.7 % (11.5-14.5); Segmented Neutrophils % 83.4 %; White Blood Count 11.5 K/mcL (4.3-11.1)
[2019-09-10 02:51] LABS: Alanine Aminotransferase 13 Units/L (7-52); Albumin 2.5 g/dL (3.5-5.7); Alkaline Phosphatase 81 Units/L (34-104); Aspartate Amino Transferase 12 Units/L (13-39); BUN/Creatinine Ratio 23 (6-26); Bilirubin,Direct 0.2 mg/dL (0.0-0.2); Bilirubin,Indirect 0.5 mg/dL (0.0-1.0); Bilirubin,Total 0.7 mg/dL (0.3-1.0); Blood Urea Nitrogen 28 mg/dL (8-23); Calcium 8.3 mg/dL (8.6-10.3); Carbon Dioxide 30 mEq/L (23-29); Chloride 98 mEq/L (98-107); Globulin 2.5 g/dL (2.4-3.5); Glucose 140 mg/dL (70-105); Magnesium 1.9 mg/dL (1.6-2.6); Osmolality,Calculated 288 (280-300); Potassium 4.2 mEq/L (3.5-5.1); Sodium 135 mEq/L (136-145); eGFR For African Americans > 60 (> 60); eGFR For Non-African Americans 56 (> 60)
[2019-09-10] MEDS: Budesonide/Formoterol 160/4.5 1 PUFF INH IH SCH ×2 (07:50→19:43)
[2019-09-10] MEDS: Piperacillin/Tazobactam 3.375 GM in 0.9 % Sodium Chloride Mini Bag 100 ML IVPB SCH ×3 (08:20→22:17)
[2019-09-10] MEDS: Dexamethasone 4 MG/ML VIAL IVP SCH (08:20)
[2019-09-10] MEDS: Metoprolol XL (24 HR) Succ 50 MG TAB.ER.24H PO SCH ×2 (08:21→22:17)
[2019-09-10] MEDS: Heparin 25,000 UNIT/250 ML D5W 25,000 UNIT/250 ML IV.SOLN IVC SCH (09:31)
[2019-09-10] MEDS ORDERED: Apixaban 5 MG TABLET PO ONE (11:06)
[2019-09-10] MEDS: Furosemide 20 MG TABLET PO SCH (12:28)
[2019-09-10] MEDS: Apixaban 5 MG TABLET PO SCH (22:17)
[2019-09-11 05:27] LABS: Hematocrit 28.4 % (37.5-50.1); Hemoglobin 8.8 g/dL (12.9-16.9); Mean Corpuscular Hemoglobin 28.8 pg (28.0-33.3); Mean Corpuscular Volume 92.8 fL (83.0-100.0); Mean Platelet Volume 10.2 fL (9.4-12.4); Platelet Count 242 K/mcL (140-400); Red Blood Count 3.06 M/mcL (4.19-5.50); Red Cell Distribution Width 15.8 % (11.5-14.5); White Blood Count 9.9 K/mcL (4.3-11.1)
[2019-09-11 05:35] LABS: BUN/Creatinine Ratio 23 (6-26); Blood Urea Nitrogen 28 mg/dL (8-23); Carbon Dioxide 29 mEq/L (23-29); Chloride 102 mEq/L (98-107); Glucose 112 mg/dL (70-105); Osmolality,Calculated 288 (280-300); Potassium 3.8 mEq/L (3.5-5.1); Sodium 136 mEq/L (136-145); eGFR For African Americans > 60 (> 60); eGFR For Non-African Americans 58 (> 60)
[2019-09-11] MEDS: Budesonide/Formoterol 160/4.5 1 PUFF INH IH SCH (07:27)
[2019-09-11] MEDS: Metoprolol XL (24 HR) Succ 50 MG TAB.ER.24H PO SCH (08:40)
[2019-09-11] MEDS: Piperacillin/Tazobactam 3.375 GM in 0.9 % Sodium Chloride Mini Bag 100 ML IVPB SCH ×2 (08:40→16:44)
[2019-09-11] MEDS: Furosemide 20 MG TABLET PO SCH (08:40)
[2019-09-11] MEDS: Dexamethasone 4 MG/ML VIAL IVP SCH (08:40)
[2019-09-11] MEDS: Apixaban 5 MG TABLET PO SCH (08:42)
[2019-09-11] MEDS ORDERED: Aspirin Enteric Coated 81 MG Tablet PO SCH (09:00)
[2019-09-11 09:27] VITALS: BP 108/71
== END 2019-09-11 17:04 | disposition home or self-care (01) | DRG 177 ==
LOC: EMEROOARM 15:51 → 2ANU 15:51 → SUATTDRO 20:48 → 2ANU 21:21 → 2NENU 09-07 14:58 → SUATTDRO 09-08 13:29
PROVIDERS: ADMIT Internal Medicine; ATTEND Internal Medicine

== ENCOUNTER 2019-10-01 08:50 | Inpatient (IN) ==
[2019-10-01] MEDS ORDERED: 0.9 % Sodium Chloride 500 ML IVC ONE (09:18)
[2019-10-01] MEDS ORDERED: Dexamethasone 4 MG/ML VIAL IVP ONE (09:20)
[2019-10-01 10:09] LABS: Basophils # 0.1 K/mcL (0.0-0.2); Basophils % 0.7 %; Eosinophils % 0.2 %; Hematocrit 32.2 % (37.5-50.1); Hemoglobin 9.7 g/dL (12.9-16.9); Immature Granulocytes % 4.3 % (0-4); Lymphocytes # 1.9 K/mcL (0.6-4.6); Lymphocytes % 17.3 %; Mean Corpuscular HGB Conc 30.1 g/dL (31.6-35.5); Mean Corpuscular Volume 96.1 fL (83.0-100.0); Monocytes # 1.3 K/mcL (0.0-1.3); Monocytes % 11.9 %; Neutrophils # 7.1 K/mcL (1.6-8.9); Nucleated Red Blood Cells 0.3 /100 WBC (0); Platelet Count 284 K/mcL (140-400); Red Blood Count 3.35 M/mcL (4.19-5.50); Red Cell Distribution Width 17.4 % (11.5-14.5); Segmented Neutrophils % 65.6 %; White Blood Count 10.8 K/mcL (4.3-11.1)
[2019-10-01 10:11] LABS: VBG HCO3 24 mEq/L (21-27); VBG PCO2 49 mmHg (41-51); VBG PO2 101 mmHg (25-50)
[2019-10-01 10:25] LABS: BUN/Creatinine Ratio 20 (6-26); Blood Urea Nitrogen 24 mg/dL (8-23); Calcium 7.5 mg/dL (8.6-10.3); Carbon Dioxide 23 mEq/L (23-29); Chloride 108 mEq/L (98-107); Glucose 102 mg/dL (70-105); Osmolality,Calculated 292 (280-300); Potassium 4.1 mEq/L (3.5-5.1); Sodium 139 mEq/L (136-145); Troponin I < 0.03 ng/mL (< 0.04); eGFR For African Americans > 60 (> 60); eGFR For Non-African Americans 59 (> 60)
[2019-10-01] MEDS ORDERED: Piperacillin/Tazobactam 3.375 GM in 0.9 % Sodium Chloride Mini Bag 100 ML IVPB ONE (10:48)
[2019-10-01 11:24] LABS: Bacteria,Urine Few per hpf (None-Few); Bilirubin,Urine Negative (Negative); Blood,Urine Small (Negative); Clarity,Urine Turbid (Clear); Color,Urine Yellow (Yellow); Glucose,Urine (UA) Normal (Normal); Hyaline Casts,Urine Moderate per lpf (None Seen); Ketones,Urine Negative (Negative); Leukocyte Esterase,Urine Large (Negative); Mucus,Urine Few per lpf (None-Few); Nitrite,Urine Positive (Negative); Protein,Urine 30 mg/dL (Neg-Trace); Specific Gravity,Urine 1.022 (1.010-1.025); Squamous Epithelial Cell,Urine Few per hpf (None-Few); Urobilinogen,Urine Normal (Normal); WBC,Urine TNTC per hpf (0-3)
[2019-10-01] MEDS ORDERED: Isovue-370 500 ML BOTTLE IVP ONE (11:39)
[2019-10-01 12:22] LABS: Adenovirus Not Detected (Not Detect); Coronavirus 229E Not Detected (Not Detect); Coronavirus HKU1 Not Detected (Not Detect); Coronavirus NL63 Not Detected (Not Detect); Coronavirus OC43 Not Detected (Not Detect)
[2019-10-01 12:24] LABS: Bordetella Pertussis Not Detected (Not Detect); Chlamydophila pneumoniae Not Detected (Not Detect); Human Metapneumovirus Not Detected (Not Detect); Human Rhinovirus/Enterovirus Not Detected (Not Detect); Influenza A Subtype 2009 H1 Not Detected (Not Detect); Influenza B Not Detected (Not Detect); Mycoplasma pneumoniae Not Detected (Not Detect); Parainfluenza Virus 1 Not Detected (Not Detect); Parainfluenza Virus 2 Not Detected (Not Detect); Parainfluenza Virus 3 Not Detected (Not Detect); Parainfluenza Virus 4 Not Detected (Not Detect); Respiratory Syncytial Virus Not Detected (Not Detect)
[2019-10-01] MEDS ORDERED: Aminoglycoside Consult 1 EACH MC ONE (12:40)
[2019-10-01] MEDS ORDERED: *HR* Promethazine 25 MG/ML VIAL IVP PRN (14:19)
[2019-10-01] MEDS ORDERED: Acetaminophen 325 MG TABLET PO PRN (14:19)
[2019-10-01] MEDS ORDERED: Furosemide 40 MG/4 ML VIAL IVP SCH (14:30)
[2019-10-01] MEDS ORDERED: Amiodarone Premix 150 MG/100 ML BAG IVPB ONE (14:51)
[2019-10-01] MEDS ORDERED: Azithromycin 500 MG in 0.9 % Sodium Chloride 250 ML IVPB SCH (15:00)
[2019-10-01] MEDS ORDERED: Amiodarone Premix 360 MG/200 ML BAG IVC ONE (15:10)
[2019-10-01] MEDS: Cefepime HCl 2,000 MG in Water for inj. (sterile) 20 ML IVP SCH (15:13)
[2019-10-01] MEDS ORDERED: *HR* Heparin 5,000 UNIT/ML VIAL IVP PRN ×2 (18:03)
[2019-10-01] MEDS ORDERED: *HR* Heparin 5,000 UNIT/ML VIAL IVP ONE (18:03)
[2019-10-01] MEDS ORDERED: Heparin 25,000 UNIT/250 ML D5W 25,000 UNIT/250 ML IV.SOLN IVC SCH (18:15)
[2019-10-01] MEDS: Levalbuterol 1 PUFF INHALER IH SCH ×3 (18:34→23:43)
[2019-10-01 19:18] LABS: Hematocrit 33.4 % (37.5-50.1); Mean Corpuscular HGB Conc 29.9 g/dL (31.6-35.5); Mean Corpuscular Volume 96.8 fL (83.0-100.0); Mean Platelet Volume 9.9 fL (9.4-12.4); Platelet Count 236 K/mcL (140-400); Red Blood Count 3.45 M/mcL (4.19-5.50); Red Cell Distribution Width 17.6 % (11.5-14.5); White Blood Count 9.4 K/mcL (4.3-11.1)
[2019-10-01 19:25] LABS: INR 1.5; Prothrombin Time 17.5 Seconds (9.4-12.1)
[2019-10-01 19:31] LABS: Heparin anti-factor XA UFH 1.01 IU/mL (0.30-0.70)
[2019-10-01] MEDS: Ipratropium 1 PUFF INHALER IH SCH ×2 (20:00→23:43)
[2019-10-01] MEDS: Furosemide 40 MG/4 ML VIAL IVP SCH (20:17)
[2019-10-01 20:21] LABS: Activated Partial Thrombo Time 34.1 Seconds (26.0-36.0)
[2019-10-01] MEDS: Heparin 25,000 UNIT/250 ML D5W 25,000 UNIT/250 ML IV.SOLN IVC SCH (20:59)
[2019-10-01] MEDS: Amiodarone Premix 360 MG/200 ML BAG IVC SCH (21:58)
[2019-10-02 02:17] LABS: Hematocrit 30.7 % (37.5-50.1); Hemoglobin 9.4 g/dL (12.9-16.9); Mean Corpuscular HGB Conc 30.6 g/dL (31.6-35.5); Mean Corpuscular Hemoglobin 29.2 pg (28.0-33.3); Mean Corpuscular Volume 95.3 fL (83.0-100.0); Mean Platelet Volume 10.2 fL (9.4-12.4); Platelet Count 243 K/mcL (140-400); Red Blood Count 3.22 M/mcL (4.19-5.50); Red Cell Distribution Width 17.4 % (11.5-14.5); White Blood Count 10.4 K/mcL (4.3-11.1)
[2019-10-02 02:28] LABS: Alanine Aminotransferase 11 Units/L (7-52); Albumin 2.2 g/dL (3.5-5.7); Albumin/Globulin Ratio 0.8 (1.1-2.2); Alkaline Phosphatase 101 Units/L (34-104); Aspartate Amino Transferase 12 Units/L (13-39); BUN/Creatinine Ratio 21 (6-26); Bilirubin,Total 0.5 mg/dL (0.3-1.0); Blood Urea Nitrogen 23 mg/dL (8-23); Calcium 7.7 mg/dL (8.6-10.3); Carbon Dioxide 21 mEq/L (23-29); Chloride 106 mEq/L (98-107); Globulin 2.6 g/dL (2.4-3.5); Glucose 206 mg/dL (70-105); Magnesium 1.1 mg/dL (1.6-2.6); Osmolality,Calculated 294 (280-300); Phosphorous 4.5 mg/dL (2.7-4.5); Potassium 3.7 mEq/L (3.5-5.1); Sodium 137 mEq/L (136-145); Total Protein 4.8 g/dL (6.4-8.9); eGFR For African Americans > 60 (> 60); eGFR For Non-African Americans > 60 (> 60)
[2019-10-02] MEDS: Levalbuterol 1 PUFF INHALER IH SCH ×6 (03:21→23:55)
[2019-10-02] MEDS: Ipratropium 1 PUFF INHALER IH SCH ×6 (03:21→23:55)
[2019-10-02] MEDS: Cefepime HCl 2,000 MG in Water for inj. (sterile) 20 ML IVP SCH ×2 (05:35→18:05)
[2019-10-02] MEDS: Dexamethasone 4 MG/ML VIAL IVP SCH (08:22)
[2019-10-02] MEDS: Furosemide 40 MG/4 ML VIAL IVP SCH ×2 (08:23→21:35)
[2019-10-02] MEDS: Aspirin Enteric Coated 81 MG Tablet PO SCH (08:24)
[2019-10-02] MEDS ORDERED: Dexamethasone 4 MG/ML VIAL IVP SCH (09:00)
[2019-10-02] MEDS: Amiodarone Premix 360 MG/200 ML BAG IVC SCH ×2 (09:57→22:57)
[2019-10-02] MEDS: Heparin 25,000 UNIT/250 ML D5W 25,000 UNIT/250 ML IV.SOLN IVC SCH (14:44)
[2019-10-02] MEDS: Melatonin 3 MG TABLET PO PRN (21:36)
[2019-10-03] MEDS: Levalbuterol 1 PUFF INHALER IH SCH ×5 (03:40→19:59)
[2019-10-03] MEDS: Ipratropium 1 PUFF INHALER IH SCH ×5 (03:40→19:59)
[2019-10-03 04:36] LABS: Basophils % 0.1 %; Hematocrit 27.9 % (37.5-50.1); Hemoglobin 8.7 g/dL (12.9-16.9); Immature Granulocytes % 2.4 % (0-4); Lymphocytes # 1.2 K/mcL (0.6-4.6); Lymphocytes % 7.7 %; Mean Corpuscular HGB Conc 31.2 g/dL (31.6-35.5); Mean Corpuscular Hemoglobin 28.9 pg (28.0-33.3); Mean Corpuscular Volume 92.7 fL (83.0-100.0); Monocytes # 1.2 K/mcL (0.0-1.3); Monocytes % 7.8 %; Neutrophils # 12.7 K/mcL (1.6-8.9); Nucleated Red Blood Cells 0.1 /100 WBC (0); Platelet Count 246 K/mcL (140-400); Red Blood Count 3.01 M/mcL (4.19-5.50); White Blood Count 15.5 K/mcL (4.3-11.1)
[2019-10-03 04:56] LABS: Calcium 7.8 mg/dL (8.6-10.3); Magnesium 2.2 mg/dL (1.6-2.6); Potassium 4.4 mEq/L (3.5-5.1)
[2019-10-03] MEDS: Cefepime HCl 2,000 MG in Water for inj. (sterile) 20 ML IVP SCH (05:53)
[2019-10-03] MEDS: Aspirin Enteric Coated 81 MG Tablet PO SCH (08:36)
[2019-10-03] MEDS: Dexamethasone 4 MG/ML VIAL IVP SCH (08:36)
[2019-10-03] MEDS: DilTIAZem 50 MG/50 ML IV.SOLN IVC SCH ×2 (10:32→20:34)
[2019-10-03] MEDS: Finasteride 5 MG TABLET PO SCH (10:33)
[2019-10-03] MEDS: cefTRIAXone 2,000 MG in Water for inj. (sterile) 20 ML IVP SCH (17:46)
[2019-10-03] MEDS: Heparin 25,000 UNIT/250 ML D5W 25,000 UNIT/250 ML IV.SOLN IVC SCH (20:33)
[2019-10-03] MEDS: Melatonin 3 MG TABLET PO PRN (22:13)
[2019-10-04] MEDS: Ipratropium 1 PUFF INHALER IH SCH ×7 (00:09→23:44)
[2019-10-04] MEDS: Levalbuterol 1 PUFF INHALER IH SCH ×7 (00:10→23:43)
[2019-10-04 03:40] LABS: Hematocrit 27.3 % (37.5-50.1); Hemoglobin 8.5 g/dL (12.9-16.9); Mean Corpuscular HGB Conc 31.1 g/dL (31.6-35.5); Mean Corpuscular Hemoglobin 29.2 pg (28.0-33.3); Mean Corpuscular Volume 93.8 fL (83.0-100.0); Mean Platelet Volume 9.9 fL (9.4-12.4); Platelet Count 229 K/mcL (140-400); Red Blood Count 2.91 M/mcL (4.19-5.50); Red Cell Distribution Width 18.1 % (11.5-14.5)
[2019-10-04 03:58] LABS: Calcium 7.9 mg/dL (8.6-10.3); Potassium 4.4 mEq/L (3.5-5.1)
[2019-10-04] MEDS: Aspirin Enteric Coated 81 MG Tablet PO SCH (09:13)
[2019-10-04] MEDS: Finasteride 5 MG TABLET PO SCH (09:13)
[2019-10-04] MEDS: Dexamethasone 4 MG/ML VIAL IVP SCH (09:14)
[2019-10-04] MEDS: Albumin 25% 25gram/100mL 25 GM/100 ML IV.SOLN IVPB SCH ×2 (09:14→14:36)
[2019-10-04] MEDS: cefTRIAXone 2,000 MG in Water for inj. (sterile) 20 ML IVP SCH (16:51)
[2019-10-04] MEDS: Melatonin 3 MG TABLET PO PRN (21:09)
[2019-10-05] MEDS: Albumin 25% 25gram/100mL 25 GM/100 ML IV.SOLN IVPB SCH ×4 (00:05→23:38)
[2019-10-05] MEDS: Heparin 25,000 UNIT/250 ML D5W 25,000 UNIT/250 ML IV.SOLN IVC SCH (02:46)
[2019-10-05] MEDS: Levalbuterol 1 PUFF INHALER IH SCH ×6 (03:18→23:36)
[2019-10-05] MEDS: Ipratropium 1 PUFF INHALER IH SCH ×6 (03:18→23:35)
[2019-10-05 06:14] LABS: BUN/Creatinine Ratio 31 (6-26); Blood Urea Nitrogen 41 mg/dL (8-23); Calcium 8.5 mg/dL (8.6-10.3); Carbon Dioxide 23 mEq/L (23-29); Chloride 104 mEq/L (98-107); Glucose 189 mg/dL (70-105); Magnesium 1.9 mg/dL (1.6-2.6); Osmolality,Calculated 293 (280-300); Potassium 4.3 mEq/L (3.5-5.1); Sodium 134 mEq/L (136-145); eGFR For African Americans > 60 (> 60); eGFR For Non-African Americans 52 (> 60)
[2019-10-05] MEDS: Aspirin Enteric Coated 81 MG Tablet PO SCH (09:38)
[2019-10-05] MEDS: Dexamethasone 4 MG/ML VIAL IVP SCH (09:39)
[2019-10-05] MEDS: Finasteride 5 MG TABLET PO SCH (09:39)
[2019-10-05] MEDS: levoFLOXacin 750 MG TABLET PO SCH (12:28)
[2019-10-05] MEDS: Metoprolol XL (24 HR) Succ 50 MG TAB.ER.24H PO SCH (17:16)
[2019-10-05] MEDS: Apixaban 5 MG TABLET PO SCH (19:33)
[2019-10-06] MEDS: Ipratropium 1 PUFF INHALER IH SCH ×6 (03:15→23:53)
[2019-10-06] MEDS: Levalbuterol 1 PUFF INHALER IH SCH ×6 (03:15→23:53)
[2019-10-06 06:17] LABS: Hematocrit 22.5 % (37.5-50.1); Mean Corpuscular HGB Conc 31.1 g/dL (31.6-35.5); Mean Corpuscular Volume 96.6 fL (83.0-100.0); Mean Platelet Volume 10.3 fL (9.4-12.4); Platelet Count 200 K/mcL (140-400); Red Blood Count 2.33 M/mcL (4.19-5.50); Red Cell Distribution Width 18.7 % (11.5-14.5); White Blood Count 13.5 K/mcL (4.3-11.1)
[2019-10-06 06:39] LABS: BUN/Creatinine Ratio 32 (6-26); Blood Urea Nitrogen 39 mg/dL (8-23); Calcium 9.4 mg/dL (8.6-10.3); Carbon Dioxide 23 mEq/L (23-29); Chloride 105 mEq/L (98-107); Glucose 169 mg/dL (70-105); Magnesium 1.9 mg/dL (1.6-2.6); Osmolality,Calculated 295 (280-300); Phosphorous 2.4 mg/dL (2.7-4.5); Sodium 136 mEq/L (136-145); eGFR For African Americans > 60 (> 60); eGFR For Non-African Americans 56 (> 60)
[2019-10-06] MEDS ORDERED: Furosemide 20 MG/2 ML VIAL IVP ONE (08:35)
[2019-10-06] MEDS: levoFLOXacin 750 MG TABLET PO SCH (08:39)
[2019-10-06] MEDS: Aspirin Enteric Coated 81 MG Tablet PO SCH (08:39)
[2019-10-06] MEDS: Finasteride 5 MG TABLET PO SCH (08:39)
[2019-10-06] MEDS: Apixaban 5 MG TABLET PO SCH ×2 (08:39→20:36)
[2019-10-06] MEDS: dexAMETHasone 4 MG TABLET PO SCH (08:39)
[2019-10-06] MEDS: Metoprolol XL (24 HR) Succ 50 MG TAB.ER.24H PO SCH ×2 (08:43→20:36)
[2019-10-06] MEDS ORDERED: DilTIAZem 50 MG/50 ML IV.SOLN IVC SCH (08:45)
[2019-10-06] MEDS ORDERED: Furosemide 20 MG TABLET PO SCH (09:00)
[2019-10-06] MEDS: DilTIAZem CD (24hr) 120 MG CAP.ER.24H PO SCH (17:01)
[2019-10-07] MEDS: Levalbuterol 1 PUFF INHALER IH SCH ×6 (03:37→23:43)
[2019-10-07] MEDS: Ipratropium 1 PUFF INHALER IH SCH ×6 (03:37→23:43)
[2019-10-07 04:18] LABS: Hematocrit 26.1 % (37.5-50.1); Mean Corpuscular HGB Conc 30.7 g/dL (31.6-35.5); Mean Corpuscular Hemoglobin 29.2 pg (28.0-33.3); Mean Corpuscular Volume 95.3 fL (83.0-100.0); Mean Platelet Volume 10.5 fL (9.4-12.4); Platelet Count 251 K/mcL (140-400); Red Blood Count 2.74 M/mcL (4.19-5.50); Red Cell Distribution Width 18.9 % (11.5-14.5); White Blood Count 15.6 K/mcL (4.3-11.1)
[2019-10-07 04:51] LABS: BUN/Creatinine Ratio 33 (6-26); Blood Urea Nitrogen 40 mg/dL (8-23); Calcium 9.6 mg/dL (8.6-10.3); Carbon Dioxide 21 mEq/L (23-29); Chloride 104 mEq/L (98-107); Glucose 140 mg/dL (70-105); Magnesium 1.9 mg/dL (1.6-2.6); Osmolality,Calculated 296 (280-300); Potassium 4.2 mEq/L (3.5-5.1); Sodium 137 mEq/L (136-145); eGFR For African Americans > 60 (> 60); eGFR For Non-African Americans 58 (> 60)
[2019-10-07] MEDS: dexAMETHasone 4 MG TABLET PO SCH (08:15)
[2019-10-07] MEDS: levoFLOXacin 750 MG TABLET PO SCH (08:15)
[2019-10-07] MEDS: Aspirin Enteric Coated 81 MG Tablet PO SCH (08:15)
[2019-10-07] MEDS: Apixaban 5 MG TABLET PO SCH ×2 (08:15→20:59)
[2019-10-07] MEDS: Finasteride 5 MG TABLET PO SCH (08:15)
[2019-10-07] MEDS: DilTIAZem CD (24hr) 120 MG CAP.ER.24H PO SCH (08:15)
[2019-10-07] MEDS: Metoprolol XL (24 HR) Succ 50 MG TAB.ER.24H PO SCH ×2 (10:22→20:59)
[2019-10-08] MEDS: Levalbuterol 1 PUFF INHALER IH SCH ×3 (03:11→12:03)
[2019-10-08] MEDS: Ipratropium 1 PUFF INHALER IH SCH ×3 (03:11→12:03)
[2019-10-08] MEDS: dexAMETHasone 4 MG TABLET PO SCH (07:40)
[2019-10-08] MEDS: levoFLOXacin 750 MG TABLET PO SCH (07:40)
[2019-10-08] MEDS: DilTIAZem CD (24hr) 120 MG CAP.ER.24H PO SCH (07:40)
[2019-10-08] MEDS: Apixaban 5 MG TABLET PO SCH (07:40)
[2019-10-08] MEDS: Aspirin Enteric Coated 81 MG Tablet PO SCH (07:40)
[2019-10-08] MEDS: Finasteride 5 MG TABLET PO SCH (07:40)
[2019-10-08] MEDS: Metoprolol XL (24 HR) Succ 50 MG TAB.ER.24H PO SCH (07:41)
[2019-10-08 08:07] VITALS: BP 130/86
== END 2019-10-08 14:36 | disposition home health service (06) | DRG 871 ==
LOC: 2NENU 08:50 → EMEROOARM 08:50 → 2NENU 13:06
PROVIDERS: ADMIT Family Medicine; ATTEND Family Medicine

== ENCOUNTER 2019-12-04 11:20 | Inpatient (IN) ==
[2019-12-04] MEDS ORDERED: 0.9 % Sodium Chloride 500 ML IVC ONE (11:38)
[2019-12-04 11:49] LABS: Basophils % 0.2 %; Eosinophils # 0.2 K/mcL (0.0-0.6); Eosinophils % 1.7 %; Hemoglobin 9.4 g/dL (12.9-16.9); Immature Granulocytes % 0.6 % (0-4); Lymphocytes # 2.5 K/mcL (0.6-4.6); Lymphocytes % 19.8 %; Mean Corpuscular HGB Conc 29.4 g/dL (31.6-35.5); Mean Corpuscular Hemoglobin 26.4 pg (28.0-33.3); Mean Corpuscular Volume 89.9 fL (83.0-100.0); Mean Platelet Volume 9.4 fL (9.4-12.4); Monocytes # 1.6 K/mcL (0.0-1.3); Monocytes % 12.1 %; Neutrophils # 8.4 K/mcL (1.6-8.9); Platelet Count 372 K/mcL (140-400); Red Blood Count 3.56 M/mcL (4.19-5.50); Red Cell Distribution Width 16.1 % (11.5-14.5); Segmented Neutrophils % 65.6 %; White Blood Count 12.8 K/mcL (4.3-11.1)
[2019-12-04 13:13] LABS: BUN/Creatinine Ratio 19 (6-26); Blood Urea Nitrogen 15 mg/dL (8-23); Calcium 9.9 mg/dL (8.6-10.3); Carbon Dioxide 25 mEq/L (23-29); Chloride 102 mEq/L (98-107); Glucose 92 mg/dL (70-105); Osmolality,Calculated 284 (280-300); Potassium 3.9 mEq/L (3.5-5.1); Sodium 137 mEq/L (136-145); Troponin I < 0.03 ng/mL (< 0.04); eGFR For African Americans > 60 (> 60); eGFR For Non-African Americans > 60 (> 60)
[2019-12-04] MEDS ORDERED: Isovue-370 500 ML BOTTLE IVP ONE (13:30)
[2019-12-04 15:10] LABS: Bilirubin,Urine Negative (Negative); Blood,Urine Negative (Negative); Clarity,Urine Clear (Clear); Color,Urine Yellow (Yellow); Glucose,Urine (UA) Normal (Normal); Ketones,Urine Negative (Negative); Leukocyte Esterase,Urine Negative (Negative); Nitrite,Urine Negative (Negative); PH,Urine 5.5 pH Units (5.0-8.0); Protein,Urine Trace mg/dL (Neg-Trace); Specific Gravity,Urine 1.027 (1.010-1.025); Urobilinogen,Urine Normal (Normal)
[2019-12-04] MEDS ORDERED: Piperacillin/Tazobactam 3.375 GM in 0.9 % Sodium Chloride Mini Bag 100 ML IVPB ONE (15:25)
[2019-12-04 15:32] LABS: Adenovirus Not Detected (Not Detect); Bordetella Pertussis Not Detected (Not Detect); Chlamydophila pneumoniae Not Detected (Not Detect); Coronavirus 229E Not Detected (Not Detect); Coronavirus HKU1 Not Detected (Not Detect); Coronavirus NL63 Not Detected (Not Detect); Coronavirus OC43 Not Detected (Not Detect); Human Metapneumovirus Not Detected (Not Detect); Human Rhinovirus/Enterovirus Not Detected (Not Detect); Influenza A Subtype 2009 H1 Not Detected (Not Detect); Influenza B Not Detected (Not Detect); Mycoplasma pneumoniae Not Detected (Not Detect); Parainfluenza Virus 1 Not Detected (Not Detect); Parainfluenza Virus 2 Not Detected (Not Detect); Parainfluenza Virus 3 Not Detected (Not Detect); Parainfluenza Virus 4 Not Detected (Not Detect); Respiratory Syncytial Virus Not Detected (Not Detect); SARS-CoV-2 Not Detected (Not Detect)
[2019-12-04] MEDS ORDERED: Ondansetron 4 MG/2 ML VIAL IVP PRN (15:53)
[2019-12-04] MEDS ORDERED: Naloxone 0.4 MG/ML INJ IVP PRN (15:53)
[2019-12-04] MEDS ORDERED: Perflutren Lipid Microsphere 1.3 ML in 0.9 % Sodium Chloride 8.7 ML IVP PRN (15:56)
[2019-12-04] MEDS ORDERED: 0.9 % Sodium Chloride 1,000 ML IVC SCH (16:00)
[2019-12-04] MEDS ORDERED: Levalbuterol 1 PUFF INHALER IH PRN (17:04)
[2019-12-04] MEDS ORDERED: Cyanocobalamin (B-12) 1,000 MCG/ML VIAL IM SCH (17:15)
[2019-12-04] MEDS ORDERED: Ergocalciferol (VIT D2) 50,000 UNIT (1.25MG) CAP PO SCH (17:15)
[2019-12-04] MEDS: *HR* Digoxin 0.5 MG/2 ML AMPUL IVP SCH ×3 (18:18→23:22)
[2019-12-04] MEDS: Budesonide/Formoterol 160/4.5 1 PUFF INH IH SCH (19:34)
[2019-12-04] MEDS: Apixaban 5 MG TABLET PO SCH (20:25)
[2019-12-04] MEDS: Piperacillin/Tazobactam 3.375 GM in 0.9 % Sodium Chloride Mini Bag 100 ML IVPB SCH (23:22)
[2019-12-05 01:56] LABS: BUN/Creatinine Ratio 18 (6-26); Blood Urea Nitrogen 13 mg/dL (8-23); Calcium 8.9 mg/dL (8.6-10.3); Carbon Dioxide 25 mEq/L (23-29); Chloride 104 mEq/L (98-107); Glucose 78 mg/dL (70-105); Osmolality,Calculated 283 (280-300); Potassium 3.8 mEq/L (3.5-5.1); Sodium 137 mEq/L (136-145); eGFR For African Americans > 60 (> 60); eGFR For Non-African Americans > 60 (> 60)
[2019-12-05 01:58] LABS: Basophils % 0.3 %; Eosinophils # 0.3 K/mcL (0.0-0.6); Eosinophils % 2.8 %; Hematocrit 26.8 % (37.5-50.1); Hemoglobin 8.1 g/dL (12.9-16.9); Immature Granulocytes % 0.5 % (0-4); Lymphocytes # 1.6 K/mcL (0.6-4.6); Lymphocytes % 16.9 %; Mean Corpuscular HGB Conc 30.2 g/dL (31.6-35.5); Mean Corpuscular Hemoglobin 27.4 pg (28.0-33.3); Mean Corpuscular Volume 90.5 fL (83.0-100.0); Monocytes # 1.1 K/mcL (0.0-1.3); Monocytes % 11.8 %; Neutrophils # 6.4 K/mcL (1.6-8.9); Platelet Count 309 K/mcL (140-400); Red Blood Count 2.96 M/mcL (4.19-5.50); Red Cell Distribution Width 15.9 % (11.5-14.5); Segmented Neutrophils % 67.7 %; White Blood Count 9.4 K/mcL (4.3-11.1)
[2019-12-05] MEDS: *HR* Digoxin 0.5 MG/2 ML AMPUL IVP SCH (05:32)
[2019-12-05] MEDS ORDERED: *HR* LORazepam 0.5 MG TABLET PO PRN (07:12)
[2019-12-05] MEDS: Apixaban 5 MG TABLET PO SCH ×2 (07:47→20:49)
[2019-12-05] MEDS: Finasteride 5 MG TABLET PO SCH (07:47)
[2019-12-05] MEDS: Aspirin Enteric Coated 81 MG Tablet PO SCH (07:47)
[2019-12-05] MEDS: Budesonide/Formoterol 160/4.5 1 PUFF INH IH SCH ×2 (08:01→19:33)
[2019-12-05 08:45] LABS: % Iron Saturation 12 % (20-55); Iron 24 mcg/dL (65-175); Transferrin 139 mg/dL (203-362)
[2019-12-05] MEDS: Piperacillin/Tazobactam 3.375 GM in 0.9 % Sodium Chloride Mini Bag 100 ML IVPB SCH ×3 (08:59→23:57)
[2019-12-05] MEDS ORDERED: Doxycycline 100 MG in 0.9 % Sodium Chloride Mini Bag 100 ML IVPB SCH (09:00)
[2019-12-05 09:03] LABS: Ferritin 182 ng/mL (20-250)
[2019-12-05 09:08] LABS: Folate 9.5 ng/mL (3.0-16.0)
[2019-12-05] MEDS ORDERED: *HR* Digoxin 0.25 MG TABLET PO ONE (14:00)
[2019-12-05] MEDS ORDERED: Iron Sucrose Complex 400 MG in 0.9 % Sodium Chloride 250 ML IVPB ONE (17:15)
[2019-12-05] MEDS: Doxycycline 100 MG in 0.9 % Sodium Chloride Mini Bag 100 ML IVPB SCH (20:49)
[2019-12-06 07:43] LABS: Acinetobacter baumannii by PCR Not Detected (Not Detect); Candida albicans by PCR Not Detected (Not Detect); Candida glabrata by PCR Not Detected (Not Detect); Candida krusei by PCR Not Detected (Not Detect); Candida parapsilosis by PCR Not Detected (Not Detect); Candida tropicalis by PCR Not Detected (Not Detect); Enterobacter cloacae Cmplx PCR Not Detected (Not Detect); Enterobacteriaceae by PCR Not Detected (Not Detect); Enterococcus by PCR Not Detected (Not Detect); Escherichia coli by PCR Not Detected (Not Detect); Klebsiella oxytoca by PCR Not Detected (Not Detect); Klebsiella pneumoniae by PCR Not Detected (Not Detect); Proteus by PCR Not Detected (Not Detect); Pseudomonas aeruginosa by PCR Not Detected (Not Detect); Serratia marcescens by PCR Not Detected (Not Detect); Staphylococcus aureus by PCR Not Detected (Not Detect); Staphylococcus by PCR Not Detected (Not Detect); Streptococcus agalactiae(B)PCR Not Detected (Not Detect); Streptococcus by PCR Not Detected (Not Detect); Streptococcus pneumoniae PCR Not Detected (Not Detect); Streptococcus pyogenes (A) PCR Not Detected (Not Detect)
[2019-12-06 07:45] LABS: Hematocrit 29.1 % (37.5-50.1); Hemoglobin 8.7 g/dL (12.9-16.9); Mean Corpuscular HGB Conc 29.9 g/dL (31.6-35.5); Mean Corpuscular Hemoglobin 26.5 pg (28.0-33.3); Mean Corpuscular Volume 88.7 fL (83.0-100.0); Mean Platelet Volume 9.4 fL (9.4-12.4); Platelet Count 331 K/mcL (140-400); Red Blood Count 3.28 M/mcL (4.19-5.50); White Blood Count 11.2 K/mcL (4.3-11.1)
[2019-12-06] MEDS: Doxycycline 100 MG in 0.9 % Sodium Chloride Mini Bag 100 ML IVPB SCH ×2 (07:45→20:20)
[2019-12-06] MEDS: *HR* Digoxin 0.125 MG TABLET PO SCH (07:47)
[2019-12-06] MEDS: Apixaban 5 MG TABLET PO SCH ×2 (07:47→20:20)
[2019-12-06] MEDS: Finasteride 5 MG TABLET PO SCH (07:47)
[2019-12-06] MEDS: Aspirin Enteric Coated 81 MG Tablet PO SCH (07:47)
[2019-12-06] MEDS: Budesonide/Formoterol 160/4.5 1 PUFF INH IH SCH ×2 (07:57→20:00)
[2019-12-06 08:04] LABS: BUN/Creatinine Ratio 15 (6-26); Blood Urea Nitrogen 11 mg/dL (8-23); Calcium 9.1 mg/dL (8.6-10.3); Carbon Dioxide 25 mEq/L (23-29); Chloride 105 mEq/L (98-107); Glucose 86 mg/dL (70-105); Osmolality,Calculated 283 (280-300); Potassium 3.7 mEq/L (3.5-5.1); Sodium 137 mEq/L (136-145); eGFR For African Americans > 60 (> 60); eGFR For Non-African Americans > 60 (> 60)
[2019-12-06] MEDS: Piperacillin/Tazobactam 3.375 GM in 0.9 % Sodium Chloride Mini Bag 100 ML IVPB SCH ×3 (09:16→23:24)
[2019-12-07] MEDS: *HR* Digoxin 0.125 MG TABLET PO SCH (08:00)
[2019-12-07] MEDS: Finasteride 5 MG TABLET PO SCH (08:00)
[2019-12-07] MEDS: Aspirin Enteric Coated 81 MG Tablet PO SCH (08:00)
[2019-12-07] MEDS: Apixaban 5 MG TABLET PO SCH (08:00)
[2019-12-07] MEDS: Doxycycline 100 MG in 0.9 % Sodium Chloride Mini Bag 100 ML IVPB SCH (08:05)
[2019-12-07] MEDS ORDERED: Metoprolol XL (24 HR) Succ 25 MG TAB.ER.24H PO SCH (09:00)
[2019-12-07] MEDS: Piperacillin/Tazobactam 3.375 GM in 0.9 % Sodium Chloride Mini Bag 100 ML IVPB SCH (09:47)
[2019-12-07] MEDS: Budesonide/Formoterol 160/4.5 1 PUFF INH IH SCH (10:52)
[2019-12-07 11:01] VITALS: BP 123/73
[2019-12-07] MEDS ORDERED: Doxycycline 100 MG CAPSULE PO SCH (21:00)
== END 2019-12-07 14:14 | disposition home health service (06) | DRG 871 ==
LOC: EMEROOARM 11:20 → 2ANU 11:20 → SUATTDRO 12-06 17:44
PROVIDERS: ADMIT Internal Medicine; ATTEND Internal Medicine

== ENCOUNTER 2021-02-28 15:17 | Inpatient (IN) ==
[2021-02-28] MEDS ORDERED: Naloxone 0.4 MG/ML INJ IVP PRN (20:34)
[2021-02-28] MEDS ORDERED: Acetaminophen 325 MG TABLET PO PRN (20:34)
[2021-02-28] MEDS ORDERED: Ondansetron 4 MG/2 ML VIAL IVP PRN (20:34)
[2021-02-28] MEDS ORDERED: Ipratropium/Albuterol Neb 3 ML IH PRN (20:36)
[2021-03-01 00:15] LABS: Bilirubin,Urine Negative (Negative); Blood,Urine Moderate (Negative); Clarity,Urine Clear (Clear); Color,Urine Light-Yellow (Yellow); Glucose,Urine (UA) Normal (Normal); Ketones,Urine Negative (Negative); Leukocyte Esterase,Urine Negative (Negative); Mucus,Urine Few per lpf (None-Few); Nitrite,Urine Negative (Negative); Protein,Urine Trace mg/dL (Neg-Trace); RBC,Urine 15-30 per hpf (0-3); Specific Gravity,Urine 1.018 (1.010-1.025); Urobilinogen,Urine Normal (Normal); WBC,Urine 0-3 per hpf (0-3)
[2021-03-01] MEDS ORDERED: Levalbuterol 1 PUFF INHALER IH PRN (00:42)
[2021-03-01 01:54] LABS: Adenovirus Not Detected (Not Detect); Bordetella Pertussis Not Detected (Not Detect); Chlamydophila pneumoniae Not Detected (Not Detect); Coronavirus 229E Not Detected (Not Detect); Coronavirus HKU1 Not Detected (Not Detect); Coronavirus NL63 Not Detected (Not Detect); Coronavirus OC43 Not Detected (Not Detect); Human Metapneumovirus Not Detected (Not Detect); Human Rhinovirus/Enterovirus Not Detected (Not Detect); Influenza A Subtype 2009 H1 Not Detected (Not Detect); Influenza B Not Detected (Not Detect); Mycoplasma pneumoniae Not Detected (Not Detect); Parainfluenza Virus 1 Not Detected (Not Detect); Parainfluenza Virus 2 Not Detected (Not Detect); Parainfluenza Virus 3 Not Detected (Not Detect); Parainfluenza Virus 4 Not Detected (Not Detect); Respiratory Syncytial Virus Not Detected (Not Detect); SARS-CoV-2 Not Detected (Not Detect)
[2021-03-01 03:11] LABS: Hematocrit 33.8 % (37.5-50.1); Hemoglobin 10.5 g/dL (12.9-16.9); Mean Corpuscular HGB Conc 31.1 g/dL (31.6-35.5); Mean Corpuscular Hemoglobin 26.7 pg (28.0-33.3); Mean Platelet Volume 10.1 fL (9.4-12.4); Platelet Count 230 K/mcL (140-400); Red Blood Count 3.93 M/mcL (4.19-5.50); Red Cell Distribution Width 15.8 % (11.5-14.5); White Blood Count 28.5 K/mcL (4.3-11.1)
[2021-03-01 03:14] LABS: INR 1.3; Prothrombin Time 14.4 Seconds (9.4-12.1)
[2021-03-01 03:36] LABS: BUN/Creatinine Ratio 25 (6-26); Blood Urea Nitrogen 24 mg/dL (8-23); Calcium 8.6 mg/dL (8.6-10.3); Carbon Dioxide 26 mEq/L (23-29); Chloride 103 mEq/L (98-107); Chol/HDL Ratio 2.8 (0-4.9); Cholesterol 115 mg/dL (< 200); Glucose 116 mg/dL (70-105); HDL Cholesterol 41 mg/dL (40-59); LDL Cholesterol,Calculated 65 mg/dL (< 100); Magnesium 1.8 mg/dL (1.6-2.6); Osmolality,Calculated 291 (280-300); Potassium 3.9 mEq/L (3.5-5.1); Sodium 138 mEq/L (136-145); Triglycerides 47 mg/dL (< 150); eGFR For African Americans > 60 (> 60); eGFR For Non-African Americans > 60 (> 60)
[2021-03-01 03:42] LABS: Thyroid Stimulating Hormone 0.545 mcIU/mL (0.340-5.600)
[2021-03-01 04:11] LABS: Anisocytosis 1+ (Not Present); Lymphocytes # 2.9 K/mcL (0.6-4.6); Monocytes # 1.1 K/mcL (0.0-1.3); Neutrophils # 24.5 K/mcL (1.6-8.9); Platelet Estimate Normal (Normal)
[2021-03-01] MEDS ORDERED: MethylPREDNISolone 40 MG/ML VIAL IVP SCH (06:00)
[2021-03-01] MEDS ORDERED: Doxycycline 100 MG VIAL ONE (06:42)
[2021-03-01] MEDS: Doxycycline 100 MG in 0.9 % Sodium Chloride Mini Bag 100 ML IVPB SCH ×2 (06:58→18:48)
[2021-03-01] MEDS: Aspirin Enteric Coated 81 MG Tablet PO SCH (09:26)
[2021-03-01] MEDS: Apixaban 5 MG TABLET PO SCH ×2 (09:26→20:33)
[2021-03-01] MEDS: Metoprolol XL (24 HR) Succ 25 MG TAB.ER.24H PO SCH (09:26)
[2021-03-01] MEDS: cefTRIAXone 1,000 MG in 0.9 % Sodium Chloride Mini Bag 100 ML IVPB SCH (09:26)
[2021-03-01] MEDS: *HR* Digoxin 0.125 MG TABLET PO SCH (09:26)
[2021-03-01] MEDS: Budesonide/Formoterol 160/4.5 1 PUFF INH IH SCH ×2 (10:37→19:56)
[2021-03-01] MEDS: predniSONE 20 MG TABLET PO SCH (20:33)
[2021-03-02 03:26] LABS: Hematocrit 33.1 % (37.5-50.1); Hemoglobin 10.1 g/dL (12.9-16.9); Immature Granulocytes % 0.8 % (0-4); Lymphocytes # 0.9 K/mcL (0.6-4.6); Lymphocytes % 3.8 %; Mean Corpuscular HGB Conc 30.5 g/dL (31.6-35.5); Mean Corpuscular Volume 85.3 fL (83.0-100.0); Mean Platelet Volume 9.9 fL (9.4-12.4); Monocytes # 0.8 K/mcL (0.0-1.3); Monocytes % 3.6 %; Neutrophils # 20.3 K/mcL (1.6-8.9); Platelet Count 233 K/mcL (140-400); Red Blood Count 3.88 M/mcL (4.19-5.50); Segmented Neutrophils % 91.8 %; White Blood Count 22.1 K/mcL (4.3-11.1)
[2021-03-02 03:47] LABS: BUN/Creatinine Ratio 32 (6-26); Blood Urea Nitrogen 33 mg/dL (8-23); Calcium 8.9 mg/dL (8.6-10.3); Carbon Dioxide 27 mEq/L (23-29); Chloride 104 mEq/L (98-107); Glucose 133 mg/dL (70-105); Osmolality,Calculated 295 (280-300); Potassium 4.1 mEq/L (3.5-5.1); Sodium 138 mEq/L (136-145); eGFR For African Americans > 60 (> 60); eGFR For Non-African Americans > 60 (> 60)
[2021-03-02] MEDS: Doxycycline 100 MG in 0.9 % Sodium Chloride Mini Bag 100 ML IVPB SCH ×2 (06:22→17:26)
[2021-03-02] MEDS: Budesonide/Formoterol 160/4.5 1 PUFF INH IH SCH ×2 (08:54→21:09)
[2021-03-02] MEDS: cefTRIAXone 1,000 MG in 0.9 % Sodium Chloride Mini Bag 100 ML IVPB SCH (10:16)
[2021-03-02] MEDS: *HR* Digoxin 0.125 MG TABLET PO SCH (10:17)
[2021-03-02] MEDS: Aspirin Enteric Coated 81 MG Tablet PO SCH (10:17)
[2021-03-02] MEDS: Metoprolol XL (24 HR) Succ 25 MG TAB.ER.24H PO SCH (10:17)
[2021-03-02] MEDS: Apixaban 5 MG TABLET PO SCH ×2 (10:17→20:58)
[2021-03-02] MEDS: predniSONE 20 MG TABLET PO SCH (10:17)
[2021-03-03 02:55] VITALS: O2SAT 98
[2021-03-03 05:21] LABS: Basophils % 0.1 %; Hemoglobin 9.9 g/dL (12.9-16.9); Immature Granulocytes % 0.7 % (0-4); Lymphocytes # 1.3 K/mcL (0.6-4.6); Lymphocytes % 6.9 %; Mean Corpuscular Hemoglobin 25.8 pg (28.0-33.3); Mean Corpuscular Volume 86.2 fL (83.0-100.0); Mean Platelet Volume 10.5 fL (9.4-12.4); Monocytes % 5.6 %; Neutrophils # 15.8 K/mcL (1.6-8.9); Platelet Count 267 K/mcL (140-400); Red Blood Count 3.83 M/mcL (4.19-5.50); Segmented Neutrophils % 86.7 %; White Blood Count 18.3 K/mcL (4.3-11.1)
[2021-03-03 05:26] LABS: BUN/Creatinine Ratio 32 (6-26); Blood Urea Nitrogen 35 mg/dL (8-23); Calcium 8.7 mg/dL (8.6-10.3); Carbon Dioxide 25 mEq/L (23-29); Chloride 107 mEq/L (98-107); Glucose 104 mg/dL (70-105); Osmolality,Calculated 296 (280-300); Potassium 4.2 mEq/L (3.5-5.1); Sodium 139 mEq/L (136-145); eGFR For African Americans > 60 (> 60); eGFR For Non-African Americans > 60 (> 60)
[2021-03-03] MEDS: Doxycycline 100 MG in 0.9 % Sodium Chloride Mini Bag 100 ML IVPB SCH (05:57)
[2021-03-03 07:12] VITALS: BP 171/94; PULSE 68; TEMP 97.4
[2021-03-03] MEDS: Budesonide/Formoterol 160/4.5 1 PUFF INH IH SCH (08:04)
[2021-03-03] MEDS: Apixaban 5 MG TABLET PO SCH (08:35)
[2021-03-03] MEDS: predniSONE 20 MG TABLET PO SCH (08:35)
[2021-03-03] MEDS: Aspirin Enteric Coated 81 MG Tablet PO SCH (08:35)
[2021-03-03] MEDS: *HR* Digoxin 0.125 MG TABLET PO SCH (08:35)
[2021-03-03] MEDS: Metoprolol XL (24 HR) Succ 25 MG TAB.ER.24H PO SCH (08:35)
[2021-03-03] MEDS: cefTRIAXone 1,000 MG in 0.9 % Sodium Chloride Mini Bag 100 ML IVPB SCH (08:35)
== END 2021-03-03 09:45 | disposition home health service (06) | DRG 871 ==
LOC: 3NENU → SUATTDRO 21:36
PROVIDERS: ADMIT Internal Medicine; ATTEND Student in an Organized Health Care Education/Training Program

== ENCOUNTER 2021-12-28 12:45 | Observation (INO) ==
[2021-12-28] MEDS ORDERED: Naloxone 0.4 MG/ML INJ IVP PRN (13:56)
[2021-12-28] MEDS ORDERED: Melatonin 3 MG TABLET PO PRN (13:56)
[2021-12-28] MEDS ORDERED: Ondansetron ODT 4 MG TAB.RAPDIS SL PRN (13:56)
[2021-12-28 16:26] LABS: Amorphous Sediment,Urine Few per hpf (None-Few); Bacteria,Urine Few per hpf (None-Few); Bilirubin,Urine Negative (Negative); Blood,Urine Large (Negative); Clarity,Urine Clear (Clear); Color,Urine Yellow (Yellow); Glucose,Urine (UA) Normal (Normal); Hyaline Casts,Urine Few per lpf (None Seen); Ketones,Urine Negative (Negative); Leukocyte Esterase,Urine Negative (Negative); Mucus,Urine Few per lpf (None-Few); Nitrite,Urine Negative (Negative); Protein,Urine 30 mg/dL (Neg-Trace); RBC,Urine 50-100 per hpf (0-3); Specific Gravity,Urine 1.022 (1.010-1.025); Squamous Epithelial Cell,Urine Few per hpf (None-Few)
[2021-12-28 16:40] LABS: Basophils # 0.1 K/mcL (0.0-0.2); Basophils % 0.5 %; Eosinophils # 0.3 K/mcL (0.0-0.6); Eosinophils % 2.6 %; Hematocrit 30.4 % (37.5-50.1); Hemoglobin 9.2 g/dL (12.9-16.9); Immature Granulocytes % 2.6 % (0-4); Lymphocytes # 1.6 K/mcL (0.6-4.6); Mean Corpuscular HGB Conc 30.3 g/dL (31.6-35.5); Mean Corpuscular Hemoglobin 25.6 pg (28.0-33.3); Mean Corpuscular Volume 84.7 fL (83.0-100.0); Mean Platelet Volume 9.5 fL (9.4-12.4); Monocytes # 1.3 K/mcL (0.0-1.3); Monocytes % 10.1 %; Neutrophils # 8.9 K/mcL (1.6-8.9); Platelet Count 282 K/mcL (140-400); Red Blood Count 3.59 M/mcL (4.19-5.50); Red Cell Distribution Width 17.3 % (11.5-14.5); Segmented Neutrophils % 71.2 %; White Blood Count 12.5 K/mcL (4.3-11.1)
[2021-12-28 16:53] LABS: Calcium 8.8 mg/dL (8.6-10.3); Potassium 4.2 mEq/L (3.5-5.1)
[2021-12-28] MEDS ORDERED: Levalbuterol Neb 1.25 MG/3 ML IH PRN (18:54)
[2021-12-28] MEDS ORDERED: Acetaminophen 325 MG TABLET PO PRN (18:56)
[2021-12-28 19:36] LABS: Albumin 3.1 g/dL (3.5-5.7); Albumin/Globulin Ratio 1.1 (1.1-2.2); Bilirubin,Direct 0.3 mg/dL (0.0-0.2); Bilirubin,Indirect 0.5 mg/dL (0.0-1.0); Bilirubin,Total 0.8 mg/dL (0.3-1.0); Globulin 2.8 g/dL (2.4-3.5); Total Protein 5.9 g/dL (6.4-8.9)
[2021-12-28] MEDS: Olopatadine Hcl [Pataday] 2.5 ML Drops OP SCH (21:08)
[2021-12-28] MEDS: Budesonide/Formoterol 160/4.5 1 PUFF INH IH SCH (21:14)
[2021-12-29] MEDS: Budesonide/Formoterol 160/4.5 1 PUFF INH IH SCH ×2 (07:36→19:49)
[2021-12-29] MEDS: Olopatadine Hcl [Pataday] 2.5 ML Drops OP SCH ×2 (09:46→20:18)
[2021-12-29] MEDS: Aspirin Enteric Coated 81 MG Tablet PO SCH (09:46)
[2021-12-29] MEDS: Metoprolol XL (24 HR) Succ 25 MG TAB.ER.24H PO SCH (09:46)
[2021-12-29] MEDS: Torsemide 20 MG TABLET PO SCH (09:46)
[2021-12-29] MEDS: *HR* Digoxin 0.125 MG TABLET PO SCH (09:46)
[2021-12-29] MEDS ORDERED: Lidocaine Viscous Oral Soln 15 ML SOLUTION MM PRN (12:56)
[2021-12-29] MEDS ORDERED: *HR* FentaNYL (PF) 100 MCG/2 ML VIAL IVP PRN (12:56)
[2021-12-29] MEDS ORDERED: 0.9 % Sodium Chloride 500 ML IVC ONE (12:57)
[2021-12-29] MEDS ORDERED: *HR* Midazolam HCl 5 MG/5 ML VIAL IVP PRN (12:57)
[2021-12-29] MEDS: Ampicillin 2,000 MG in 0.9 % Sodium Chloride Mini Bag 100 ML IVPB SCH (18:23)
[2021-12-29] MEDS: Apixaban 5 MG TABLET PO SCH (20:18)
[2021-12-30] MEDS: Ampicillin 2,000 MG in 0.9 % Sodium Chloride Mini Bag 100 ML IVPB SCH ×4 (00:09→16:56)
[2021-12-30 07:25] LABS: Hematocrit 32.3 % (37.5-50.1); Hemoglobin 9.7 g/dL (12.9-16.9); Mean Corpuscular Hemoglobin 25.3 pg (28.0-33.3); Mean Corpuscular Volume 84.3 fL (83.0-100.0); Platelet Count 303 K/mcL (140-400); Red Blood Count 3.83 M/mcL (4.19-5.50); Red Cell Distribution Width 17.2 % (11.5-14.5); White Blood Count 13.3 K/mcL (4.3-11.1)
[2021-12-30] MEDS: Budesonide/Formoterol 160/4.5 1 PUFF INH IH SCH ×2 (07:48→20:06)
[2021-12-30 07:49] LABS: Calcium 8.5 mg/dL (8.6-10.3)
[2021-12-30] MEDS: Metoprolol XL (24 HR) Succ 25 MG TAB.ER.24H PO SCH (09:37)
[2021-12-30] MEDS: Apixaban 5 MG TABLET PO SCH ×2 (09:37→21:52)
[2021-12-30] MEDS: Aspirin Enteric Coated 81 MG Tablet PO SCH (09:37)
[2021-12-30] MEDS: *HR* Digoxin 0.125 MG TABLET PO SCH (09:37)
[2021-12-30] MEDS: Torsemide 20 MG TABLET PO SCH (09:37)
[2021-12-30] MEDS: Olopatadine Hcl [Pataday] 2.5 ML Drops OP SCH ×2 (09:44→21:52)
[2021-12-31] MEDS: Ampicillin 2,000 MG in 0.9 % Sodium Chloride Mini Bag 100 ML IVPB SCH ×2 (02:23→05:52)
[2021-12-31] MEDS: Budesonide/Formoterol 160/4.5 1 PUFF INH IH SCH (07:38)
[2021-12-31 08:15] VITALS: BP 111/66; PULSE 67; TEMP 98.5; O2SAT 99
[2021-12-31] MEDS: Metoprolol XL (24 HR) Succ 25 MG TAB.ER.24H PO SCH (08:15)
[2021-12-31] MEDS: Aspirin Enteric Coated 81 MG Tablet PO SCH (08:16)
[2021-12-31] MEDS: *HR* Digoxin 0.125 MG TABLET PO SCH (08:16)
[2021-12-31] MEDS: Torsemide 20 MG TABLET PO SCH (08:16)
[2021-12-31] MEDS: Apixaban 5 MG TABLET PO SCH (08:16)
[2021-12-31] MEDS: Olopatadine Hcl [Pataday] 2.5 ML Drops OP SCH (08:24)
== END 2021-12-31 13:20 | disposition home or self-care (01) ==
LOC: 3BNU → SUATTDRO 12:47
PROVIDERS: ADMIT Internal Medicine; ATTEND Internal Medicine